=== PATIENT | female | born 1995 | race Caucasian/White ===

== ENCOUNTER 2017-09-28 14:53 | Outpatient (CLI) | payer BC ==
--- NOTE | 2017-09-28 17:11 | Ultrasound Report ---
EXAM: ABDOMEN ULTRASOUND LIMITED, RUQ EXAM DATE: 09/28/2017 03:54 PM. CLINICAL HISTORY: Right upper quadrant pain. COMPARISON: None. TECHNIQUE: Real-time scanning was performed with static images obtained. FINDINGS: Liver: Normal in size. Hyperechoic echotexture. 15.3 cm. Main portal vein flow: Hepatopetal. Gallbladder: Normal. No stones, wall thickening, or sonographic Gallardo's sign. Biliary System: CBD measures 4 mm. No intrahepatic or extrahepatic ductal dilatation. Other: The visualized pancreas and right kidney are unremarkable. No free fluid. IMPRESSION: 1. Fatty liver. 2. Unremarkable gallbladder and ducts. [facility] Referring Provider Line: [phone] SITE ID: [id number]
== END 2017-09-28 14:54 | disposition home or self-care (01) ==
LOC: DI 14:53 → EDSEX 14:53 → DI 14:54
PROVIDERS: ATTEND Family Medicine
DX: R10.9 Unspecified abdominal pain (principal); K76.0 Fatty (change of) liver, not elsewhere classified
CPT/HCPCS: 76705

== ENCOUNTER 2018-05-18 09:44 | Emergency (ER) | payer BC ==
[2018-05-18] MEDS ORDERED: SODIUM CHLORIDE 0.9% 2,000 ML IV ONE (11:04)
[2018-05-18 12:02] LABS: GLUCOSE, URINE (UA) NEGATIVE (NEGATIVE); KETONES,URINE (UA) 15 mg/dL (NEGATIVE); LEUKOCYTE ESTERASE, URINE SMALL (NEGATIVE); NITRITE,URINE NEGATIVE (NEGATIVE); OCCULT BLOOD,URINE NEGATIVE (NEGATIVE); PROTEIN,URINE TRACE mg/dL (NEGATIVE); UROBILINOGEN,URINE 1 (NORMAL) E.U./dL (NORMAL)
[2018-05-18 12:10] LABS: BILIRUBIN,URINE SMALL (NEGATIVE); CLARITY,URINE CLOUDY (CLEAR); ICTOTEST,URINE POSITIVE
[2018-05-18 12:11] LABS: BUN - BLOOD UREA NITROGEN 7 mg/dL (6-20); CALCIUM 9.7 mg/dL (8.5-10.3); CARBON DIOXIDE - CO2 22 mmol/L (21-32); CHLORIDE 102 mmol/L (101-111); CREATININE 0.6 mg/dL (0.4-1.0); GFR - MDRD 123 (>89); GLUCOSE 87 mg/dL (70-100); SODIUM 136 mmol/L (135-145)
[2018-05-18 12:21] LABS: BACTERIA,URINE Moderate /HPF (None Seen); RBC,URINE None Seen /HPF (0-5); SQUAMOUS EPITHELIAL CELL,UR MOD Squamous (<= Few)
[2018-05-18 12:22] LABS: AMORPHOUS SEDIMENT,UR Marked /LPF
[2018-05-18 12:23] LABS: KETONES, SERUM (ACETEST) NEGATIVE (NEGATIVE)
--- NOTE | 2018-05-18 12:32 | ED Physician Documentation ---
History of Present Illness - Stated complaint Stated Complaint: DEHYDRATION/6WKS PREG - Chief complaint Chief Complaint: Abd Pain - Additonal information Additional information: hx from pt 22 y/o approx 6 weeks EGA followed by Paola Chambers nurse dye range tender went to clinic today with NV and lower abd pain no vag bleed or dc some urinary discomfort sent to ER for hydration nurse dye range tender states pt does not want a sono because she believes the sono during her last caused her miscarriage Review of Systems Constitutional: denies: Fever Cardiac: denies: Chest pain / pressure GI: reports: Abdominal Pain, Nausea, Vomiting. denies: Diarrhea : reports: Dysuria, Now EGA (6 weeks). denies: Discharge, Vaginal bleeding Endocrine: denies: Easy bruising / bleeding Immunocompromised: denies: Immunocompromised PD PAST MEDICAL HISTORY - Past Medical History GI: Other Psych: ADD/ADHD Other Past Medical History: IBS - Past Surgical History Past Surgical History: Yes General: Bowel surgery HEENT: Tonsil/Adenoidectomy - Present Medications Home Medications: Ambulatory Orders Medication Instructions Recorded Confirmed Pnv No.121/Iron/Folic Acid 1 each PO DAILY #30 tablet 05/18/18 [ Multivitamin Tablet] Pyridoxine HCl [Vitamin B-6] 25 mg PO Q8H PRN #10 tablet 05/18/18 - Allergies Allergies/Adverse Reactions: Allergies Allergy/AdvReac Type Severity Reaction Status Date / Time No Known Drug Allergies Allergy Verified 05/18/18 10:09 - Social History Does the pt smoke?: No Smoking Status: Never smoker Does the pt drink ETOH?: No Does the pt have substance abuse?: No - Immunizations Immunizations are current?: Yes PD ED PE NORMAL - Vitals Vital signs reviewed: Yes - Cardiac Cardiac: RRR - Respiratory Respiratory: No respiratory distress - Abdomen Abdomen: Soft, Other (TTP suprapubic, no focal RLQ pain) - Female Female : Deferred (no bleeding , pt very anxious about TV sono etc due to prior miscarriage) Results - Vitals Vitals: Vital Signs - 24 hr 05/18/18 10:05 Temperature 36.6 C Heart Rate 93 Respiratory 16 Rate Blood Pressure 130/83 H O2 Saturation 98 Oxygen O2 Source Room air - Labs Labs: Laboratory Tests 08/08/18 08/08/18 08/08/18 11:25 11:35 11:54 Sodium 136 Potassium 3.5 Chloride 102 Carbon Dioxide 22 Anion Gap 12.0 BUN 7 Creatinine 0.6 Estimated GFR (MDRD) 123 Glucose 87 Calcium 9.7 HCG, Quant 47453.00 Urine Color DARK YELLOW Urine Clarity CLOUDY Urine pH 8.0 H Ur Specific [place] 1.015 Urine Protein TRACE Urine Glucose (UA) NEGATIVE Urine Ketones 15 H Urine Occult Blood NEGATIVE Urine Nitrite NEGATIVE Urine Bilirubin SMALL H Urine Urobilinogen 1 (NORMAL) Ur Leukocyte Esterase SMALL H Urine RBC None Seen Urine WBC 4-5 Ur Squamous Epith Cells MOD Squamous H Amorphous Sediment Marked Urine Bacteria Moderate H Urine Mucus Ur Microscopic Review INDICATED Urine Culture Comments NOT INDICATED Serum Ketones NEGATIVE 05/18/18 15:08 Sodium Potassium Chloride Carbon Dioxide Anion Gap BUN Creatinine Estimated GFR (MDRD) Glucose Calcium HCG, Quant Urine Color YELLOW Urine Clarity HAZY Urine pH 7.0 Ur Specific [place] 1.020 Urine Protein NEGATIVE Urine Glucose (UA) NEGATIVE Urine Ketones >=80 H Urine Occult Blood NEGATIVE Urine Nitrite NEGATIVE Urine Bilirubin NEGATIVE Urine Urobilinogen 0.2 (NORMAL) Ur Leukocyte Esterase SMALL H Urine RBC 0-5 Urine WBC 4-5 Ur Squamous Epith Cells FEW Squamous Amorphous Sediment Few Urine Bacteria Rare Urine Mucus Few Strands Ur Microscopic Review INDICATED Urine Culture Comments INDICATED Serum Ketones PD MEDICAL DECISION MAKING - ED course ED course: + urine ketones but no serum ketones given 2 L NS UA first time noit a clean catch second time no UTI - deferred pelvic 2/2 pt anxiety and no bleeding but added GC chlamydia to urine sono = possible IUP gest and yolk sac but not definitive on trans abd sono - L adnexa fine, R not seen, no free fluid will dc with ectopic precautions and close fup called dye range tender to explain situation and confirm follow up pt was feeling much better, abd non tender, tolerating PO, I carefully verbally and in writing explained all the finding s and precautions and need for follow up to her - Sepsis Event Vital Signs: Vital Signs - 24 hr 05/18/18 10:05 Temperature 36.6 C Heart Rate 93 Respiratory 16 Rate Blood Pressure 130/83 H O2 Saturation 98 Oxygen O2 Source Room air Departure - Departure Disposition: 01 Home, Self Care Clinical Impression: Abdominal pain affecting , Dehydration, Hyperemesis arising during Condition: Good Instructions: ED Dehydration, ED Abdominal Pain Rule Out Ectopic, ED Preg Morning Sickness, ED Miscarriage Poss, ED Care Follow-Up: Paola Chambers, LMW [Physician No Access] - Prescriptions: Pnv No.121/Iron/Folic Acid [ Multivitamin Tablet] 1 each PO DAILY #30 tablet Pyridoxine HCl [Vitamin B-6] 25 mg PO Q8H PRN #10 tablet PRN Reason: vomiting in Comments: The second urine sample did not show an infection - but cultures are running to be sure and the ER staff will call you if You were very dehydrated and we gave you 2 bags of IV fluids You had lower abdominal pain but your exam did not sggest appendicitis - if the pain localizes to the right lower abdomen we would want to check you again The ultrasound shows a probable early intrauterine - but it is too early to be sure and there is still a concern that the pain you are having could indicate a miscarriage or perhaps even an ectopic (where the baby implants outside the uterus which can cause dangerous or even fatal internal bleeding to the mother) Very close follow up with your dye range tender will be important to clarify if you might have an ectopic . You need to be seen Wednesday to have another blood test and another look with the ultrasound If at any time you have more severe abdominal pain, feel faint, have vaginal bleeding, or the pain localizes to one side of the abdomen or the other come straight back to the ER I have prescribed vitamins and also Vitamin B6 which is safe in for vomiting
--- NOTE | 2018-05-18 15:25 | Ultrasound Report ---
Procedure Date: 05/18/2018 Accession Number: [id number] / [id number] Procedure: US - OB First Trimester CPT Code: FULL RESULT: EXAM: OB First Trimester DATE: 05/18/2018 2:27 PM CLINICAL HISTORY: 6 wk EGA abd pain TECHNIQUE: Real-time scanning was performed with freight representative static images obtained. COMPARISON: None FINDINGS: Examination is limited by being limited due to transabdominal technique only as the patient could not tolerate transvaginal examination. The patient reports a last menstrual period of 04/06/2018. The patient reports she is , no beta-hCG level is available. A cystic structure within the endometrium, possibly gestational sac measures 13.3 mm which would correspond to an estimated gestational age of 5 weeks and 3 days. No embryo is identified, a possible yolk sac measures 3 mm. No cardiac activity is detected. There is no nearby fluid collection to suggest. Gestational hemorrhage. The right ovary is not seen. The left ovary measures 3.0 x 2.7 x 2.1 cm and appears overall unremarkable. There is no free pelvic fluid. IMPRESSION: Limited examination. If the patient is by laboratory test, this examination is radiographically classified as a of unknown location with a possible intrauterine gestational sac corresponding to a gestational age of 5 weeks and 3 days.
[2018-05-18 15:38] LABS: BILIRUBIN,URINE NEGATIVE (NEGATIVE); GLUCOSE, URINE (UA) NEGATIVE (NEGATIVE); KETONES,URINE (UA) >=80 mg/dL (NEGATIVE); LEUKOCYTE ESTERASE, URINE SMALL (NEGATIVE); NITRITE,URINE NEGATIVE (NEGATIVE); OCCULT BLOOD,URINE NEGATIVE (NEGATIVE); PROTEIN,URINE NEGATIVE (NEGATIVE); UROBILINOGEN,URINE 0.2 (NORMAL) E.U./dL (NORMAL)
[2018-05-18 15:39] LABS: CLARITY,URINE HAZY (CLEAR)
[2018-05-18 15:58] LABS: AMORPHOUS SEDIMENT,UR Few /LPF; BACTERIA,URINE Rare /HPF (None Seen); MUCUS,URINE Few Strands; RBC,URINE 0-5 /HPF (0-5); SQUAMOUS EPITHELIAL CELL,UR FEW Squamous (<= Few)
[2018-05-18 16:52] VITALS: BP 116/75
== END 2018-05-18 16:50 | disposition home or self-care (01) ==
LOC: ED 09:44
DX: O99.89 Other specified diseases and conditions complicating pregnancy, childbirth and the puerperium (principal); O21.1 Hyperemesis gravidarum with metabolic disturbance
CPT/HCPCS: 36415; 76801; 80048; 81001; 81003; 82009; 84702; 87086; 87491; 87591; 96360; 96361; 99283; 99284

== ENCOUNTER 2018-06-01 20:01 | Outpatient (CLI) | payer BC, MEDICAID ==
--- NOTE | 2018-06-01 21:01 | Ultrasound Report ---
Procedure Date: 06/01/2018 Accession Number: [id number] / [id number] Procedure: US - OB First Trimester CPT Code: FULL RESULT: EXAM: FIRST TRIMESTER OBSTETRIC ULTRASOUND (Less than 11 weeks) EXAM DATE: 06/01/2018 08:18 PM. CLINICAL HISTORY: . LMP: 04/06/2018. COMPARISONS: OB FIRST TRIMESTER 05/18/2018. TECHNIQUE: Transabdominal and transvaginal ultrasound examination with static image documentation. ASSESSMENT: Gestational Sac: Single intrauterine. Mean gestational sac diameter: 38 mm = 9 weeks 0 days. Embryo: 14 mm. 7 weeks 5 days. Cardiac activity: 161 bpm. Yolk sac: 4 mm. Amniotic fluid: Not accurately assessed at this gestational age. Early placenta: Not visible at this gestational age. Other: No perigestational fluid collection demonstrated. MATERNAL STRUCTURES: Uterus: Anteverted/Retroverted. Unremarkable. Cervix: Closed. Right Ovary/Adnexa: Unremarkable. Left Ovary/Adnexa: Unremarkable. Free Fluid: None. Other: None. IMPRESSION: 1. Single viable intrauterine at EGA 7 weeks 5 days with DIAMANTE 01/13/2019 based on crown-rump length, which is concordant with clinical dates. 2. Assigned dating is DIAMANTE 8 weeks 0 days based on last menstrual period. [facility]
== END 2018-06-01 20:02 | disposition home or self-care (01) ==
LOC: DI 20:01
PROVIDERS: ATTEND Midwife
DX: O26.841 Uterine size-date discrepancy, first trimester (principal); Z3A.01 Less than 8 weeks gestation of pregnancy
CPT/HCPCS: 76801

== ENCOUNTER 2018-07-05 17:22 | Emergency (ER) | payer BC, MEDICAID ==
--- NOTE | 2018-07-05 17:59 | ED Physician Documentation ---
PD HPI NVD - Stated complaint Stated Complaint: NAUSEA/SHAKING/13WK PREG - Chief complaint Chief Complaint: Abd Pain - History obtained from History obtained from: Patient - History of Present Illness Timing - onset: Yesterday Timing - duration: Days (2 days of nausea and vomiting with attempted oral intake. Feeling weak and lighteaded. She feels she passed out briefly when got up from sitting, a couple of times today.) Timing - details: Abrupt onset, Waxing and waning Associated symptoms: Fever. No: Abdominal pain, Chest pain, Hematemesis Contributing factors: Other (13 weeks and has had moderate gestational nausea. However, had not had the degree of symptoms she is having the past co uple of days.). No: Sick contact, Bad food Improved by: Vomiting Worsened by: Eating Similar symptoms before: Has not had sx before Review of Systems Constitutional: reports: Myalgias. denies: Fever, Chills Nose: denies: Rhinorrhea / runny nose, Congestion Throat: denies: Sore throat Respiratory: denies: Cough GI: reports: Nausea, Vomiting. denies: Abdominal Pain, Abdominal Swelling, Constipation, Diarrhea : reports: Now EGA (13 weeks). denies: Dysuria, Frequency, Discharge, Irregular menses Skin: denies: Rash, Lesions PD PAST MEDICAL HISTORY - Past Medical History Cardiovascular: None Respiratory: None Neuro: None GI: Other Psych: Anxiety, ADD/ADHD - Past Surgical History Past Surgical History: Yes General: Bowel surgery HEENT: Tonsil/Adenoidectomy - Present Medications Home Medications: Ambulatory Orders Medication Instructions Recorded Confirmed Pnv No.121/Iron/Folic Acid 1 each PO DAILY #30 tablet 05/18/18 [ Multivitamin Tablet] Pyridoxine HCl [Vitamin B-6] 25 mg PO Q8H PRN #10 tablet 05/18/18 Cyclobenzaprine [Flexeril] 10 mg PO BID #15 tablet 07/05/18 Famotidine [Pepcid] 20 mg PO ONCE #30 tablet 07/05/18 Ondansetron HCl [Zofran] 4 mg PO Q6H PRN #20 tablet 07/05/18 - Allergies Allergies/Adverse Reactions: Allergies Allergy/AdvReac Type Severity Reaction Status Date / Time No Known Drug Allergies Allergy Verified 05/18/18 10:09 - Social History Does the pt smoke?: No Smoking Status: Never smoker Does the pt drink ETOH?: No Does the pt have substance abuse?: No - Immunizations Immunizations are current?: Yes PD ED PE NORMAL - Vitals Vital signs reviewed: Yes - General General: Alert and oriented X 3, Well developed/nourished, Other (anxious but pleasant. ) - HEENT HEENT: PERRL, Pharynx benign. No: Moist mucous membranes - Neck Neck: Supple, no meningeal sign, No adenopathy - Cardiac Cardiac: No murmur. No: RRR (regular but tachycardic) - Respiratory Respiratory: Clear bilaterally - Abdomen Abdomen: Normal bowel sounds, Soft, Non tender, Non distended, No organomegaly, Other (bedside U/S showing normal IUP c/w dates and having good heart beat and movement. ) - Female Female : Deferred - Rectal Rectal: Deferred - Back Back: No CVA TTP - Derm Derm: Normal color, Warm and dry - Extremities Extremities: No tenderness to palpate, Normal ROM s pain, No edema, No calf tenderness / cord - Neuro Neuro: Alert and oriented X 3, No motor deficit, Normal speech Results - Vitals Vitals: Oxygen O2 Source Room air - Labs Labs: Laboratory Tests 07/05/18 07/05/18 17:45 20:00 Sodium 137 Potassium 3.3 L Chloride 102 Carbon Dioxide 23 Anion Gap 12.0 BUN 7 Creatinine 0.5 Estimated GFR (MDRD) 152 Glucose 86 Calcium 9.7 Total Bilirubin 0.9 AST 19 ALT 17 Alkaline Phosphatase 61 Total Protein 7.8 Albumin 4.1 Globulin 3.7 Albumin/Globulin Ratio 1.1 Lipase 21 L Urine Color YELLOW Urine Clarity HAZY Urine pH 6.0 Ur Specific [place] >=1.030 H Urine Protein NEGATIVE Urine Glucose (UA) NEGATIVE Urine Ketones >=80 H Urine Occult Blood NEGATIVE Urine Nitrite NEGATIVE Urine Bilirubin NEGATIVE Urine Urobilinogen 0.2 (NORMAL) Ur Leukocyte Esterase TRACE H Urine RBC 0-5 Urine WBC 4-5 Ur Squamous Epith Cells MANY Squamous H Urine Bacteria Many H Ur Microscopic Review INDICATED Urine Culture Comments NOT INDICATED PD MEDICAL DECISION MAKING - ED course Complexity details: re-evaluated patient (feeling improved with fluids and meds. She has some tenderness epigastric area, presume some gastritis in addition to the vomiting. ), considered differential, d/w patient - Sepsis Event Vital Signs: Oxygen O2 Source Room air Departure - Departure Disposition: 01 Home, Self Care Clinical Impression: Nausea and vomiting Qualifiers: Vomiting type: unspecified Vomiting Intractability: non-intractable Qualified Code(s): R11.2 - Nausea with vomiting, unspecified Qualifiers: Weeks of gestation: 13 weeks Qualified Code(s): Z3A.13 - 13 weeks gestation of Gastritis Qualifiers: Gastritis type: unspecified gastritis Chronicity: acute Gastritis bleeding: without bleeding Qualified Code(s): K29.00 - Acute gastritis without bleeding Condition: Stable Record reviewed to determine appropriate education?: Yes Instructions: ED Gastritis, ED Preg Morning Sickness Follow-Up: Paola Chambers LMW [Primary Care Provider] - Prescriptions: Cyclobenzaprine [Flexeril] 10 mg PO BID #15 tablet Famotidine [Pepcid] 20 mg PO ONCE #30 tablet Ondansetron HCl [Zofran] 4 mg PO Q6H PRN #20 tablet PRN Reason: Nausea / Vomiting Comments: Continue usual medications. Add ondansetron if needed for nausea and vomiting. It sounds like you have an irritated stomach so I would add famotidine acid reducing medicine daily for the next 2 or 3 weeks. For the back spasms you get periodically, he can use Flexeril muscle relaxant as well. The above medications are okay with . Drink lots of fluids. Follow-up with your primary care/goat driver later this week. Discharge Date/Time: 07/05/18 21:11
[2018-07-05] MEDS ORDERED: SODIUM CHLORIDE 0.9% 1,000 ML IV ONE ×2 (18:10→18:11)
[2018-07-05] MEDS ORDERED: ONDANSETRON 4 MG/2 ML VIAL IVP STA (18:10)
[2018-07-05] MEDS ORDERED: FAMOTIDINE 20 MG/2 ML VIAL IVP STA (18:10)
[2018-07-05 18:24] LABS: ALBUMIN 4.1 g/dL (3.2-5.5); ALBUMIN/GLOBULIN RATIO 1.1 (1.0-2.2); BILIRUBIN,TOTAL 0.9 mg/dL (0.2-1.0); CALCIUM 9.7 mg/dL (8.5-10.3); CREATININE 0.5 mg/dL (0.4-1.0); TOTAL PROTEIN 7.8 g/dL (6.7-8.2)
[2018-07-05] MEDS ORDERED: CYCLOBENZAPRINE 10 MG TABLET PO STA (19:13)
[2018-07-05 20:15] LABS: BILIRUBIN,URINE NEGATIVE (NEGATIVE); GLUCOSE, URINE (UA) NEGATIVE (NEGATIVE); KETONES,URINE (UA) >=80 mg/dL (NEGATIVE); LEUKOCYTE ESTERASE, URINE TRACE (NEGATIVE); NITRITE,URINE NEGATIVE (NEGATIVE); OCCULT BLOOD,URINE NEGATIVE (NEGATIVE); PROTEIN,URINE NEGATIVE (NEGATIVE); UROBILINOGEN,URINE 0.2 (NORMAL) E.U./dL (NORMAL)
[2018-07-05 20:18] LABS: CLARITY,URINE HAZY (CLEAR)
[2018-07-05 20:22] LABS: BACTERIA,URINE Many /HPF (None Seen); RBC,URINE 0-5 /HPF (0-5); SQUAMOUS EPITHELIAL CELL,UR MANY Squamous (<= Few)
[2018-07-05] MEDS ORDERED: ONDANSETRON ODT 4 MG Prepack 2 TL PRN (20:40)
[2018-07-05 20:45] VITALS: BP 113/63
== END 2018-07-05 21:11 | disposition home or self-care (01) ==
LOC: ED 17:22
DX: O21.9 Vomiting of pregnancy, unspecified (principal); O99.89 Other specified diseases and conditions complicating pregnancy, childbirth and the puerperium; K29.00 Acute gastritis without bleeding; Z3A.13 13 weeks gestation of pregnancy
CPT/HCPCS: 36415; 80053; 81001; 83690; 96361; 96374; 99283; 99284; A9270; 81003; 87086

== ENCOUNTER 2018-07-30 15:02 | Emergency (ER) | payer MEDICAID ==
[2018-07-30] MEDS ORDERED: ONDANSETRON 4 MG/2 ML VIAL IVP STA (15:30)
[2018-07-30] MEDS ORDERED: SODIUM CHLORIDE 0.9% 1,000 ML IV ONE (15:30)
--- NOTE | 2018-07-30 15:32 | ED Physician Documentation ---
PD HPI NVD - Stated complaint Stated Complaint: VOMITING,SYNCOP,16 WKS - Chief complaint Chief Complaint: Abd Pain - History obtained from History obtained from: Patient - History of Present Illness Timing - onset: Yesterday (22-year-old G1 at 16 weeks gestation who has been having difficulty with vomiting in this and started throwing up last night without associated diarrhea, urinary complaints or abdominal pain. She is vomited about 10 times without blood.) Review of Systems Constitutional: denies: Fever, Chills Cardiac: denies: Chest pain / pressure, Palpitations Respiratory: denies: Dyspnea, Cough GI: denies: Abdominal Pain, Diarrhea, Hematemesis, Bloody / black stool PD PAST MEDICAL HISTORY - Past Medical History Cardiovascular: None Respiratory: None Neuro: None GI: Other Psych: Anxiety, ADD/ADHD - Past Surgical History Past Surgical History: Yes General: Bowel surgery HEENT: Tonsil/Adenoidectomy - Present Medications Home Medications: Ambulatory Orders Medication Instructions Recorded Confirmed Pnv No.121/Iron/Folic Acid 1 each PO DAILY #30 tablet 05/18/18 [ Multivitamin Tablet] Pyridoxine HCl [Vitamin B-6] 25 mg PO Q8H PRN #10 tablet 05/18/18 Cyclobenzaprine [Flexeril] 10 mg PO BID #15 tablet 07/05/18 Famotidine [Pepcid] 20 mg PO ONCE #30 tablet 07/05/18 Ondansetron HCl [Zofran] 4 mg PO Q6H PRN #20 tablet 07/05/18 Doxylamine/Pyridoxine HCl 1 each PO Q6H PRN #30 tablet. 07/30/18 [Leesa Ibrahim 10-10 mg Tablet] Ondansetron Odt [Zofran] 4 mg TL Q6H PRN #10 tablet 07/30/18 - Allergies Allergies/Adverse Reactions: Allergies Allergy/AdvReac Type Severity Reaction Status Date / Time No Known Drug Allergies Allergy Verified 07/30/18 15:18 - Social History Does the pt smoke?: No Smoking Status: Never smoker Does the pt drink ETOH?: No Does the pt have substance abuse?: No - Immunizations Immunizations are current?: Yes PD ED PE NORMAL - Vitals Vital signs reviewed: Yes - General General: Alert and oriented X 3, No acute distress - Abdomen Abdomen: Normal bowel sounds, Soft, Non tender - Female Female : Other (Bedside transabdominal ultrasound shows single with heart rate of 143 and positive motion) - Neuro Neuro: Alert and oriented X 3, Normal speech Results - Vitals Vitals: Vital Signs - 24 hr 07/30/18 15:16 Temperature 36.0 C L Heart Rate 93 Respiratory 18 Rate Blood Pressure 117/74 O2 Saturation 96 Oxygen O2 Source Room air - Labs Labs: Laboratory Tests 07/30/18 07/30/18 15:35 15:46 Sodium 136 Potassium 3.2 L Chloride 102 Carbon Dioxide 23 Anion Gap 11.0 BUN 5 L Creatinine 0.5 Estimated GFR (MDRD) 152 Glucose 80 Calcium 9.4 Total Bilirubin < 0.2 L AST 19 ALT 15 Alkaline Phosphatase 54 Total Protein 7.2 Albumin 3.9 Globulin 3.3 Albumin/Globulin Ratio 1.2 Lipase 21 L Urine Color YELLOW Urine Clarity CLOUDY Urine pH 7.0 Ur Specific [place] 1.020 Urine Protein NEGATIVE Urine Glucose (UA) NEGATIVE Urine Ketones TRACE Urine Occult Blood NEGATIVE Urine Nitrite NEGATIVE Urine Bilirubin NEGATIVE Urine Urobilinogen 0.2 (NORMAL) Ur Leukocyte Esterase NEGATIVE Urine RBC 0-5 Urine WBC 0-3 Ur Squamous Epith Cells RARE Squamous Amorphous Sediment Marked Urine Bacteria None Seen Ur Microscopic Review INDICATED Urine Culture Comments NOT INDICATED PD MEDICAL DECISION MAKING - ED course ED course: 22-year-old G1 with vomiting in which is now recurrent issue feeling much better after Zofran and IV fluids. Potassium was repleted orally. She passed p.o. challenge. Departure - Departure Disposition: 01 Home, Self Care Clinical Impression: Hyperemesis arising during Condition: Good Record reviewed to determine appropriate education?: Yes Instructions: ED Preg Morning Sickness Prescriptions: Doxylamine/Pyridoxine HCl [Macis 10-10 mg Tablet] 1 each PO Q6H PRN #30 tablet.dr PRN Reason: Nausea / Vomiting Ondansetron Odt [Zofran] 4 mg TL Q6H PRN #10 tablet PRN Reason: Nausea / Vomiting Comments: Call your doctor to arrange a follow-up appointment, make the next available appointment. In the interim, return anytime if worse or if new symptoms develop.
[2018-07-30 15:54] LABS: BILIRUBIN,URINE NEGATIVE (NEGATIVE); GLUCOSE, URINE (UA) NEGATIVE (NEGATIVE); KETONES,URINE (UA) TRACE mg/dL (NEGATIVE); LEUKOCYTE ESTERASE, URINE NEGATIVE (NEGATIVE); NITRITE,URINE NEGATIVE (NEGATIVE); OCCULT BLOOD,URINE NEGATIVE (NEGATIVE); PROTEIN,URINE NEGATIVE (NEGATIVE); UROBILINOGEN,URINE 0.2 (NORMAL) E.U./dL (NORMAL)
[2018-07-30 16:03] LABS: AMORPHOUS SEDIMENT,UR Marked /LPF; BACTERIA,URINE None Seen /HPF (None Seen); CLARITY,URINE CLOUDY (CLEAR); RBC,URINE 0-5 /HPF (0-5); SQUAMOUS EPITHELIAL CELL,UR RARE Squamous (<= Few)
[2018-07-30 16:15] LABS: ALBUMIN 3.9 g/dL (3.2-5.5); ALBUMIN/GLOBULIN RATIO 1.2 (1.0-2.2); ALKALINE PHOSPHATASE 54 IU/L (42-121); ALT ALANINE AMINOTRANSFERASE 15 IU/L (10-60); AST ASPARTATE AMINOTRANSFERASE 19 IU/L (10-42); BILIRUBIN,TOTAL < 0.2 mg/dL (0.2-1.0); BUN - BLOOD UREA NITROGEN 5 mg/dL (6-20); CALCIUM 9.4 mg/dL (8.5-10.3); CARBON DIOXIDE - CO2 23 mmol/L (21-32); CHLORIDE 102 mmol/L (101-111); CREATININE 0.5 mg/dL (0.4-1.0); GFR - MDRD 152 (>89); GLUCOSE 80 mg/dL (70-100); LIPASE 21 U/L (22-51); SODIUM 136 mmol/L (135-145); TOTAL PROTEIN 7.2 g/dL (6.7-8.2)
[2018-07-30] MEDS ORDERED: POTASSIUM BICARB 25 MEQ TABLET PO STA (16:18)
[2018-07-30 16:41] VITALS: BP 112/64
== END 2018-07-30 16:40 | disposition home or self-care (01) ==
LOC: ED 15:02
DX: O21.8 Other vomiting complicating pregnancy (principal); Z3A.16 16 weeks gestation of pregnancy
CPT/HCPCS: 36415; 80053; 81001; 83690; 96361; 96374; 99283; A9270; 81003; 87086

== ENCOUNTER 2018-08-25 12:42 | Outpatient (CLI) | payer MEDICAID ==
--- NOTE | 2018-08-25 15:10 | Ultrasound Report ---
Reason: ENCNTR FOR SUPRVSN OF NORMAL FIRST PREG, SECOND TR Procedure Date: 08/25/2018 Accession Number: [id number] / [id number] Procedure: US - OB Detailed Eval CPT Code: FULL RESULT: EXAM: COMPLETE OBSTETRICAL ULTRASOUND EXAM DATE: 08/25/2018 02:23 PM. CLINICAL HISTORY: anatomic survey. COMPARISON: OB FIRST TRIMESTER 06/01/2018 8:18 PM. TECHNIQUE: Real-time sonographic evaluation of the fetus performed by the wool presser. Multiple customer loyalty representative static images were saved for review. Additional transvaginal imaging to more accurately evaluate cervical length/placental position/etc. DATING: Established EGA 20 weeks 1 day with DIAMANTE 01/11/2019 based on LMP/physician stated. GENERAL EVALUATION Pratt . Cardiac activity: 161 bpm. movement: Visualized. Presentation: Breech Placenta: Posterior fundal position. No evidence for previa. Umbilical cord: 3 vessel cord. Central placental cord origin. Amniotic fluid: Subjectively normal. MVP 3.8 cm. BIOMETRY Bi-Parietal Diameter (BPD): 4.9 cm, 20 weeks 6 days Head Circumference (HC): 18.1 cm, 20 weeks 3 days Abdominal Circumference (AC): 14.9 cm, 20 weeks 1 day Femur Length (FL): 3.3 cm, 20 weeks 2 days Estimated Weight: 340 g, 50th percentile for 20 weeks 1 day. ANATOMY The intracranial structures, profile, face/nose/lips, spine, 4 chamber heart, stomach, abdominal wall and cord insertion, diaphragm, kidneys, bladder, and extremities were visualized and demonstrate no abnormality. Suboptimal visualization of the outflow tracts due to position. MATERNAL STRUCTURES Uterus: Unremarkable. Cervix: Long and closed. Transabdominal length 6.3 cm. Right ovary/adnexa: Not specifically imaged Left ovary/adnexa: Not specifically imaged Free fluid: None. IMPRESSION: 1. Pratt live intrauterine with gestational age 20 weeks 1 day based on LMP/physician stated. 2. Estimated weight is within expected limits for assigned dating. 3. Normal anatomic survey. No anatomic abnormalities are detected at this time. 4. Suboptimal visualization of cardiac outflow tracts due to position. Recommend short interval repeat imaging for survey completion. [facility]
== END 2018-08-25 12:43 | disposition home or self-care (01) ==
LOC: DI 12:42
PROVIDERS: ATTEND Midwife
DX: Z34.02 Encounter for supervision of normal first pregnancy, second trimester (principal)
CPT/HCPCS: 76811

== ENCOUNTER 2018-09-13 14:15 | Outpatient (CLI) | payer MEDICAID ==
--- NOTE | 2018-09-13 15:41 | Ultrasound Report ---
Reason: F/U FAS FOR INCOMPLETE VIEW OF HEART Procedure Date: 09/13/2018 Accession Number: [id number] / [id number] Procedure: US - OB F/U or Repeat CPT Code: FULL RESULT: EXAM: COMPLETE OBSTETRICAL ULTRASOUND EXAM DATE: 09/13/2018 02:45 PM. CLINICAL HISTORY: anatomic survey. COMPARISON: 08/25/2018. TECHNIQUE: Real-time sonographic evaluation of the fetus performed by the duplicating machine operator. Multiple sales representative supervisor static images were saved for review. DATING: Established EGA 22 weeks 6 days with DIAMANTE 01/11/2019 based on the referring physician. EGA 23 weeks 0 days with DIAMANTE 01/10/2019 based on the current ultrasound. GENERAL EVALUATION [place] . Cardiac activity: 140 bpm. movement: Visualized. Presentation: Cephalic. Placenta: Posterior position. No evidence for previa. Amniotic fluid: TANMAY of 15.6 MVP 4.5 cm. BIOMETRY Bi-Parietal Diameter (BPD): 5.6 cm, 22 weeks 6 days Head Circumference (HC): 20.6 cm, 22 weeks 4 days Abdominal Circumference (AC): 18.8 cm, 23 weeks 3 days Femur Length (FL): 4.1 cm, 23 weeks 3 days Estimated Weight: 591 g, 53rd percentile for 22 weeks 6 days. ANATOMY All cardiac chambers and the right and left ventricular outflow tract were adequately visualized and appeared normal. MATERNAL STRUCTURES Uterus: Visualized portions are unremarkable. Cervix: Long and closed. Transabdominal length 5.2 cm. Free fluid: None. IMPRESSION: 1. Pratt live intrauterine with gestational age 22 weeks 6 days based on the referring physician. 2. Estimated weight is within expected limits for assigned dating. 3. Normal completion of anatomic survey with normal views of the heart. No abnormalities are identified. [facility]
== END 2018-09-13 14:16 | disposition home or self-care (01) ==
LOC: DI 14:15
PROVIDERS: ATTEND Midwife
DX: Z36.9 Encounter for antenatal screening, unspecified (principal)
CPT/HCPCS: 76816

== ENCOUNTER 2018-10-15 12:56 | Emergency (ER) | payer MEDICAID ==
[2018-10-15] MEDS ORDERED: HYDROcod/ACETAM 5/325 MG TABLET PO STA ×2 (13:26→14:10)
[2018-10-15 13:42] LABS: BASOPHILS % (AUTO) 0.2 %; EOSINOPHILS # (AUTO) 0.1 10^3/uL (0.0-0.7); EOSINOPHILS % (AUTO) 1.1 %; HGB - HEMOGLOBIN 12.1 g/dL (12.0-16.0); LYMPHOCYTES # (AUTO) 2.4 10^3/uL (1.5-3.5); LYMPHOCYTES % (AUTO) 18.8 %; MEAN CORPUSCULAR HEMOGLOBIN 31.5 pg (27.0-31.0); MEAN CORPUSCULAR HGB CONC 34.4 g/dL (32.0-36.0); MEAN CORPUSCULAR VOLUME 91.7 fL (81.0-99.0); MEAN PLATELET VOLUME 7.2 fL (7.9-10.8); MONOCYTES # (AUTO) 0.6 10^3/uL (0.0-1.0); MONOCYTES % (AUTO) 4.9 %; NEUTROPHILS # (AUTO) 9.7 10^3/uL (1.5-6.6); PLT - PLATELET COUNT 330 10^3/uL (130-450); RED BLOOD COUNT 3.84 10^6/uL (4.20-5.40); WHITE BLOOD COUNT 12.9 x10^3/uL (4.8-10.8)
[2018-10-15 13:46] LABS: BILIRUBIN,URINE NEGATIVE (NEGATIVE); GLUCOSE, URINE (UA) NEGATIVE (NEGATIVE); KETONES,URINE (UA) NEGATIVE (NEGATIVE); LEUKOCYTE ESTERASE, URINE NEGATIVE (NEGATIVE); NITRITE,URINE NEGATIVE (NEGATIVE); OCCULT BLOOD,URINE NEGATIVE (NEGATIVE); PH,URINE 7.5 PH (5.0-7.5); PROTEIN,URINE NEGATIVE (NEGATIVE); UROBILINOGEN,URINE 0.2 (NORMAL) E.U./dL (NORMAL)
[2018-10-15 13:54] LABS: ALBUMIN 3.4 g/dL (3.2-5.5); BILIRUBIN,TOTAL 0.3 mg/dL (0.2-1.0); CALCIUM 9.2 mg/dL (8.5-10.3); CREATININE 0.5 mg/dL (0.4-1.0); TOTAL PROTEIN 6.9 g/dL (6.7-8.2)
[2018-10-15 13:57] LABS: CLARITY,URINE CLEAR (CLEAR)
--- NOTE | 2018-10-15 14:31 | ED Physician Documentation ---
History of Present Illness - Stated complaint Stated Complaint: HEADACHE - Chief complaint Chief Complaint: Neuro - History obtained from History obtained from: Patient - History of Present Illness Timing: How many days ago (2) Pain level max: 5 Pain level now: 4 - Additonal information Additional information: 22-year-old female states that she is getting over a cold and has developed a right-sided headache for the past 2 days. Feels sharp in nature. Better with Tylenol and rest. Worse with bright lights and loud noises. Has had headaches with this . No neurological deficits. No visual changes. No numbness or tingling. No chest pain or neck pain. She is 27 weeks . No problems with the thus far. Review of Systems Constitutional: denies: Fever, Chills Nose: denies: Epistaxis, Sinus pressure / pain Throat: denies: Sore throat Cardiac: denies: Chest pain / pressure Respiratory: denies: Cough GI: denies: Abdominal Pain, Vomiting, Diarrhea : denies: Dysuria, Frequency, Hesitancy, Vaginal bleeding Skin: denies: Rash Musculoskeletal: denies: Neck pain, Back pain Neurologic: denies: Focal weakness, Numbness, Difficulty speaking, Confused, Altered mental status, Head injury, LOC PD PAST MEDICAL HISTORY - Past Medical History Past Medical History: Yes Cardiovascular: None Respiratory: None Neuro: None GI: Other Psych: Anxiety, ADD/ADHD - Past Surgical History Past Surgical History: Yes General: Bowel surgery HEENT: Tonsil/Adenoidectomy - Present Medications Home Medications: Ambulatory Orders Medication Instructions Recorded Confirmed Pnv No.121/Iron/Folic Acid 1 each PO DAILY #30 tablet 05/18/18 [ Multivitamin Tablet] Pyridoxine HCl [Vitamin B-6] 25 mg PO Q8H PRN #10 tablet 05/18/18 Doxylamine/Pyridoxine HCl 1 each PO Q6H PRN #30 tablet. 07/30/18 [Leesa Ibrahim 10-10 mg Tablet] Hydrocodone/Acetaminophen 1 - 2 each PO Q6H PRN #6 tablet 10/15/18 [Hydrocodon-Acetaminophen 5-325] - Allergies Allergies/Adverse Reactions: Allergies Allergy/AdvReac Type Severity Reaction Status Date / Time No Known Drug Allergies Allergy Verified 10/15/18 13:06 - Social History Does the pt smoke?: No Smoking Status: Never smoker Does the pt drink ETOH?: No Does the pt have substance abuse?: No - Immunizations Immunizations are current?: Yes - POLST Patient has POLST: No PD ED PE NORMAL - Vitals Vital signs reviewed: Yes - General General: Alert and oriented X 3, No acute distress, Well developed/nourished - HEENT HEENT: PERRL, Moist mucous membranes, Pharynx benign - Neck Neck: Supple, no meningeal sign - Cardiac Cardiac: RRR, Strong equal pulses - Respiratory Respiratory: No respiratory distress, Clear bilaterally - Abdomen Abdomen: Soft, Non tender, Non distended - Back Back: No spinal TTP - Derm Derm: Warm and dry - Extremities Extremities: No edema - Neuro Neuro: Alert and oriented X 3, tandem operator 2-12 intact, No motor deficit, No sensory deficit, Normal speech, Other (No tenderness over the temporal artery) - Psych Psych: Normal mood, Normal affect Results - Vitals Vitals: Vital Signs - 24 hr 10/15/18 10/15/18 13:04 14:35 Temperature 36.4 C L Heart Rate 111 H 84 Respiratory 22 16 Rate Blood Pressure 140/87 H 120/76 O2 Saturation 98 97 Oxygen O2 Source Room air - Labs Labs: Laboratory Tests 10/15/18 10/15/18 10/15/18 13:38 13:39 13:39 WBC 12.9 H RBC 3.84 L Hgb 12.1 Hct 35.2 L MCV 91.7 MCH 31.5 H MCHC 34.4 RDW 14.0 Plt Count 330 MPV 7.2 L Neut # (Auto) 9.7 H Lymph # (Auto) 2.4 [place] # (Auto) 0.6 Eos # (Auto) 0.1 Baso # (Auto) 0.0 Absolute Nucleated RBC 0.00 Nucleated RBC % 0.0 Sodium 137 Potassium 3.6 Chloride 105 Carbon Dioxide 21 Anion Gap 11.0 BUN 6 Creatinine 0.5 Estimated GFR (MDRD) 152 Glucose 108 H Calcium 9.2 Total Bilirubin 0.3 AST 26 ALT 22 Alkaline Phosphatase 70 Total Protein 6.9 Albumin 3.4 Globulin 3.5 Albumin/Globulin Ratio 1.0 Lipase 23 Urine Color YELLOW Urine Clarity CLEAR Urine pH 7.5 Ur Specific [place] 1.020 Urine Protein NEGATIVE Urine Glucose (UA) NEGATIVE Urine Ketones NEGATIVE Urine Occult Blood NEGATIVE Urine Nitrite NEGATIVE Urine Bilirubin NEGATIVE Urine Urobilinogen 0.2 (NORMAL) Ur Leukocyte Esterase NEGATIVE Ur Microscopic Review NOT INDICATED Urine Culture Comments NOT INDICATED PD MEDICAL DECISION MAKING - ED course Complexity details: reviewed results, re-evaluated patient, considered differential, d/w patient, d/w network pricing consultant ED course: 22-year-old female, 27 weeks with a right-sided headache for the past 2 days. Similar to prior headaches. Discussed the case with Dr. Farr, OB on- call who recommend treatment with hydrocodone and follow-up as an outpatient. Also recommended a workup for possible preeclampsia. Labs do not show any acute abnormalities. Patient is not significantly hypertensive. No significant edema. Headache improved. No evidence of tumor, aneurysm, subarachnoid hemorrhage. Patient counseled regarding signs and symptoms for which I believe and urgent re-evaluation would be necessary. Patient with good understanding of and agreement to plan and is comfortable going home at this time This document was made in part using voice recognition software. While efforts are made to proofread this document, sound alike and grammatical errors may occur. Departure - Departure Disposition: 01 Home, Self Care Clinical Impression: Headache Qualifiers: Headache type: unspecified Headache chronicity pattern: acute headache Intractability: not intractable Qualified Code(s): R51 - Headache Condition: Good Instructions: ED Cephalgia Unspecified Follow-Up: [facility] [Provider Group] - Within 1 week Prescriptions: Hydrocodone/Acetaminophen [Hydrocodon-Acetaminophen 5-325] 1 - 2 each PO Q6H PRN #6 tablet PRN Reason: pain Comments: Return if you worsen. Do not drink alcohol or drive while on narcotic pain medicine. Note that many narcotic pain relievers also contain tylenol/acetaminophen. Please ensure that your total dose of acetaminophen from all sources does not exceed 3 grams (3000mg) per day. You may constipated on this medication, take a stool softener such as "Colace" twice a day while you are on it. Also recommend a [id number] laxative such as senna or MiraLAX any day that you do not have a bowel movement. If you received narcotic pain medication in the emergency department, do not drive or operate machinery for the next 24 hours. Discharge Date/Time: 10/15/18 14:53
[2018-10-15 14:36] VITALS: BP 120/76
== END 2018-10-15 14:53 | disposition home or self-care (01) ==
LOC: ED 12:56
DX: O99.89 Other specified diseases and conditions complicating pregnancy, childbirth and the puerperium (principal); R51 Headache; Z3A.27 27 weeks gestation of pregnancy
CPT/HCPCS: 36415; 80053; 81003; 83690; 85025; 99283; A9270; 81001; 87086

== ENCOUNTER 2018-10-24 08:00 | Outpatient (CLI) | payer MEDICAID | END 2018-10-24 23:59 | LOC: LAB.R 08:00 | PROVIDERS: ATTEND Nurse Practitioner Obstetrics & Gynecology | DX: Z36.89 Encounter for other specified antenatal screening (principal) | CPT/HCPCS: 87480; 87491; 87510; 87591; 87660 ==

== ENCOUNTER 2018-10-25 10:59 | Outpatient (CLI) | payer MEDICAID ==
[2018-10-25 17:25] LABS: HGB - HEMOGLOBIN 12.1 g/dL (12.0-16.0); MEAN CORPUSCULAR HEMOGLOBIN 31.5 pg (27.0-31.0); MEAN CORPUSCULAR HGB CONC 33.1 g/dL (32.0-36.0); MEAN CORPUSCULAR VOLUME 95.1 fL (81.0-99.0); RED BLOOD COUNT 3.82 10^6/uL (4.20-5.40); RED CELL DISTRIBUTION WIDTH 14.2 % (12.0-15.0)
[2018-10-26 13:17] LABS: HEPATITIS C ANTIBODY NON-REACTIVE (NON-REACTIVE)
[2018-10-26 13:56] LABS: HIV AG/AB 4TH GEN NON-REACTIVE (NON-REACTIVE)
[2018-10-27 12:07] LABS: HSV 1 IGG TYPE SPECIFIC AB <0.90 index; HSV 2 IGG TYPE SPECIFIC AB <0.90 index
== END 2018-10-25 11:00 | disposition home or self-care (01) ==
LOC: LAB.F 10:59
PROVIDERS: ATTEND Nurse Practitioner Obstetrics & Gynecology
DX: Z36.89 Encounter for other specified antenatal screening (principal); Z11.3 Encounter for screening for infections with a predominantly sexual mode of transmission
CPT/HCPCS: 36415; 81599; 82950; 85027; 86695; 86696; 86803; 86850; 87389; 87491; 87529; 87591

== ENCOUNTER 2018-11-12 15:35 | Outpatient (CLI) | payer MEDICAID ==
[2018-11-12 16:13] VITALS: BP 103/65
== END 2018-11-12 16:25 | disposition home or self-care (01) ==
LOC: WFO 15:35 → FBP 15:37 → WFO 16:25
PROVIDERS: ATTEND Registered Nurse
DX: O99.89 Other specified diseases and conditions complicating pregnancy, childbirth and the puerperium (principal); R07.9 Chest pain, unspecified; Z3A.31 31 weeks gestation of pregnancy
CPT/HCPCS: 99212

== ENCOUNTER 2018-11-12 16:48 | Emergency (ER) | payer MEDICAID ==
[2018-11-12] MEDS ORDERED: SODIUM CHLORIDE 0.9% 1,000 ML IV ONE (17:23)
[2018-11-12 17:43] LABS: BASOPHILS % (AUTO) 0.3 %; EOSINOPHILS # (AUTO) 0.2 10^3/uL (0.0-0.7); EOSINOPHILS % (AUTO) 1.5 %; HGB - HEMOGLOBIN 12.2 g/dL (12.0-16.0); LYMPHOCYTES # (AUTO) 2.3 10^3/uL (1.5-3.5); MEAN CORPUSCULAR HEMOGLOBIN 31.3 pg (27.0-31.0); MEAN CORPUSCULAR HGB CONC 33.4 g/dL (32.0-36.0); MEAN CORPUSCULAR VOLUME 93.7 fL (81.0-99.0); MEAN PLATELET VOLUME 7.4 fL (7.9-10.8); MONOCYTES # (AUTO) 1.3 10^3/uL (0.0-1.0); MONOCYTES % (AUTO) 8.9 %; NEUTROPHILS # (AUTO) 10.7 10^3/uL (1.5-6.6); NEUTROPHILS % (AUTO) 73.3 %; PLT - PLATELET COUNT 317 10^3/uL (130-450); RED CELL DISTRIBUTION WIDTH 14.4 % (12.0-15.0); WHITE BLOOD COUNT 14.5 x10^3/uL (4.8-10.8)
[2018-11-12 17:44] LABS: BILIRUBIN,URINE NEGATIVE (NEGATIVE); GLUCOSE, URINE (UA) NEGATIVE (NEGATIVE); KETONES,URINE (UA) NEGATIVE (NEGATIVE); LEUKOCYTE ESTERASE, URINE NEGATIVE (NEGATIVE); NITRITE,URINE NEGATIVE (NEGATIVE); OCCULT BLOOD,URINE NEGATIVE (NEGATIVE); PROTEIN,URINE NEGATIVE (NEGATIVE); UROBILINOGEN,URINE 0.2 (NORMAL) E.U./dL (NORMAL)
--- NOTE | 2018-11-12 17:56 | ED Physician Documentation ---
History of Present Illness - Stated complaint Stated Complaint: DIFF BREATHING - Chief complaint Chief Complaint: Resp - Additonal information Additional information: 23-year-old female presents the emergency department with complaints of feeling short of breath with chest pressure. The patient's symptoms started earlier today the patient is describing chest pressure when laying flat and feeling short of breath. The patient also reports feeling very lightheaded and dizzy with changing of positions. The patient denies fever, chills, body aches or URI symptoms. The patient denies abdominal contractions, premature rupture of membranes, vaginal discharge or vaginal bleeding. Symptoms are described as moderate. No other associated symptoms. No triggering factors Review of Systems Constitutional: denies: Fever, Chills Eyes: denies: Discharge Ears: denies: Ear pain Nose: denies: Congestion Throat: denies: Sore throat Cardiac: reports: Chest pain / pressure. denies: Pedal edema Respiratory: reports: Dyspnea GI: denies: Abdominal Pain : denies: Dysuria Skin: denies: Rash Musculoskeletal: denies: Neck pain Immunocompromised: denies: Chemotherapy PD PAST MEDICAL HISTORY - Past Medical History Cardiovascular: None Respiratory: None Neuro: None GI: Other Psych: Anxiety, ADD/ADHD - Past Surgical History Past Surgical History: Yes General: Bowel surgery HEENT: Tonsil/Adenoidectomy - Present Medications Home Medications: Ambulatory Orders Medication Instructions Recorded Confirmed Pnv No.122/Iron/Folic Acid 1 tab PO DAILY 11/12/18 11/12/18 [ Multi Tablet] - Allergies Allergies/Adverse Reactions: Allergies Allergy/AdvReac Type Severity Reaction Status Date / Time No Known Drug Allergies Allergy Verified 11/12/18 16:53 - Social History Does the pt smoke?: No Smoking Status: Never smoker Does the pt drink ETOH?: No Does the pt have substance abuse?: No - Immunizations Immunizations are current?: Yes - POLST Patient has POLST: No PD ED PE NORMAL - General General: Alert and oriented X 3, No acute distress - HEENT HEENT: Atraumatic, PERRL, EOMI, Ears normal - Neck Neck: Supple, no meningeal sign - Cardiac Cardiac: RRR, Strong equal pulses - Respiratory Respiratory: No respiratory distress, Clear bilaterally - Abdomen Abdomen: Soft, Non tender, Non distended, Other (Gravid abdomen, nontender nondistended) - Back Back: No CVA TTP - Derm Derm: Normal color - Extremities Extremities: No deformity - Neuro Neuro: Alert and oriented X 3, Normal speech - Psych Psych: Normal affect Results - Vitals Vitals: Vital Signs - 24 hr 11/12/18 16:51 Temperature 36.4 C L Heart Rate 96 Respiratory 18 Rate Blood Pressure 136/91 H O2 Saturation 100 Oxygen O2 Source Room air - EKG (time done) 17:42 Rate: Rate (enter#) Rhythm: NSR [place]: Normal Intervals: Normal [place] QRS: Normal Ischemia: Normal ST segments - Labs Labs: Laboratory Tests 11/12/18 11/12/18 11/12/18 17:17 17:17 17:30 WBC 14.5 H RBC 3.90 L Hgb 12.2 Hct 36.6 L MCV 93.7 MCH 31.3 H MCHC 33.4 RDW 14.4 Plt Count 317 MPV 7.4 L Neut # (Auto) 10.7 H Lymph # (Auto) 2.3 [place] # (Auto) 1.3 H Eos # (Auto) 0.2 Baso # (Auto) 0.0 Absolute Nucleated RBC 0.00 Nucleated RBC % 0.0 Sodium Potassium Chloride Carbon Dioxide Anion Gap BUN Creatinine Estimated GFR (MDRD) Glucose Calcium Total Bilirubin AST ALT Alkaline Phosphatase Troponin I B-Natriuretic Peptide Total Protein Albumin Globulin Albumin/Globulin Ratio Lipase Urine Color Urine Clarity Urine pH Ur Specific [place] Urine Protein Urine Glucose (UA) Urine Ketones Urine Occult Blood Urine Nitrite Urine Bilirubin Urine Urobilinogen Ur Leukocyte Esterase Ur Microscopic Review Urine Culture Comments Influenza A (Rapid) Negative Influenza B (Rapid) Negative Group A Strep Rapid Negative 11/12/18 11/12/18 11/12/18 17:30 17:30 17:30 WBC RBC Hgb Hct MCV MCH MCHC RDW Plt Count MPV Neut # (Auto) Lymph # (Auto) [place] # (Auto) Eos # (Auto) Baso # (Auto) Absolute Nucleated RBC Nucleated RBC % Sodium 137 Potassium 3.7 Chloride 104 Carbon Dioxide 24 Anion Gap 9.0 BUN 6 Creatinine 0.5 Estimated GFR (MDRD) 150 Glucose 91 Calcium 9.8 Total Bilirubin < 0.2 L AST 21 ALT 20 Alkaline Phosphatase 83 Troponin I < 0.04 B-Natriuretic Peptide 41 Total Protein 6.5 L Albumin 3.1 L Globulin 3.4 Albumin/Globulin Ratio 0.9 L Lipase 24 Urine Color Urine Clarity Urine pH Ur Specific [place] Urine Protein Urine Glucose (UA) Urine Ketones Urine Occult Blood Urine Nitrite Urine Bilirubin Urine Urobilinogen Ur Leukocyte Esterase Ur Microscopic Review Urine Culture Comments Influenza A (Rapid) Influenza B (Rapid) Group A Strep Rapid 11/12/18 17:30 WBC RBC Hgb Hct MCV MCH MCHC RDW Plt Count MPV Neut # (Auto) Lymph # (Auto) [place] # (Auto) Eos # (Auto) Baso # (Auto) Absolute Nucleated RBC Nucleated RBC % Sodium Potassium Chloride Carbon Dioxide Anion Gap BUN Creatinine Estimated GFR (MDRD) Glucose Calcium Total Bilirubin AST ALT Alkaline Phosphatase Troponin I B-Natriuretic Peptide Total Protein Albumin Globulin Albumin/Globulin Ratio Lipase Urine Color YELLOW Urine Clarity CLEAR Urine pH 7.0 Ur Specific [place] 1.015 Urine Protein NEGATIVE Urine Glucose (UA) NEGATIVE Urine Ketones NEGATIVE Urine Occult Blood NEGATIVE Urine Nitrite NEGATIVE Urine Bilirubin NEGATIVE Urine Urobilinogen 0.2 (NORMAL) Ur Leukocyte Esterase NEGATIVE Ur Microscopic Review NOT INDICATED Urine Culture Comments NOT INDICATED Influenza A (Rapid) Influenza B (Rapid) Group A Strep Rapid PD MEDICAL DECISION MAKING - ED course ED course: The patient was complaining of chest pain and shortness of breath and given the fact that she is I explained that this could potentially be a pulmonary embolism and that we do need to do further imaging to rule this out. The patient declined this study and after IV fluids felt much improved and wanted to be discharged home. I advised that the patient should return back to the emergency department at any point for reevaluation if her symptoms worsen or return. The patient understands and agrees. The patient will otherwise follow- up with primary care Departure - Departure Disposition: 01 Home, Self Care Clinical Impression: Chest pressure Condition: Good Instructions: ED Chest Pain O Comments: You declined any imaging of your chest, specifically a CT angiogram to rule out a pulmonary embolism. You have decided that you feel better I do not want this study at this time. Please follow-up with primary care as we discussed. Please return to the emergency department at any point for reevaluation
[2018-11-12 17:57] LABS: CLARITY,URINE CLEAR (CLEAR)
[2018-11-12 18:00] LABS: ALBUMIN 3.1 g/dL (3.2-5.5); ALBUMIN/GLOBULIN RATIO 0.9 (1.0-2.2); ALKALINE PHOSPHATASE 83 IU/L (42-121); ALT ALANINE AMINOTRANSFERASE 20 IU/L (10-60); AST ASPARTATE AMINOTRANSFERASE 21 IU/L (10-42); BILIRUBIN,TOTAL < 0.2 mg/dL (0.2-1.0); BUN - BLOOD UREA NITROGEN 6 mg/dL (6-20); CALCIUM 9.8 mg/dL (8.5-10.3); CARBON DIOXIDE - CO2 24 mmol/L (21-32); CHLORIDE 104 mmol/L (101-111); CREATININE 0.5 mg/dL (0.4-1.0); GFR - MDRD 150 (>89); GLUCOSE 91 mg/dL (70-100); LIPASE 24 U/L (22-51); SODIUM 137 mmol/L (135-145); TOTAL PROTEIN 6.5 g/dL (6.7-8.2)
[2018-11-12 18:49] VITALS: BP 118/75
== END 2018-11-12 18:49 | disposition home or self-care (01) ==
LOC: ED 16:48
DX: O99.89 Other specified diseases and conditions complicating pregnancy, childbirth and the puerperium (principal); R07.89 Other chest pain; R06.02 Shortness of breath; Z3A.31 31 weeks gestation of pregnancy
CPT/HCPCS: 36415; 80053; 81001; 81003; 83690; 83880; 84484; 85025; 87070; 87086; 87275; 87276; 87430; 93005; 96360; 99212; 99283; 99284

== ENCOUNTER 2018-11-25 16:39 | Outpatient (CLI) | payer MEDICAID ==
[2018-11-25 18:57] LABS: MUDS CUTOFF CONCENTRATIONS CUTOFF CONC BELOW:
[2018-11-25 19:19] LABS: AMPHETAMINE SCREEN,URINE NEGATIVE (NEGATIVE); BENZODIAZEPINES SCREEN, URINE NEGATIVE (NEGATIVE); COCAINE SCREEN URINE NEGATIVE (NEGATIVE); METHADONE SCREEN, URINE NEGATIVE (NEGATIVE); METHAMPHETAMINES SCREEN, URINE NEGATIVE (NEGATIVE); OPIATE SCREEN, URINE NEGATIVE (NEGATIVE); OXYCODONE SCREEN, URINE NEGATIVE (NEGATIVE); PROPOXYPHENE SCREEN, URINE NEGATIVE (NEGATIVE); TRICYCLIC ANTIDEPRESSANT,URINE NEGATIVE (NEGATIVE)
== END 2018-11-25 23:59 | disposition home or self-care (01) ==
LOC: LAB.R 16:39
PROVIDERS: ATTEND Nurse Practitioner Obstetrics & Gynecology
DX: Z36.9 Encounter for antenatal screening, unspecified (principal)
CPT/HCPCS: 80306; 87480; 87510; 87660

== ENCOUNTER 2018-12-09 08:00 | Outpatient (CLI) | payer MEDICAID | END 2018-12-09 23:59 | disposition home or self-care (01) | LOC: LAB.R 08:00 | PROVIDERS: ATTEND Registered Nurse | DX: Z34.90 Encounter for supervision of normal pregnancy, unspecified, unspecified trimester (principal) | CPT/HCPCS: 87491; 87591; 87797 ==

== ENCOUNTER 2018-12-09 14:29 | Outpatient (CLI) | payer MEDICAID ==
[2018-12-10 11:57] LABS: HEPATITIS C ANTIBODY NON-REACTIVE (NON-REACTIVE)
[2018-12-10 12:36] LABS: HIV AG/AB 4TH GEN NON-REACTIVE (NON-REACTIVE)
== END 2018-12-09 14:30 | disposition home or self-care (01) ==
LOC: LAB 14:29
PROVIDERS: ATTEND Registered Nurse
DX: Z34.90 Encounter for supervision of normal pregnancy, unspecified, unspecified trimester (principal)
CPT/HCPCS: 36415; 81599; 86592; 86803; 87389

== ENCOUNTER 2018-12-12 19:14 | Outpatient (CLI) | payer MEDICAID ==
[2018-12-12] MEDS ORDERED: LACTATED RINGERS 1,000 ML IV SCH (20:13)
[2018-12-12 20:22] LABS: BILIRUBIN,URINE NEGATIVE (NEGATIVE); GLUCOSE, URINE (UA) NEGATIVE (NEGATIVE); KETONES,URINE (UA) NEGATIVE (NEGATIVE); LEUKOCYTE ESTERASE, URINE NEGATIVE (NEGATIVE); NITRITE,URINE NEGATIVE (NEGATIVE); OCCULT BLOOD,URINE NEGATIVE (NEGATIVE); PROTEIN,URINE NEGATIVE (NEGATIVE); UROBILINOGEN,URINE 0.2 (NORMAL) E.U./dL (NORMAL)
[2018-12-12 20:26] LABS: CLARITY,URINE HAZY (CLEAR)
[2018-12-12] MEDS ORDERED: SODIUM CHLORIDE FLUSH 0.9% 10 ML SYRINGE ONE (20:29)
[2018-12-12 20:36] LABS: BACTERIA,URINE Rare /HPF (None Seen); RBC,URINE 0-5 /HPF (0-5); SQUAMOUS EPITHELIAL CELL,UR MOD Squamous (<= Few)
[2018-12-12] MEDS ORDERED: FLUCONAZOLE 100 MG TABLET PO SCH (23:45)
[2018-12-13 00:18] VITALS: BP 130/82
--- NOTE | 2018-12-14 09:16 | PROVIDER PROGRESS NOTE ---
Subjective - Subjective Subjective: 23yo @ 35.5wks gestation presents to OB triage with c/o contractions since approximately 1330 this afternoon. She states her contractions are now 1-2 minutes apart. She denies VB or Lof and reports +FM. Contractions every 3-5 minutes with uterine irritability via tocometry with soft resting tone. She rates pain 6/10 on a pain scale. Upon examination not focal abdominal tenderness noted. Pt denies urinary symptoms. SVE thick, closed, and posterior. The patient found the examination to be very painful with yeast noted on exam glove. AFFIRM collected. IV fluid bolus of 1L LR ordered to be given over 1 hour. Difficult IV start and patient states she will consume an increased amount of fluid PO which she was able to do with ease and during her stay. Her contraction pattern decreased and repeat SVE 2 hours later unchanged. Again, large amount of yeast noted on exam glove. Patient given 150mg PO Diflucan x 1 and instructed to f/u in the office in 1-2 days. Will send extended course of diflucan PRN. Urine culture negative. Throughout the duration of her stay in triage the patient's contraction frequency has decreased and her pain as begun to subside. She strongly desires to be released home. Pt released home with precautions. Dx: False labor <37.0wks gestation Abdominal pain complicating Vulvovaginal rajeev 35 week gestation Abdominal scar from previous surgery Procedure: NST - reactive. Baseline 130, moderate variability, + accels, no decels. FHR Category I tracing. UA negative and culture not indicated. AFFIRM collected - pending.
== END 2018-12-12 23:45 | disposition home or self-care (01) ==
LOC: WFO 19:14 → FBP 19:15 → WFO 23:45
PROVIDERS: ATTEND Nurse Practitioner Obstetrics & Gynecology
DX: O47.03 False labor before 37 completed weeks of gestation, third trimester (principal); Z3A.35 35 weeks gestation of pregnancy; O98.813 Other maternal infectious and parasitic diseases complicating pregnancy, third trimester; B37.3 Candidiasis of vulva and vagina
CPT/HCPCS: 81001; A9270; J7120; 87086; 99214

== ENCOUNTER 2019-01-04 17:16 | Inpatient (IN) | payer MEDICAID ==
[2019-01-04] MEDS ORDERED: ONDANSETRON 4 MG/2 ML VIAL IVP PRN ×2 (18:08→20:08)
[2019-01-04] MEDS ORDERED: SODIUM CHLORIDE FLUSH 0.9% 10 ML SYRINGE IVP PRN (18:08)
[2019-01-04] MEDS ORDERED: DINOPROSTONE 10 MG SUPP VG ONE (18:08)
--- NOTE | 2019-01-04 18:14 | PROVIDER PROGRESS NOTE ---
Subjective - Subjective Subjective: Pt presented to [facility] at approximately 1730 on 01/01/2019 with c/o abdominal cramping and difficulty monitoring uterine contractions via tocometry secondary to patient movements secondary to increased discomfort. SVE 1/thick/high. Pain declines to be released home secondary to significant discomfort. Will order ultrasound to r/o placental abruption. Will admit for management of pain and augmentation of labor with cervadil to leave in place x 12 hours. Will repeat SVE in 12 hours and consider change to BC misoprostol at that time vs pitocin for continued augmentation of labor.
[2019-01-04] MEDS ORDERED: SODIUM CHLORIDE FLUSH 0.9% 10 ML SYRINGE ONE (18:20)
[2019-01-04] MEDS ORDERED: LACTATED RINGERS 1,000 ML IV ONE (18:20)
[2019-01-04] MEDS: LACTATED RINGERS 1,000 ML IV SCH ×2 (18:30→20:57)
[2019-01-04 18:37] LABS: BASOPHILS % (AUTO) 0.4 %; EOSINOPHILS # (AUTO) 0.2 10^3/uL (0.0-0.7); EOSINOPHILS % (AUTO) 2.1 %; HGB - HEMOGLOBIN 12.6 g/dL (12.0-16.0); LYMPHOCYTES # (AUTO) 2.4 10^3/uL (1.5-3.5); LYMPHOCYTES % (AUTO) 20.5 %; MEAN CORPUSCULAR HGB CONC 33.2 g/dL (32.0-36.0); MEAN CORPUSCULAR VOLUME 93.5 fL (81.0-99.0); MEAN PLATELET VOLUME 7.7 fL (7.9-10.8); MONOCYTES # (AUTO) 1.1 10^3/uL (0.0-1.0); MONOCYTES % (AUTO) 9.9 %; NEUTROPHILS # (AUTO) 7.7 10^3/uL (1.5-6.6); NEUTROPHILS % (AUTO) 67.1 %; PLT - PLATELET COUNT 273 10^3/uL (130-450); RED BLOOD COUNT 4.06 10^6/uL (4.20-5.40); RED CELL DISTRIBUTION WIDTH 14.6 % (12.0-15.0); WHITE BLOOD COUNT 11.5 x10^3/uL (4.8-10.8)
[2019-01-04] MEDS ORDERED: BUPIVACAINE 0.25% PF 10 ML VIAL ONE (19:31)
[2019-01-04] MEDS ORDERED: fent/BUPIV 2 MCG/0.125% 250 ML EP ONE (19:31)
--- NOTE | 2019-01-04 19:31 | ANESTHESIA ---
Pre-Anesthesia VS, & Labs - Diagnosis Active labor - Procedure vaginal delivery Height 5 ft 5 in Body Mass Index 31.9 - NPO Other (clear liquids) Last Food Intake: 1700 - Is Patient ?: Yes - Lab Results Current Lab Results: Laboratory Tests 01/04/19 18:25: WBC 11.5 H, RBC 4.06 L, Hgb 12.6, Hct 37.9, MCV 93.5, MCH 31.0, MCHC 33.2, RDW 14.6, Plt Count 273, MPV 7.7 L, Neut # (Auto) 7.7 H, Lymph # (Auto) 2.4, [place] # (Auto) 1.1 H, Eos # (Auto) 0.2, Baso # (Auto) 0.0, Absolute Nucleated RBC 0.00, Nucleated RBC % 0.0 Fish Bones: 01/04/19 18:25 Home Medications and Allergies Active Medications Lactated Ringer's (Lr) 1,000 mls @ 100 mls/hr IV .Q10H MARY JANE Last Admin: 01/04/19 18:30 Dose: 100 mls/hr Ondansetron HCl (Zofran Inj) 4 mg IVP Q4HR PRN PRN Reason: Nausea / Vomiting Last Admin: 01/04/19 18:50 Dose: 4 mg Sodium Chloride (Normal Saline Flush 0.9%) 10 ml IVP 0100,0900,1700 MARY JANE Sodium Chloride (Normal Saline Flush 0.9%) 10 ml IVP PRN PRN PRN Reason: NEEDED PER PROVIDER ORDERS Pnv No.122/Iron/Folic Acid [ Multi Tablet] 1 tab PO DAILY 11/12/18 Allergies/Adverse Reactions: Allergies Allergy/AdvReac Type Severity Reaction Status Date / Time No Known Drug Allergies Allergy Verified 11/12/18 16:53 Anes History & Medical History - Anesthetic History Anesthesia Complications: reports: No previous complications - Medical History Cardiovascular: reports: None, Other (RLS) Pulmonary: reports: None Gastrointestinal: reports: GERD (during ), Other Urinary: reports: None Neuro: reports: None Musculoskeletal: reports: None Endocrine/Autoimmune: reports: None Blood Disorders: reports: None Skin: reports: None Smoking Status: Never smoker Psychosocial: reports: Depression, Anxiety, Other (ptsd) - Surgical History General: Bowel surgery Eyes Ears Nose Throat (EENT): Tonsil/Adenoidectomy - Obstetrical History : 1 Parity: 0 Exam General: Alert, Oriented x3, Cooperative, No acute distress Dental: WNL Mouth Openin Fingerbreadth Neck Mobility: Normal Mallampati classification: I Respiratory: Lungs clear, Normal breath sounds, No respiratory distress, No accessory muscle use Cardiovascular: Regular rate, Normal S1, Normal S2, No murmurs Mental/Cognitive Status: Alert/Oriented X3, Normal for patient Plan Anesthesia Type: Epidural Consent for Procedure(s) Verified and Reviewed: Yes Code Status: Attempt Resuscitation ASA classification: 2-Mild systemic disease Is this case an emergency?: No
[2019-01-04] MEDS ORDERED: fent/BUPIV 2 MCG/0.125% 250 ML EP PRN (20:08)
[2019-01-04] MEDS ORDERED: NALOXONE 0.4 MG/ML VIAL IVP PRN (20:08)
[2019-01-04] MEDS ORDERED: LACTATED RINGERS 500 ML IV SCH (20:08)
[2019-01-04] MEDS ORDERED: ePHEDrine 50 MG/ML VIAL IVP PRN (20:08)
--- NOTE | 2019-01-04 21:14 | Ultrasound Report ---
Reason: abdominal pain in Procedure Date: 01/04/2019 Accession Number: [id number] / [id number] Procedure: US - OB Limited CPT Code: FULL RESULT: EXAM: LIMITED OBSTETRICAL ULTRASOUND EXAM DATE: 01/04/2019 06:50 PM. CLINICAL HISTORY: Abdominal pain in . COMPARISON: None. TECHNIQUE: Real-time sonographic evaluation of the fetus performed by the assistant family teacher. Multiple senior account representative static images were saved for review. DATING: Established EGA 39 weeks 0 days with DIAMANTE 01/11/2019. GENERAL EVALUATION [place] . Cardiac activity: 163 bpm. movement: Visualized. Presentation: Cephalic. Placenta: Posterofundal position. No evidence of abruption. Amniotic fluid: Normal. TANMAY 9.2 cm. MVP 3.8 cm. ANATOMY Grossly unremarkable. MATERNAL STRUCTURES Unremarkable. Cervix not seen. IMPRESSION: 1. [place] live intrauterine with gestational age 39 weeks 0 days based on established DIAMANTE. 2. Normal heart rate, normal fluid. RADIA
[2019-01-05] MEDS: LACTATED RINGERS 1,000 ML IV SCH ×3 (02:14→21:41)
[2019-01-05] MEDS: NALBUPHINE 10 MG/ML AMP IVP PRN ×2 (05:54→13:18)
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
[2019-01-05] MEDS: ACETAMINOPHEN 325 MG TABLET PO PRN (09:17)
[2019-01-05] MEDS: miSOPROStol 100 MCG TABLET BC SCH ×3 (09:18→17:27)
[2019-01-05] MEDS: diphenhydrAMINE INJ 50 MG/ML VIAL IVP PRN ×2 (09:37→20:14)
[2019-01-05] MEDS ORDERED: DINOPROSTONE 10 MG SUPP VG SCH (21:00)
[2019-01-06] MEDS: diphenhydrAMINE INJ 50 MG/ML VIAL IVP PRN (04:00)
[2019-01-06] MEDS: LACTATED RINGERS 1,000 ML IV SCH (07:00)
--- NOTE | 2019-01-06 08:04 | PROVIDER PROGRESS NOTE ---
Objective - Vital Signs/Intake & Output Intake & Output: Intake & Output 01/03/19 01/04/19 01/05/19 01/06/19 23:59 23:59 23:59 23:59 Intake Total 245 2473.333 931.667 Output Total 400 0836 7689 Balance -155 -1801.667 -1968.333 - Lab Results Fish Bones: 01/04/19 18:25
--- NOTE | 2019-01-06 08:13 | PROVIDER PROGRESS NOTE ---
Labor Progress Note - Uterine Monitoring Uterine Monitoring Mode: positive: External toco Contraction Frequency (min/apart): 3-8 Contraction Intensity: positive: Moderate Uterine Resting Tone: positive: Soft - Monitoring Monitor Mode: positive: External ultrasound Heart Rate Baseline: 140 Heart Rate Variability: positive: Moderate (6-25 bmp) Accelerations: positive: Present, 15x15 Decelerations: positive: None Strip Review: positive: Category I - Vaginal Exam Dilation (in cm): 2 Effacement (%): 75 Station: -2 Cervical Position: Posterior - Labor Progress Note Labor Progress Note/Additional Text: S: Resting comfortably in bed with epidural on left side. She reports discomfort from hemorrhoids but otherwise has been unable to feel contractions. She reports continued "nervousness" but overall feels she is handling things well. Her fiance is supportive at the bedside. O: FHR baseline 140s, moderate variability, + accels, no decels Contractions palpate moderate every 2-8 minutes with soft resting tone. SVE 2/75/-2, posterior, medium consistency, vertex, BOWI A: 23yo @ 39.2wks gestation by LMP GBS neg Category I FHR tracing Cervadil removed Palmer bulb in place @ 0800 on 01/06/2019 with 60cc intrauterine lumen and 40cc vaginal lumen. Anxiety P: Leave palmer blub in place attached to patient's leg with gentle traction applied. Initiate misoprostol 50mcg q4 hrs to begin at 1200. Continuous monitoring Switch IV fluids to D5LR secondary to patient has epidural for extended period of time and is NPO. Plan AROM and pitocin when palmer bulb falls out. Reviewed plan of care with Dr. Bhakta, special education resource room teacher physician who is in agreement. Patient, fiance, and labor RN present for above discussion and agree to above plan. They deny further questions or concerns at this time.
[2019-01-06] MEDS ORDERED: DEXTROSE 5%-LACTATED RINGERS 1,000 ML IV SCH (09:00)
[2019-01-06] MEDS ORDERED: fentaNYL 100 MCG/2 ML VIAL ONE ×2 (09:36→14:52)
[2019-01-06] MEDS ORDERED: ROPIVACAINE 0.2% PF 20 ML AMPULE ONE (09:36)
[2019-01-06] MEDS: miSOPROStol 100 MCG TABLET BC SCH (12:20)
[2019-01-06] MEDS ORDERED: SODIUM CHLORIDE 0.9% 10 ML ONE (14:53)
--- NOTE | 2019-01-06 15:03 | ANESTHESIA PROCEDURE NOTE ---
Anesthesia Epidural Template - Exam Epidural Medication Information: Epidural Medications Medication bupivacaine 0.125% Continuous Infusion Rate (mL/ 10 hr) Epidural infusion rate changed. see note - Plan Plan: positive: Other (see comments) - Other Comments Other Comments: Called to evaluate epidural. Patient reports pain 8/10 with contractions. Changed pump setting to 8ml bolus every 20 mins for a max of 26ml/hr. Patient has probable tachyphylaxis due to length of epidural placement. She will require a new epidural placement on 12/28 at 1700 to prevent infection. Epidural bolused with 100mcg fentanyl in 8ml PF NS. She reported her pain at 5/10 after boluses. Will continue to monitor.
[2019-01-06] MEDS ORDERED: fent/BUPIV 2 MCG/0.125% 250 ML EP PRN ×2 (15:08→15:43)
[2019-01-06] MEDS ORDERED: OXYTOCIN/SODIUM CHLORIDE 500 ML IV SCH (17:20)
--- NOTE | 2019-01-06 17:20 | PROVIDER PROGRESS NOTE ---
Labor Progress Note - Uterine Monitoring Uterine Monitoring Mode: positive: External toco Contraction Frequency (min/apart): 4 Contraction Intensity: positive: Strong Uterine Resting Tone: positive: Soft - Monitoring Monitor Mode: positive: External ultrasound Heart Rate Baseline: 130 Heart Rate Variability: positive: Moderate (6-25 bmp) Accelerations: positive: Present, 15x15 Decelerations: positive: Variable Strip Review: positive: Category I - Vaginal Exam Dilation (in cm): 10 Effacement (%): 100 Station: 2 - Labor Progress Note Labor Progress Note/Additional Text: S: Laying in bed comfortable with epidural. Anxious but very excited that she is complete. Fiance and mom are supportive at the bedside. O: FHR baseline 130s, moderate variability. + accels, occasional variable deceleration. Contractions palpate strong every 4 minutes with soft resting tone. SVE c/c/+2, vertex A: 23yo @ 39.3wks gestation by LMP Active labor GBS negative s/p cervadil x 2 total doses, misoprostol x2 total doses yesterday and 1 total dose today. Boucher bulb spontaneously expelled at 1600. AROM @ 0900 01/06/2019 P: Initiate pitocin to regulate contraction pattern for effective contractions with maternal pushing effort. Anticipate spontaneous vaginal delivery.
[2019-01-06] MEDS ORDERED: LACTATED RINGERS 0 ML IV ONE (17:50)
[2019-01-06] MEDS ORDERED: LIDOCAINE-MPF 1% 30 ML VIAL ONE (18:12)
[2019-01-06] MEDS ORDERED: WITCH HAZEL/GLYCERIN 1 EACH MED..PAD TOP PRN (18:36)
[2019-01-06] MEDS ORDERED: LIDOCAINE 1% 50 ML MDV TD ONE (18:38)
[2019-01-06] MEDS ORDERED: LIDOCAINE-MPF 1% 30 ML VIAL TD ONE (19:00)
--- NOTE | 2019-01-06 19:04 | DELIVERY NOTE ---
Delivery Note - Labor Labor: positive: Other - Infant Delivery Method Delivery Method: positive: Spontaneous vaginal delivery - Cervical Ripening Method Cervical Ripening Method: positive: Balloon device, Misoprostil, Prostaglandin E2 - Presentation Presentation: positive: Vertex, MORENO - right occiput anterior - Nuchal Cord Nuchal Cord: positive: None - Amniotic Fluid Description Amniotic Fluid Description: positive: Clear - Episiotomy Type Episiotomy Type: positive: None - Laceration Laceration: positive: 1st degree, Labial, Sulcus, Vaginal - Suture Suture Type: positive: Vicryl Suture Size: positive: 2-0 - Delivery Outcome Delivery Outcome: positive: Livebirth - : positive: Placed in direct skin contact with mother, Stimulated, Warmed, [place] used [place] sex: positive: Male - Cord Cord: positive: 3 vessels - Placenta Placenta: positive: Intact, Spontaneous - Estimated Blood Loss Estimated Blood Loss (in cc): 250 - Post Delivery Events Post Delivery Events: positive: No post delivery events - Delivery Comments (Free Text/Narrative) Delivery Comments (Free Text/Narrative): Labor: This 23yo @ 39.3wks gestation by LMP presented on 01/04/2019 at 1734 with complaints of abdominal pain which required placement of early epidura l for management. A STAT ultrasound was ordered to r/o placental abruption secondary to the degree of her discomfort and was unremarkable without evidence of abruption. Her cervix was noted to be 1/thick/high, posterior, vertex. FHR pattern demonstrated Category I tracing throughout labor with intermittent periods of occasional variable decelerations which resolved; overall reassuring. Cervadil was placed vaginally x 12 hours followed by misoprostol 50mcg q 4 hours x 2 total doses. A second cervadil was placed following 01/05/19 at [address] x 9 hours. AROM occurred at 0910 and was noted to be a moderate amount of clear fluid. Cervadil was removed and palmer bulb was placed at 0800 01/06/2019. Misoprostol administered x 2 doses. The palmer blub was spontaneously expelled at 1600. She progressed to c/c/+2 at 1700. Normal of viable male at 1754 in MORENO position. Lose shoulder cord noted and baby delivered through without difficulty. 's 7/9 at 1 and 5 min respectively. The was placed on maternal abdomen, stimulated, dried, and placed skin to skin. The umbilical cord was allowed to stop pulsating at which time it was doubly clamped by CNM and cut by FOB. Cord blood was obtained. Pitocin administered via IV for adequate hemostasis. Placenta delivered spontaneously and intact at 1756. 3VC. EBL 250mL. Uterine fundus firm and there is no excessive bleeding. The perineum, vagina, and cervix were inspected and found to have first degree bilateral vaginal sulcus lacerations and a 1st degree left labial lacerations which were repaired using 2-[address]-1 needle in standard fashion under sterile conditions. Tissues well approximated. skin to skin with mother. Family bonding well. Both mother and baby were left in stable conditions.
[2019-01-06] MEDS: IBUPROFEN 800 MG TABLET PO SCH (20:35)
[2019-01-06] MEDS: DOCUSATE SODIUM 100 MG CAPSULE PO SCH (20:36)
[2019-01-06] MEDS: ACETAMINOPHEN 325 MG TABLET PO PRN (20:36)
[2019-01-07] MEDS: HYDROCORTISONE 1% CREAM 28 GM TUBE TOP SCH ×4 (00:16→16:56)
[2019-01-07] MEDS: ACETAMINOPHEN 325 MG TABLET PO PRN ×5 (00:20→22:15)
[2019-01-07] MEDS: SERTRALINE 50 MG TABLET PO SCH ×3 (01:50→15:43)
[2019-01-07] MEDS: IBUPROFEN 800 MG TABLET PO SCH ×3 (03:56→16:55)
--- NOTE | 2019-01-07 06:52 | PROVIDER PROGRESS NOTE ---
Subjective - Subjective Subjective: S: Bonding well with baby. without difficulty. Pain well controlled with oral medications. Reports some soreness to her perineum but has been ambulating without difficulty and reports improvement with ice and oral pain medications. Her mood is good and she declines initiation of sertraline last night but does desire to begin taking this morning. Bleeding light. supportive at the bedside. O: Heart RRR w/o M/G/R, lungs CTAB, abdomen soft and nontender with fundus firm at U. Bilateral LE's no edema. A: 23yo -->P1 PPD #1 s/p TSVD of viable male infant 1st degree perineal laceration - intact P: Continue routine care and medications. Evaluate for discharge home tomorrow. Objective - Vital Signs/Intake & Output Vital Signs: Vital Signs x48h Temp Pulse Resp BP Pulse Ox 01/07/19 03:56 36.8 C 62 18 98/59 L 98 Intake & Output: Intake & Output 01/04/19 01/05/19 01/06/19 01/07/19 23:59 23:59 23:59 23:59 Intake Total 245 2473.333 4911.667 Output Total 400 3235 7200 Balance -155 -2501.667 -2338.333 - Lab Results Fish Bones: 01/04/19 18:25
[2019-01-07] MEDS: DOCUSATE SODIUM 100 MG CAPSULE PO SCH ×2 (08:52→20:09)
[2019-01-07] MEDS: SODIUM CHLORIDE FLUSH 0.9% 10 ML SYRINGE IVP SCH ×6 (15:45→17:29)
--- NOTE | 2019-01-07 16:59 | ANESTHESIA POST OP EVALUATION ---
Anesthesia Post Eval - Post Anesthesia Eval CV Function Including HR & BP: positive: Stable : : : Pain Control: positive: Adequate Nausea & Vomiting: positive: Negative : Mental Status: positive: Appropriate Anesthesia Complications: positive: None - Other Details/Therapies Other Details/Therapies: No complications from epidural. Patient reports good pain control for labor and delivery.
[2019-01-08] MEDS: IBUPROFEN 800 MG TABLET PO SCH ×4 (01:12→18:06)
[2019-01-08] MEDS: ACETAMINOPHEN 325 MG TABLET PO PRN ×2 (08:49→15:42)
[2019-01-08] MEDS: DOCUSATE SODIUM 100 MG CAPSULE PO SCH (08:53)
--- NOTE | 2019-01-08 10:47 | Discharge Plan ---
Discharge Plan Disposition: 01 Home, Self Care Condition: Good Diet: Regular Activity Restrictions: No Restrictions Shower Restrictions: No Driving Restrictions: No Weight Bearing: Full Weight No Smoking: If you smoke, Please STOP! Call for help. Follow-up with: Lala You CNM, ARNP [Provider Admit Priv/Credential] -
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
[2019-01-08] MEDS: SERTRALINE 50 MG TABLET PO SCH (11:14)
[2019-01-08 15:48] VITALS: BP 118/76
--- NOTE | 2019-01-08 16:09 | DISCHARGE SUMMARY ---
Physician: OLINDA Peres DATE OF ADMISSION: 01/04/2019 DATE OF DISCHARGE: DIAGNOSES ON ADMISSION 1. A 23-year-old G2, P0-0-1-0, at 39.1 weeks' gestation. 2. Group B streptococcus negative. 3. Early labor. DIAGNOSES ON DISCHARGE 1. A 23-year-old G2, P1-0-1-1, status post spontaneous vaginal delivery on 01/06/2019. 2. Normal recovery. 3. . HISTORY OF PRESENT ILLNESS: She is a patient of [facility] who presented on 01/05/20 19 with complaints of abdominal pain, which required placement of early epidural for management. A s tat ultrasound was ordered to rule out placental abruption secondary to degree of her discomfort and was unremarkable without evidence of placental abruption. Her cervix was noted to be 1 cm dilated, t hick and high in a posterior position and fetus was vertex. An early epidural was placed secondary t o patient discomfort and adequate pain management was achieved. She received pre-induction cervical ripening with Cervidil x2 and misoprostol x3. A Boucher bulb was also used to facilitate cervical ripe marlena. She progressed to spontaneously deliver a viable male at 1754 on 01/06/2019. Apgars we re 7 and 9 at 1 and 5 minutes respectively. EBL was 250 mL. She was noted to have a second-degree p erineal laceration, which was repaired using a 2-[address]-1 needle in standard fashion under sterile conditions. She has been doing well in her course. She is ambulating and tolerating a regular diet. She is urinating without difficulty and her lochia is normal. Her pain is well controlled with oral medications. She is without difficulty. She has been seen by [employer] who inte nd to see her again today prior to her discharge and will set her up with community-based resources i ncluding outpatient counseling and home visits with a public health nurse. She has been given instru ctions to continue her vitamin while and to take 800 mg p.o. ibuprofen q. 8 ho urs p.r.n. pain. She intends to follow up with myself at [facility] in 1 week for a support visit and in 3 weeks for a routine visit. She has been given precaution s to call if she has any worsening fevers, chills, abdominal pain, increased bleeding or foul-smellin g vaginal lochia. TD: 01/08/2019 11:07
== END 2019-01-08 18:30 | disposition home or self-care (01) | DRG 806 ==
LOC: WFO 17:16 → FBP 17:19 → WFO 18:07 → FBP 18:08
PROVIDERS: ADMIT Nurse Practitioner Obstetrics & Gynecology; ATTEND Nurse Practitioner Obstetrics & Gynecology
PROC: 10E0XZZ Delivery of Products of Conception, External Approach (ICD-10-PCS; principal; 2019-01-06)
PROC: 0HQ9XZZ Repair Perineum Skin, External Approach (ICD-10-PCS; 2019-01-06)
PROC: 10907ZC Drainage of Amniotic Fluid, Therapeutic from Products of Conception, Via Natural or Artificial Opening (ICD-10-PCS; 2019-01-06)
DX: O99.344 Other mental disorders complicating childbirth (principal); O99.324 Drug use complicating childbirth; Z37.0 Single live birth; F41.9 Anxiety disorder, unspecified; F12.90 Cannabis use, unspecified, uncomplicated; O70.0 First degree perineal laceration during delivery; O69.89X0 Labor and delivery complicated by other cord complications, not applicable or unspecified; Z3A.39 39 weeks gestation of pregnancy; Z87.891 Personal history of nicotine dependence
CPT/HCPCS: 76815; 85025; 99213; A9270; J1200; J2300; J7120

== ENCOUNTER 2019-01-22 10:02 | Day surgery (SDC) | payer MEDICAID ==
[2019-01-22 11:58] LABS: BASOPHILS # (AUTO) 0.1 10^3/uL (0.0-0.1); BASOPHILS % (AUTO) 0.5 %; EOSINOPHILS # (AUTO) 0.6 10^3/uL (0.0-0.7); EOSINOPHILS % (AUTO) 4.7 %; HGB - HEMOGLOBIN 15.1 g/dL (12.0-16.0); LYMPHOCYTES % (AUTO) 24.2 %; MEAN CORPUSCULAR HEMOGLOBIN 30.8 pg (27.0-31.0); MEAN CORPUSCULAR HGB CONC 32.6 g/dL (32.0-36.0); MEAN CORPUSCULAR VOLUME 94.4 fL (81.0-99.0); MEAN PLATELET VOLUME 8.3 fL (7.9-10.8); MONOCYTES # (AUTO) 0.7 10^3/uL (0.0-1.0); MONOCYTES % (AUTO) 5.9 %; NEUTROPHILS % (AUTO) 64.7 %; PLT - PLATELET COUNT 325 10^3/uL (130-450); RED BLOOD COUNT 4.92 10^6/uL (4.20-5.40); RED CELL DISTRIBUTION WIDTH 13.6 % (12.0-15.0); WHITE BLOOD COUNT 12.4 x10^3/uL (4.8-10.8)
[2019-01-22 12:12] LABS: ALBUMIN 3.6 g/dL (3.2-5.5); BILIRUBIN,TOTAL 0.4 mg/dL (0.2-1.0); CALCIUM 10.2 mg/dL (8.5-10.3); CREATININE 0.5 mg/dL (0.4-1.0); TOTAL PROTEIN 7.1 g/dL (6.7-8.2)
[2019-01-22] MEDS ORDERED: KETOROLAC 30 MG/ML VIAL IVP STA (12:20)
--- NOTE | 2019-01-22 12:22 | ED Physician Documentation ---
PD HPI ABD PAIN - Stated complaint Stated Complaint: ABD SCAR PX - Chief complaint Chief Complaint: Abd Pain - History obtained from History obtained from: Patient - History of Present Illness Timing - onset: Other (23-year-old 2 weeks from an uncomplicated and vaginal delivery. Her regional director was Lala You. At 36 hours of age she had surgery for an appendectomy. While she had some pain in the scar. But she was doing well until about 3 days ago and now is waxing and waning but fairly constant right lower quadrant abdominal pain. She still has bloody lochia but it is decreasing. She denies fevers, chills, nausea or vomiting. She is constipated, having about BM every 2 days or so.) Review of Systems Ten Systems: 10 systems reviewed and negative Constitutional: reports: Reviewed and negative Throat: reports: Reviewed and negative Cardiac: reports: Reviewed and negative Respiratory: reports: Reviewed and negative PD PAST MEDICAL HISTORY - Past Medical History Cardiovascular: None, Other (RLS) Respiratory: None Neuro: None Endocrine/Autoimmune: None GI: GERD (during ), Other : None Psych: Anxiety, ADD/ADHD Musculoskeletal: None Derm: None - Past Surgical History Past Surgical History: Yes General: Bowel surgery HEENT: Tonsil/Adenoidectomy - Present Medications Home Medications: Ambulatory Orders Medication Instructions Recorded Confirmed Acetaminophen [Tylenol Extra 1,000 mg PO Q4HR PRN 01/22/19 01/22/19 Strength] Ibuprofen 800 mg PO Q8HR PRN 01/22/19 01/22/19 Sertraline HCl 100 mg PO DAILY 01/22/19 01/22/19 - Allergies Allergies/Adverse Reactions: Allergies Allergy/AdvReac Type Severity Reaction Status Date / Time No Known Drug Allergies Allergy Verified 01/22/19 10:34 - Social History Does the pt smoke?: No Smoking Status: Former smoker Does the pt drink ETOH?: No Does the pt have substance abuse?: No - Family History Family history: reports: Non contributory - Immunizations Immunizations are current?: Yes - POLST Patient has POLST: No PD ED PE NORMAL - Vitals Vital signs reviewed: Yes - General General: Alert and oriented X 3, No acute distress - HEENT HEENT: PERRL, EOMI - Neck Neck: Supple, no meningeal sign, No bony TTP - Cardiac Cardiac: RRR, No murmur - Respiratory Respiratory: No respiratory distress, Clear bilaterally - Abdomen Abdomen: Other (There is a large right mid abdomen abdominal scar, horizontal. She is severely tender in the lower abdomen and right lower quadrant with guarding and rebound tenderness.) - Female Female : Animal Shelter Manager present (Sylvia mann), Other (Modest mucus in the lochia, quite tender on right bimanual exam.) - Back Back: No CVA TTP, No spinal TTP - Derm Derm: Normal color, Warm and dry - Extremities Extremities: No edema, No calf tenderness / cord - Neuro Neuro: Alert and oriented X 3, Normal speech - Psych Psych: Normal mood, Normal affect Results - Vitals Vitals: Vital Signs - 24 hr 01/22/19 01/22/19 01/22/19 10:29 12:13 14:37 Temperature 36.3 C L 36.9 C 36.9 C Heart Rate 82 85 58 L Respiratory 14 16 16 Rate Blood Pressure 131/86 H 126/91 H 105/69 O2 Saturation 99 98 98 Oxygen O2 Source Room air - Labs Labs: Laboratory Tests 01/22/19 01/22/19 01/22/19 11:48 11:48 12:08 WBC 12.4 H RBC 4.92 Hgb 15.1 Hct 46.5 MCV 94.4 MCH 30.8 MCHC 32.6 RDW 13.6 Plt Count 325 MPV 8.3 Neut # (Auto) 8.0 H Lymph # (Auto) 3.0 [place] # (Auto) 0.7 Eos # (Auto) 0.6 Baso # (Auto) 0.1 Absolute Nucleated RBC 0.01 Nucleated RBC % 0.0 Sodium 135 Potassium 3.6 Chloride 101 Carbon Dioxide 25 Anion Gap 9.0 BUN 10 Creatinine 0.5 Estimated GFR (MDRD) 150 Glucose 99 Calcium 10.2 Total Bilirubin 0.4 AST 27 ALT 42 Alkaline Phosphatase 97 Total Protein 7.1 Albumin 3.6 Globulin 3.5 Albumin/Globulin Ratio 1.0 Lipase 26 Urine Color YELLOW Urine Clarity CLEAR Urine pH 6.5 Ur Specific [place] <=1.005 Urine Protein NEGATIVE Urine Glucose (UA) NEGATIVE Urine Ketones NEGATIVE Urine Occult Blood SMALL H Urine Nitrite NEGATIVE Urine Bilirubin NEGATIVE Urine Urobilinogen 0.2 (NORMAL) Ur Leukocyte Esterase NEGATIVE Urine RBC 0-5 Urine WBC 0-3 Ur Squamous Epith Cells FEW Squamous Urine Bacteria Few Ur Microscopic Review INDICATED Urine Culture Comments NOT INDICATED - Rads (name of study) CT A/P Radiology: EMP read contemporaneously (Rim-enhancing hypodense Lesion in the right pelvis measuring 5 x 3 cm, radiologist feels it could be ovarian cyst, salpingitis or appendicitis noting that she does not have an appendix.) PD MEDICAL DECISION MAKING - ED course ED course: 23-year-old woman 2 weeks presents with slight right lower quadrant pain and quite tender on examination CT showed a fluid collection, not quite clear what it represented. Spoke with Dr. Castillo, the on-call OB who requested an ultrasound and after she reviewed this plans to take her to the OR for diagnostic laparoscopy. Departure - Departure Disposition: ED Transfer to [facility] Clinical Impression: RLQ abdominal mass Abdominal pain Qualifiers: Abdominal location: right lower quadrant Qualified Code(s): R10.31 - Right lower quadrant pain Condition: Stable
[2019-01-22 12:29] LABS: BILIRUBIN,URINE NEGATIVE (NEGATIVE); CLARITY,URINE CLEAR (CLEAR); GLUCOSE, URINE (UA) NEGATIVE (NEGATIVE); KETONES,URINE (UA) NEGATIVE (NEGATIVE); LEUKOCYTE ESTERASE, URINE NEGATIVE (NEGATIVE); NITRITE,URINE NEGATIVE (NEGATIVE); OCCULT BLOOD,URINE SMALL (NEGATIVE); PH,URINE 6.5 PH (5.0-7.5); PROTEIN,URINE NEGATIVE (NEGATIVE); UROBILINOGEN,URINE 0.2 (NORMAL) E.U./dL (NORMAL)
[2019-01-22 12:54] LABS: BACTERIA,URINE Few /HPF (None Seen); RBC,URINE 0-5 /HPF (0-5); SQUAMOUS EPITHELIAL CELL,UR FEW Squamous (<= Few)
[2019-01-22] MEDS ORDERED: IOVERSOL 320 100 ML VIAL IVP ONE ×2 (13:35→14:12)
--- NOTE | 2019-01-22 14:41 | CT Report ---
Reason: IV only, RLQ pain Procedure Date: 01/22/2019 Accession Number: [id number] / [id number] Procedure: CT - Abdomen/Pelvis W CPT Code: FULL RESULT: EXAM: CT ABDOMEN AND PELVIS EXAM DATE: 01/22/2019 02:07 PM. CLINICAL HISTORY: RLQ pain. COMPARISONS: Abdomen ultrasound 09/28/2017. TECHNIQUE: Routine helical CT imaging was performed through the abdomen and pelvis. IV contrast: 100 mL Optiray 320. Enteric contrast: No. Reconstructions: Coronal and sagittal. In accordance with CT protocol optimization, one or more of the following dose reduction techniques were utilized for this exam: automated exposure control, adjustment of mA and/or KV based on patient size, or use of iterative reconstructive technique. FINDINGS: Lung Bases: Unremarkable. Liver: Normal. No masses. Gallbladder/Bile Ducts: Unremarkable. Spleen: Normal. Pancreas: Normal. Adrenal Glands: Normal. Kidneys: Normal. No masses or hydronephrosis. Peritoneal Cavity/Bowel: Nonobstructive bowel gas pattern. Moderate to large following stool throughout the colon and rectum. The appendix is difficult to differentiate from multiple clustered small bowel loops in the right lower abdominal quadrant. The uterus is also mildly enlarged and there is a hypodense rim-enhancing lesion in the right adnexa, which also extends to the base of the cecum further limiting visualization of the appendix. This right adnexal hypodense lesion measures approximately 5.1 x 3.0 cm. Possible dilated fallopian tube versus dilated appendix along the anterior margin of this right adnexal lesion (image 59 of series 3). Pelvic Organs: The uterus is mildly enlarged with nonspecific fluid in the endometrial cavity. Possible normal variant arcuate uterus. The urinary bladder is unremarkable. Vasculature: No aneurysms or other significant abnormality. Bones: No acute abnormality. Other: None. IMPRESSION: The appendix is difficult to distinguish from multiple clustered small bowel loops at the base of the cecum, as well as a rim-enhancing hypodense lesion in the right adnexa, which extends to the base of the cecum, as described above. No definite inflammatory changes to the base of the cecum. Pelvis ultrasound recommended to further evaluate the possibility of a right ovarian cyst and possible salpingitis. Acute appendicitis cannot be excluded given limited visualization of the appendix. Nonobstructive bowel gas pattern. Mild uterine enlargement with nonspecific fluid in the endometrial cavity. RADIA
--- NOTE | 2019-01-22 16:30 | Ultrasound Report ---
Reason: pelvic pain, R Procedure Date: 01/22/2019 Accession Number: [id number] / [id number] Procedure: US - Pelvic w/Transvag+Doppler Comp CPT Code: FULL RESULT: EXAM: PELVIC ULTRASOUND EXAM DATE: 01/22/2019 03:50 PM. CLINICAL HISTORY: Right-sided pelvic pain. COMPARISON: CT scan of the same date.. TECHNIQUE: Realtime transabdominal pelvic scan performed to identify the uterus and adnexa and as an overview of other pelvic structures, with static image documentation. FINDINGS: Uterus: 16.5 x 4.5 x 8.4 cm, volume 465 cc. Anteverted position. Appearance suggests state. Masses: None. Endometrium: 9 mm. Fluid is seen in the endometrial canal with mild vascularity. Cervix: Unremarkable. Right Ovary: 5.2 x 3.6 x 3.5 cm, volume 33.7 cc. There is a prominent complex cyst measuring up to 3.7 cm. There is possible associated fallopian tube enlargement demonstrating vascularity. Left Ovary: 2.2 x 1.2 x 2.7 cm, volume 3.8 cc. Normal echotexture and blood flow. Free Fluid: None. Other: None. IMPRESSION: 1. uterus, with prominent right ovarian complex cyst measuring up to 3.7 cm with likely associated fallopian tube prominence demonstrating vascularity. Given increased vascularity, infection should be considered. No obvious free fluid seen in the pelvic cul-de-sac. RADIA
[2019-01-22] MEDS ORDERED: fentaNYL 100 MCG/2 ML VIAL IVP ONE (16:41)
--- NOTE | 2019-01-22 17:08 | ANESTHESIA ---
Pre-Anesthesia VS, & Labs - Diagnosis right pelvic pain - Procedure diagnostic laparoscopy Vital Signs: Temp Pulse Resp BP Pulse Ox 36.9 C 87 16 122/90 H 100 01/22/19 14:37 01/22/19 16:54 01/22/19 16:54 01/22/19 16:54 01/22/19 16:54 Height 5 ft 5 in Weight (kg) 77.564 kg Body Mass Index 28.4 - NPO Last Fluid Intake: 1200 mekhi tea - Is Patient ?: No (Post 2.5 weeks) - Lab Results Current Lab Results: Laboratory Tests 01/22/19 11:48: Sodium 135, Potassium 3.6, Chloride 101, Carbon Dioxide 25, Anion Gap 9.0, BUN 10, Creatinine 0.5, Estimated GFR (MDRD) 150, Glucose 99, Calcium 10.2, Total Bilirubin 0.4, AST 27, ALT 42, Alkaline Phosphatase 97, Total Protein 7.1, Albumin 3.6, Globulin 3.5, Albumin/Globulin Ratio 1.0, Lipase 26 01/22/19 11:48: WBC 12.4 H, RBC 4.92, Hgb 15.1, Hct 46.5, MCV 94.4, MCH 30.8, MCHC 32.6, RDW 13.6, Plt Count 325, MPV 8.3, Neut # (Auto) 8.0 H, Lymph # (Auto) 3.0, [place] # (Auto) 0.7, Eos # (Auto) 0.6, Baso # (Auto) 0.1, Absolute Nucleated RBC 0.01, Nucleated RBC % 0.0 Fish Bones: 01/22/19 11:48 01/22/19 11:48 Home Medications and Allergies Home Medications: Ambulatory Orders Acetaminophen [Tylenol Extra Strength] 1,000 mg PO Q4HR PRN 01/22/19 Ibuprofen 800 mg PO Q8HR PRN 01/22/19 Sertraline HCl 100 mg PO DAILY 01/22/19 Acetaminophen [Tylenol Extra Strength] 1,000 mg PO Q4HR PRN 01/22/19 Ibuprofen 800 mg PO Q8HR PRN 01/22/19 Sertraline HCl 100 mg PO DAILY 01/22/19 Allergies/Adverse Reactions: Allergies Allergy/AdvReac Type Severity Reaction Status Date / Time No Known Drug Allergies Allergy Verified 01/22/19 10:34 Anes History & Medical History - Anesthetic History Anesthesia Complications: reports: No previous complications - Medical History Cardiovascular: reports: None, Other (RLS) Pulmonary: reports: None Gastrointestinal: reports: GERD (during ), Other Urinary: reports: None Neuro: reports: None Musculoskeletal: reports: None Endocrine/Autoimmune: reports: None Blood Disorders: reports: None Skin: reports: None Smoking Status: Former smoker Psychosocial: reports: Depression, Anxiety - Surgical History General: Bowel surgery (as an ) Eyes Ears Nose Throat (EENT): Tonsil/Adenoidectomy Exam General: Alert, Oriented x3, Cooperative, No acute distress Dental: WNL Mouth Openin Fingerbreadth Mallampati classification: I Thyromental Distance: 4-6 cm Respiratory: Lungs clear, Normal breath sounds, No respiratory distress, No accessory muscle use Cardiovascular: Regular rate, Normal S1, Normal S2, No murmurs Mental/Cognitive Status: Alert/Oriented X3, Normal for patient Plan Anesthesia Type: General Consent for Procedure(s) Verified and Reviewed: Yes Code Status: Attempt Resuscitation ASA classification: 2-Mild systemic disease Is this case an emergency?: Yes
[2019-01-22] MEDS ORDERED: BUPIVACAINE 0.5%-EPI 1:200000 PF 30 ML VIAL ONE (17:35)
[2019-01-22] MEDS ORDERED: LACTATED RINGERS 1,000 ML IV ONE ×2 (17:39→18:55)
[2019-01-22] MEDS ORDERED: BUPIVACAINE 0.5%-EPI 1:200000 PF 30 ML VIAL SUBQ ONE ×2 (18:15)
[2019-01-22] MEDS ORDERED: SODIUM CHLORIDE 0.9% IV STA (18:22)
[2019-01-22] MEDS ORDERED: GENTAMICIN IV STA (18:22)
[2019-01-22] MEDS ORDERED: CLINDAMYCIN 600 MG/50 ML 100 ML IV ONE (18:30)
[2019-01-22] MEDS ORDERED: GLYCOPYRROLATE 1 MG/5 ML VIAL IVP ONE (19:28)
[2019-01-22] MEDS ORDERED: MIDAZOLAM 2 MG/2 ML VIAL IVP ONE (19:28)
[2019-01-22] MEDS ORDERED: HYDROmorphone 1 MG/ML SYRINGE IM ONE (19:28)
[2019-01-22] MEDS ORDERED: DEXAMETHASONE 4 MG/ML VIAL IVP ONE (19:28)
[2019-01-22] MEDS ORDERED: KETOROLAC 30 MG/ML VIAL IVP ONE (19:28)
[2019-01-22] MEDS ORDERED: ONDANSETRON 4 MG/2 ML VIAL IVP ONE (19:28)
[2019-01-22] MEDS ORDERED: PROPOFOL 200 MG/20 ML VIAL IVP ONE (19:28)
[2019-01-22] MEDS ORDERED: NEOSTIGMINE 1 MG/1 ML 10 ML MDV IVP ONE (19:28)
[2019-01-22] MEDS ORDERED: ROCURONIUM 50 MG/5 ML VIAL IVP ONE (19:28)
[2019-01-22] MEDS ORDERED: GENTAMICIN 80 MG/2 ML VIAL ONE (20:07)
[2019-01-22] MEDS ORDERED: ONDANSETRON 4 MG/2 ML VIAL IVP PRN (20:08)
[2019-01-22] MEDS ORDERED: HYDROmorphone 0.5 MG/0.5 ML SYRINGE IVP PRN (20:08)
[2019-01-22] MEDS ORDERED: SODIUM CHLORIDE FLUSH 0.9% 10 ML SYRINGE IVP PRN (20:13)
[2019-01-22] MEDS ORDERED: diphenhydrAMINE 25 MG CAPSULE PO PRN (20:13)
[2019-01-22] MEDS ORDERED: HYDROmorphone 0.5 MG/0.5 ML SYRINGE ONE (20:17)
--- NOTE | 2019-01-22 20:23 | OPERATIVE REPORT ---
Operative Report - General Procedure Date: 01/22/19 Planned Procedure: diagnostic laparoscopy Pre-Op Diagnosis: right adnexal mass, right lower quadrant pain and rebound Procedure Performed: right salpingectomy Post Op Diagnosis: abnormal right fallopian tube - Procedure Note Primary Surgeon: Anna Secondary Surgeon: francesca Anesthesia Technique: General ET tube Pathology: right fallopian tube Gram stain tube Aerobic and anaerobic cultures tube IV Fluids (mL): 1,400 Estimated Blood Loss (mL): 5 Urine Output (mL): 550 Findings: Right fallopian tube abnormal from 2cm distal to the cornua, adherent to the ovary and to the right pelvic sidewall, woody, malodorous. Organized white contents within the specimen. Complications: none
[2019-01-22] MEDS ORDERED: LACTATED RINGERS 1,000 ML IV SCH (21:00)
[2019-01-22] MEDS: ACETAMINOPHEN 500 MG TABLET PO SCH (21:16)
[2019-01-22] MEDS: DOCUSATE SODIUM 100 MG CAPSULE PO SCH (21:16)
[2019-01-22] MEDS: oxyCODONE 5 MG TABLET PO PRN (22:41)
[2019-01-23] MEDS: SODIUM CHLORIDE FLUSH 0.9% 10 ML SYRINGE IVP SCH ×2 (01:11→14:20)
[2019-01-23] MEDS: IBUPROFEN 600 MG TABLET PO SCH ×3 (01:26→14:24)
[2019-01-23] MEDS: SIMETHICONE CHEW 80 MG TABLET PO SCH ×3 (01:37→14:24)
[2019-01-23] MEDS: CLINDAMYCIN 150 MG CAPSULE PO SCH ×3 (01:53→12:19)
[2019-01-23] MEDS: MORPHINE 2 MG/ML SYRINGE IVP PRN ×2 (02:06→05:42)
[2019-01-23] MEDS: oxyCODONE 5 MG TABLET PO PRN ×2 (03:50→09:35)
[2019-01-23] MEDS: ACETAMINOPHEN 500 MG TABLET PO SCH ×2 (05:41→13:14)
[2019-01-23] MEDS: DOCUSATE SODIUM 100 MG CAPSULE PO SCH (07:58)
[2019-01-23 08:06] LABS: BASOPHILS # (AUTO) 0.1 10^3/uL (0.0-0.1); BASOPHILS % (AUTO) 0.4 %; EOSINOPHILS # (AUTO) 0.1 10^3/uL (0.0-0.7); EOSINOPHILS % (AUTO) 0.4 %; HGB - HEMOGLOBIN 12.3 g/dL (12.0-16.0); LYMPHOCYTES # (AUTO) 1.6 10^3/uL (1.5-3.5); LYMPHOCYTES % (AUTO) 11.9 %; MEAN CORPUSCULAR HEMOGLOBIN 30.9 pg (27.0-31.0); MEAN CORPUSCULAR HGB CONC 32.8 g/dL (32.0-36.0); MEAN CORPUSCULAR VOLUME 94.1 fL (81.0-99.0); MEAN PLATELET VOLUME 8.2 fL (7.9-10.8); MONOCYTES # (AUTO) 0.9 10^3/uL (0.0-1.0); MONOCYTES % (AUTO) 6.6 %; NEUTROPHILS # (AUTO) 11.1 10^3/uL (1.5-6.6); NEUTROPHILS % (AUTO) 80.7 %; PLT - PLATELET COUNT 305 10^3/uL (130-450); RED BLOOD COUNT 3.97 10^6/uL (4.20-5.40); RED CELL DISTRIBUTION WIDTH 13.3 % (12.0-15.0); WHITE BLOOD COUNT 13.8 x10^3/uL (4.8-10.8)
--- NOTE | 2019-01-23 11:25 | Discharge Plan ---
Discharge Plan Disposition: 01 Home, Self Care Condition: Good Diet: Regular Activity Restrictions: Activity as Tolerated Shower Restrictions: No Driving Restrictions: Yes (not while on narcotics) No Smoking: If you smoke, Please STOP! Call for help. Follow-up with: La Castillo MD [Provider Admit Priv/Credential] - 1 Week
[2019-01-23 16:03] VITALS: BP 102/46
--- NOTE | 2019-01-23 19:51 | PROCEDURE REPORT ---
DATE OF SERVICE: 01/22/2019 Physician: La Castillo MD PREOPERATIVE DIAGNOSES 1. Right lower quadrant pain. 2. Complex right adnexal mass. 3. Sixteen days status post spontaneous vaginal delivery. POSTOPERATIVE DIAGNOSES 1. Abnormal right fallopian tube. 2. Sixteen days status post spontaneous vaginal delivery. OPERATION: Laparoscopic right salpingectomy. SURGEON: La Castillo MD SHREDDING FLOOR EQUIPMENT OPERATOR: None. ANESTHESIA: General. ESTIMATED BLOOD LOSS: 5 mL IV FLUIDS: 1400 mL of crystalloid. URINE OUTPUT: 550 mL, clear. COUNTS: Correct x2. COMPLICATIONS: None apparent. DISPOSITION: Stable to the recovery room and will admit to extended recovery. SPECIMEN: Fallopian tube contents sent to pathology. Aerobic and anaerobic cultures were sent. Gram stain was also sent. PROPHYLAXIS: SCDs to bilateral lower extremities. Once the abnormal fallopian tube was identified, the patient received gentamicin 5 mg/kg IV once, as well as clindamycin 900 mg IV once. FINDINGS 1. Dilated and firm right fallopian tube. This started 2 cm distal to the cornua and extended down to the most distal end of the tube. Normal fimbria were not seen. The contents of the fallopian tube were solid, white, and malodorous. 2. There were some adhesions from the omentum to the anterior abdominal wall in the location of the patient's prior laparotomy scar. Otherwise, there was no adhesive disease in the abdomen or pelvis. 3. Normal-appearing uterus, ovaries, left fallopian tube, pelvic peritoneum, liver, stomach. 4. Appendix surgically absent. 5. No sigmoid or descending colon observed. This is consistent with the patient's history of bowel obstruction followed by a hemicolectomy, followed by an ileostomy and then takedown later in life. COUNSELING: Patient presented to the ER today with acute onset of colicky abdominal pain. At its worst, it is severe. At rest, it is minimal. The pain has not been associated with urinating, defecating or . She did have intermittent abdominal pain throughout her and this was deemed due to adhesive disease. She underwent an induction of labor with an early placement of epidural because of an episode of abdominal pain she had at 39 weeks gestation. An ultrasound revealed a complex right adnexal mass. She had rebound and tenderness present. She was counseled for diagnostic laparoscopy. The patient was aware that she might require appendectomy, salpingectomy, oophorectomy, or lysis of adhesions. DESCRIPTION OF PROCEDURE: Patient was brought to the operating room, where she was induced with general anesthesia. She was placed in low lithotomy in [facility]. A bimanual examination revealed axial 14-week uterus. She was prepped and draped in the usual sterile fashion. A speculum was placed, and I opted not to put any manipulators on or in the uterus, cervix, or vagina due to her recent state. The vagina and cervix were normal, and her second-degree laceration was healing well. A Boucher catheter was placed. The surgeon's over gloves were removed. All incisions were numbed with 0.5% Marcaine with epinephrine prior to incising them without an 11 blade. All trocars were placed under direct observation. First, a 5 mm incision was made vertically in the inferior part of the umbilicus. The abdominal tissue was tented upward and a 0-degree scope was placed through a 5 mm Visiport trocar, which was inserted into the peritoneal cavity while tenting the abdominal tissue upward. The placement was atraumatic. Gas was connected and intra-abdominal pressure of 15 mmHg was used. The contents of the abdomen and pelvis were visualized. Two 5 mm trocars were then placed 3 cm inferior to and 10 cm lateral to the umbilicus on both sides. Dissection was performed with a LigaSure. I opted not to take down the adhesions between her laparotomy scar and the omentum, because they are just likely to return anyway. The fallopian tube was amputated from the uterus, less than a centimeter away from the cornual attachment. The mesosalpinx was divided for the first 2 cm of the fallopian tube. At that point, the fallopian tube was densely adherent to the ovary. There was no mesosalpinx identified. The tube was also densely adherent to the right sidewall, up at the very highest portion of the pelvis. The ovary was carefully dissected away from the fallopian tube. Good hemostasis was visualized. The 5 mm umbilical trocar was removed and a 10 mm trocar was replaced. The specimen was placed in an EndoCatch. The specimen was brought up to the umbilical incision. At this point, there was some difficulty in getting the specimen out of the abdominal cavity. It was brought to the level of the skin, and multiple passes with a Kavon, an Allis and a hemostat was performed on the specimen, trying to morcellate tissue out to facilitate extrusion of the specimen. Eventually, the EndoCatch bag was pulled all the way through the incision with the specimen still being an intraperitoneal. A second EndoCatch was placed, and the specimen was replaced into the EndoCatch. Again, the contents were morcellated. The fascia also had to be extended vertically and the entire fascial incision was about 3 cm in size. The specimen was ultimately removed. Odor was encountered that was similar to a sebaceous odor. There was no pus identified. Cultures were obtained. The area around the dissection was hemostatic. The peritoneal cavity was copiously irrigated with 2 liters of saline. This was removed with a suction blood donor recruiter. The lateral trocars were removed under direct visualization. The umbilical trocar was also removed. The umbilical fascia was closed with a running layer of 0 Vicryl on a UR-6. The skin was closed with interrupted sutures of 4-0 Monocryl. Dermabond was then applied. The blood and Betadine was washed from her body prior to waking. The Boucher catheter was removed in the operating room. TD: 01/23/2019 17:13 ANGELINE
== END 2019-01-23 16:40 | disposition home or self-care (01) ==
LOC: ED 10:02 → SDS 16:40 → OBS 20:27 → SDS 01-23 16:40
PROVIDERS: ATTEND Obstetrics & Gynecology
PROC: 0UT54ZZ Resection of Right Fallopian Tube, Percutaneous Endoscopic Approach (ICD-10-PCS; principal; 2019-01-22 17:30)
DX: O86.19 Other infection of genital tract following delivery (principal); N70.11 Chronic salpingitis; O99.89 Other specified diseases and conditions complicating pregnancy, childbirth and the puerperium; K59.00 Constipation, unspecified; O99.345 Other mental disorders complicating the puerperium; F41.9 Anxiety disorder, unspecified; F90.9 Attention-deficit hyperactivity disorder, unspecified type; Z87.891 Personal history of nicotine dependence; Z87.19 Personal history of other diseases of the digestive system; Z90.49 Acquired absence of other specified parts of digestive tract
CPT/HCPCS: 36415; 51701; 58661; 74177; 76830; 76856; 80053; 81001; 83690; 85025; 87070; 87205; 88305; 93975; 96374; 99284; A9270; J1170; J1580; J2270; J7120; Q9967; 81003; 87086

== ENCOUNTER 2019-04-04 08:00 | Outpatient (CLI) | payer MEDICAID | END 2019-04-04 08:01 | disposition home or self-care (01) | LOC: LAB.R 08:00 | PROVIDERS: ATTEND Nurse Practitioner Obstetrics & Gynecology | DX: R30.0 Dysuria (principal); N76.0 Acute vaginitis | CPT/HCPCS: 87086 ==

== ENCOUNTER 2019-04-04 10:59 | Outpatient (CLI) | payer MEDICAID ==
[2019-04-04 20:40] LABS: CANDIDA GROUP DNA NEGATIVE (NEGATIVE); CANDIDA KRUSEI DNA NEGATIVE (NEGATIVE); TRICHOMONAS VAGINALIS DNA NEGATIVE (NEGATIVE)
== END 2019-04-04 11:00 | disposition home or self-care (01) ==
LOC: LAB.R 10:59
PROVIDERS: ATTEND Nurse Practitioner Obstetrics & Gynecology
DX: N76.0 Acute vaginitis (principal); R30.0 Dysuria
CPT/HCPCS: 87086; 87661; 87801

== ENCOUNTER 2019-06-28 15:11 | Outpatient (CLI) | payer MEDICAID ==
[2019-06-29 20:56] LABS: CANDIDA GROUP DNA NEGATIVE (NEGATIVE); CANDIDA KRUSEI DNA NEGATIVE (NEGATIVE); TRICHOMONAS VAGINALIS DNA NEGATIVE (NEGATIVE)
[2019-06-29 22:48] LABS: TRICHOMONAS VAGINALIS DNA NEGATIVE (NEGATIVE)
[2019-07-01 06:37] LABS: SOURCE VAG
== END 2019-06-28 23:59 | disposition home or self-care (01) ==
LOC: LAB.R 15:11
PROVIDERS: ATTEND Obstetrics & Gynecology
DX: N76.0 Acute vaginitis (principal)
CPT/HCPCS: 87491; 87529; 87591; 87661; 87801

== ENCOUNTER 2019-07-20 08:00 | Outpatient (CLI) | payer MEDICAID ==
[2019-07-21 21:17] LABS: CANDIDA GROUP DNA NEGATIVE (NEGATIVE); CANDIDA KRUSEI DNA NEGATIVE (NEGATIVE); TRICHOMONAS VAGINALIS DNA NEGATIVE (NEGATIVE)
[2019-07-21 22:02] LABS: TRICHOMONAS VAGINALIS DNA NEGATIVE (NEGATIVE)
== END 2019-07-20 08:01 | disposition home or self-care (01) ==
LOC: LAB.R 08:00
PROVIDERS: ATTEND Obstetrics & Gynecology
DX: R10.2 Pelvic and perineal pain (principal)
CPT/HCPCS: 87491; 87591; 87661; 87801

== ENCOUNTER 2019-11-14 14:43 | Outpatient (CLI) | payer MEDICAID ==
--- NOTE | 2019-11-14 16:07 | Ultrasound Report ---
Reason: PELVIC PAIN ACUTE Procedure Date: 11/14/2019 Accession Number: [id number] / [id number] Procedure: US - Pelvic w/Transvaginal CPT Code: Final Report FULL RESULT: EXAM: PELVIC ULTRASOUND EXAM DATE: 11/14/2019 03:39 PM. CLINICAL HISTORY: Acute pelvic pain. COMPARISON: None. TECHNIQUE: Realtime transabdominal pelvic scan performed to identify the uterus and adnexa and as an overview of other pelvic structures, followed by transvaginal scan to provide greater detail of the uterus and adnexa, with static image documentation. FINDINGS: Uterus: 9.1 x 3.6 x 5.1 cm, volume 87 cc. Anteverted position. Normal overall size and echotexture. Masses: None. Endometrium: 6 mm. Normal. Cervix: Unremarkable. Right Ovary: 2.3 x 1.7 x 1.5 cm, volume 3.1 cc. Normal echotexture and blood flow. Left Ovary: 2.1 x 1.8 x 2.4 cm, volume 4.9 cc. Normal echotexture and blood flow. Free Fluid: None. Other: None. IMPRESSION: Normal pelvic ultrasound. No etiology for pelvic pain identified. Normal ovaries. RADIA
== END 2019-11-14 14:44 | disposition home or self-care (01) ==
LOC: DI 14:43
PROVIDERS: ATTEND Nurse Practitioner Obstetrics & Gynecology
DX: R10.2 Pelvic and perineal pain (principal)
CPT/HCPCS: 76830; 76856

== ENCOUNTER 2020-05-20 08:00 | Outpatient (CLI) | payer MEDICAID | END 2020-05-20 23:59 | disposition home or self-care (01) | LOC: LAB.R 08:00 | PROVIDERS: ATTEND Physician Assistant Medical | DX: R51 Headache (principal) | CPT/HCPCS: 87086 ==

== ENCOUNTER 2021-11-11 08:00 | Outpatient (CLI) | payer MEDICAID ==
--- NOTE | 2021-11-11 11:23 | XRAY Report ---
PROCEDURE: Chest 2 View X-Ray INDICATIONS: HEMOPTYSIS TECHNIQUE: 2 view(s) of the chest. COMPARISON: None. FINDINGS: Surgical changes and devices: None. Lungs and pleura: No pleural effusions or pneumothorax. Lungs are clear. Mediastinum: Mediastinal contours are normal. Heart size is normal. Bones and chest wall: No suspicious bony abnormalities. Soft tissues appear unremarkable. IMPRESSION: No acute cardiopulmonary disease. Reviewed by: Pretty Cherry MD on 11/11/2021 11:[address] [facility] Approved by: Pretty Cherry MD on 11/11/2021 11:[address] [facility] Station ID: [id number]
== END 2021-11-11 23:59 | disposition home or self-care (01) ==
LOC: DI.S 08:00
PROVIDERS: ATTEND Physician Assistant
DX: R04.2 Hemoptysis (principal)

== ENCOUNTER 2021-12-05 08:00 | Outpatient (CLI) | payer MEDICAID ==
[2021-12-05 18:48] LABS: BILIRUBIN,URINE NEGATIVE (NEGATIVE); GLUCOSE, URINE (UA) NEGATIVE (NEGATIVE); KETONES,URINE (UA) NEGATIVE (NEGATIVE); LEUKOCYTE ESTERASE, URINE NEGATIVE (NEGATIVE); NITRITE,URINE NEGATIVE (NEGATIVE); OCCULT BLOOD,URINE NEGATIVE (NEGATIVE); PROTEIN,URINE NEGATIVE (NEGATIVE); UROBILINOGEN,URINE 0.2 (NORMAL) E.U./dL (NORMAL)
[2021-12-05 18:51] LABS: CLARITY,URINE CLEAR (CLEAR)
[2021-12-05 20:06] LABS: RBC,URINE None Seen /HPF (0-5); WBC,URINE 0-3 /HPF (0-5)
[2021-12-05 20:07] LABS: BACTERIA,URINE Rare /HPF (None Seen); SQUAMOUS EPITHELIAL CELL,UR NONE SEEN (<= Few)
== END 2021-12-05 23:59 | disposition home or self-care (01) ==
LOC: LAB 08:00
PROVIDERS: ATTEND Nurse Practitioner Obstetrics & Gynecology
DX: R39.15 Urgency of urination (principal)
CPT/HCPCS: 81001; 87086

== ENCOUNTER 2021-12-10 10:47 | Outpatient (CLI) | payer MEDICAID ==
--- NOTE | 2021-12-10 17:50 | Ultrasound Report ---
PROCEDURE: Pelvic w/Transvaginal INDICATIONS: PELVIC PAIN, AMENORRHEA TECHNIQUE: Real-time scanning was performed of the pelvic organs, with image documentation. Additional endovagi nal scanning was necessary due to incomplete visualization of the adnexal and endometrial structures by transabdominal scanning. COMPARISON: None. FINDINGS: Uterus: Uterus is anteverted and measures 9.6 x 4 x 4.9 cm. The endometrium measures 0.2 cm in combi maxine thickness. No discrete uterine mass identified. A small amount of fluid is noted in the cervical canal. Ovaries: The right ovary measures 4.7 x 3.5 x 3.6 cm for a volume of 30.9 mL and the left ovary ciro ures 2.3 x 1.4 x 1.6 cm for a volume of 2.7 mL. No adnexal masses identified. There is a right ovaria n cyst measuring up to 2.6 x 2 x 1.8 cm likely representing a follicular cyst. IMPRESSION: 1. Normal sonographic study of the pelvis. 2. Probable follicular cyst in the right ovary. Reviewed by: Marito Dickerson MD on 12/10/2021 5:49 PM PST Approved by: Marito Dickerson MD on 12/10/2021 5:49 PM PST Station ID: [id number]
== END 2021-12-10 10:48 | disposition home or self-care (01) ==
LOC: DI 10:47
PROVIDERS: ATTEND Nurse Practitioner Obstetrics & Gynecology
DX: N91.2 Amenorrhea, unspecified (principal); R10.2 Pelvic and perineal pain

== ENCOUNTER 2021-12-20 08:00 | Outpatient (CLI) | payer MEDICAID ==
[2021-12-20 17:53] LABS: BASOPHILS # (AUTO) 0.1 10^3/uL (0.0-0.1); BASOPHILS % (AUTO) 0.5 %; EOSINOPHILS # (AUTO) 0.3 10^3/uL (0.0-0.7); HCT - HEMATOCRIT 42.1 % (37.0-47.0); LYMPHOCYTES # (AUTO) 3.8 10^3/uL (1.5-3.5); LYMPHOCYTES % (AUTO) 29.3 %; MEAN CORPUSCULAR HEMOGLOBIN 29.5 pg (27.0-31.0); MEAN CORPUSCULAR HGB CONC 33.3 g/dL (32.0-36.0); MEAN CORPUSCULAR VOLUME 88.8 fL (81.0-99.0); MEAN PLATELET VOLUME 10.6 fL (7.9-10.8); MONOCYTES # (AUTO) 0.8 10^3/uL (0.0-1.0); MONOCYTES % (AUTO) 5.8 %; NEUTROPHILS # (AUTO) 8.2 10^3/uL (1.5-6.6); NEUTROPHILS % (AUTO) 62.2 %; PLT - PLATELET COUNT 338 10^3/uL (130-450); RED BLOOD COUNT 4.74 10^6/uL (4.20-5.40); RED CELL DISTRIBUTION WIDTH 13.6 % (12.0-15.0); WHITE BLOOD COUNT 13.1 x10^3/uL (4.8-10.8)
[2021-12-20 18:16] LABS: ALBUMIN 4.4 g/dL (3.2-5.5); ALBUMIN/GLOBULIN RATIO 1.3 (1.0-2.2); BILIRUBIN,TOTAL 0.3 mg/dL (0.2-1.0); CALCIUM 9.4 mg/dL (8.5-10.3); CREATININE 0.6 mg/dL (0.4-1.0); POTASSIUM 3.4 mmol/L (3.5-5.0); TOTAL PROTEIN 7.7 g/dL (6.7-8.2)
[2021-12-20 18:28] LABS: THYROID STIMULATING HORMONE 3.6 uIU/mL (0.34-5.60)
== END 2021-12-20 23:59 | disposition home or self-care (01) ==
LOC: LAB.S 08:00
PROVIDERS: ATTEND Registered Nurse
DX: R21 Rash and other nonspecific skin eruption (principal); R19.7 Diarrhea, unspecified
CPT/HCPCS: 36415; 80053; 84443; 85025; 86140

== ENCOUNTER 2022-01-23 19:00 | Emergency (ER) | payer MEDICAID ==
[2022-01-23 19:16] VITALS: BP 136/83
[2022-01-23] MEDS ORDERED: IBUPROFEN 800 MG TABLET PO STA (19:24)
--- NOTE | 2022-01-23 19:29 | ED Physician Documentation ---
PD HPI UPPER EXT INJURY - Stated complaint Stated Complaint: LT WRIST PX - Chief complaint Chief Complaint: Ext Problem - History obtained from History obtained from: Patient - Additonal information Additional information: Diagnosed a few years ago with a ganglion cyst of the left wrist which over the last few days has become more painful. She thinks it may be because of taking care of her 3-year-old son. No fevers or chills. She was seen at [facility] a few years ago by hand surgeon and surgery was recommended Review of Systems Constitutional: reports: Reviewed and negative Eyes: reports: Reviewed and negative Ears: reports: Reviewed and negative Cardiac: reports: Reviewed and negative PD PAST MEDICAL HISTORY - Past Medical History Cardiovascular: None, Other (RLS) Respiratory: None Neuro: None Endocrine/Autoimmune: None GI: GERD (during ), Other : None Psych: Anxiety, ADD/ADHD Musculoskeletal: None Derm: None - Past Surgical History Past Surgical History: Yes General: Bowel surgery (as an ) HEENT: Tonsil/Adenoidectomy - Present Medications Home Medications: Ambulatory Orders Medication Instructions Recorded Confirmed Acetaminophen [Tylenol Extra 1,000 mg PO Q4HR PRN 01/22/19 01/23/22 Strength] Ibuprofen 800 mg PO Q8HR PRN 01/22/19 01/23/22 Sertraline HCl 150 mg PO DAILY 01/22/19 01/23/22 HYDROcod/ACETAM 5/325 [[place] 5/325] 1 - 2 tab PO Q6H PRN #10 tablet 01/23/22 Ibuprofen [Motrin] 800 mg PO Q8H PRN #30 tablet 01/23/22 - Allergies Allergies/Adverse Reactions: Allergies Allergy/AdvReac Type Severity Reaction Status Date / Time No Known Drug Allergies Allergy Verified 01/23/22 19:16 - Social History Does the pt smoke?: No Smoking Status: Former smoker Does the pt drink ETOH?: No Does the pt have substance abuse?: No - Immunizations Immunizations are current?: Yes - POLST Patient has POLST: No PD ED PE NORMAL - Vitals Vital signs reviewed: Yes - General General: Alert and oriented X 3, No acute distress - Extremities Extremities: Other (There is a tender ganglion cyst on the dorsum of the left wrist without signs of infection. It is actually fairly small.) - Neuro Neuro: Alert and oriented X 3, Normal speech Results - Vitals Vitals: Vital Signs - 24 hr 01/23/22 19:10 Temperature 36.2 C L Heart Rate 76 Respiratory 16 Rate Blood Pressure 136/83 H O2 Saturation 98 Oxygen O2 Source Room air PD MEDICAL DECISION MAKING - ED course ED course: 26-year-old woman with painful ganglion cyst. She has not yet tried NSAIDs which we will trial as well as a wrist splint. Advised to follow-up with the hand surgeon. Departure - Departure Disposition: 01 Home, Self Care Clinical Impression: Ganglion cyst of dorsum of left wrist Condition: Good Record reviewed to determine appropriate education?: Yes Instructions: ED Cyst Ganglion Prescriptions: Ibuprofen [Motrin] 800 mg PO Q8H PRN #30 tablet PRN Reason: PAIN &/OR FEVER HYDROcod/ACETAM 5/325 [[place] 5/325] 1 - 2 tab PO Q6H PRN #10 tablet PRN Reason: Pain Comments: If you can get by without taking the hydrocodone do that, otherwise it is at [facility] if you needed as well as the anti-inflammatory. Return for new or worsening symptoms. You should follow-up with hand surgery at [facility], the phone number is [phone] I am prescribing a short course of narcotic pain medication for you. These are potentially dangerous and addictive medications that should be used carefully. These medications may constipate you. Take an wdvb-ljm-bqjpitp stool softener (docusate) twice daily with plenty of water while taking these medications. If you go 24 hours without a bowel movement, take iizj-osw-yftqyfh miralax, per package instructions. Do not drink or drive while taking these medications. If you received narcotic or sedating medications while in the emergency department, do not drive for 24 hours. Store this medication in a safe, secure place and out of reach of children. It is a violation of federal law to give or sell this medication to another person or to use in a manner other than prescribed. The ED will not refill narcotic prescriptions, including prescriptions lost or stolen. To dispose of unwanted medications: 1. [facility] at [address] in [place] has a medication drop box. They accept prescription medications (in pill form) Wednesday through Wednesday 9:00 a.m. to 5:00 p.m. 2. The [facility] [employer] accepts prescription medications (in pill form only) for disposal year round. Call for more information. 3. Contact the [facility] for the next [facility] sponsored prescription drug collection event. , [phone], or [phone]; Note that many narcotic pain relievers also contain Tylenol/acetaminophen. Please ensure that your total dose of acetaminophen from all sources does not exceed 3 g (3000 mg) per day.
== END 2022-01-23 19:33 | disposition home or self-care (01) ==
LOC: ED 19:00
DX: M67.432 Ganglion, left wrist (principal); Z87.891 Personal history of nicotine dependence
CPT/HCPCS: 99282; A9270

== ENCOUNTER 2022-04-07 08:00 | Outpatient (CLI) | payer MEDICAID ==
[2022-04-07 22:49] LABS: BACTERIAL VAGINOSIS DNA NEGATIVE (NEGATIVE); CANDIDA GLABRATA DNA NEGATIVE (NEGATIVE); CANDIDA GROUP DNA NEGATIVE (NEGATIVE); CANDIDA KRUSEI DNA NEGATIVE (NEGATIVE); TRICHOMONAS VAGINALIS DNA NEGATIVE (NEGATIVE)
== END 2022-04-07 23:59 | disposition home or self-care (01) ==
LOC: LAB.WC 08:00
PROVIDERS: ATTEND Obstetrics & Gynecology
DX: N89.8 Other specified noninflammatory disorders of vagina (principal)
CPT/HCPCS: 81514

== ENCOUNTER 2022-06-19 08:00 | Outpatient (CLI) | payer MEDICAID ==
[2022-06-19 15:12] LABS: BILIRUBIN,URINE NEGATIVE (NEGATIVE); GLUCOSE, URINE (UA) NEGATIVE (NEGATIVE); KETONES,URINE (UA) NEGATIVE (NEGATIVE); LEUKOCYTE ESTERASE, URINE NEGATIVE (NEGATIVE); NITRITE,URINE NEGATIVE (NEGATIVE); OCCULT BLOOD,URINE NEGATIVE (NEGATIVE); PROTEIN,URINE NEGATIVE (NEGATIVE); UROBILINOGEN,URINE 0.2 (NORMAL) E.U./dL (NORMAL)
[2022-06-19 15:20] LABS: BACTERIA,URINE Rare /HPF (None Seen); CLARITY,URINE CLEAR (CLEAR); MUCUS,URINE Few Strands; RBC,URINE None Seen /HPF (0-5); SQUAMOUS EPITHELIAL CELL,UR RARE Squamous (<= Few); WBC,URINE 0-3 /HPF (0-5)
[2022-06-19 19:18] LABS: BACTERIAL VAGINOSIS DNA NEGATIVE (NEGATIVE); CANDIDA GLABRATA DNA NEGATIVE (NEGATIVE); CANDIDA GROUP DNA NEGATIVE (NEGATIVE); CANDIDA KRUSEI DNA NEGATIVE (NEGATIVE); TRICHOMONAS VAGINALIS DNA NEGATIVE (NEGATIVE)
[2022-06-19 20:19] LABS: CHLAMYDIA TRACHOMATIS DNA NEGATIVE (NEGATIVE); NEISSERIA GONORRHOEAE DNA NEGATIVE (NEGATIVE)
== END 2022-06-19 23:59 | disposition home or self-care (01) ==
LOC: LAB 08:00
PROVIDERS: ATTEND Physician Assistant
DX: N93.9 Abnormal uterine and vaginal bleeding, unspecified (principal); N89.8 Other specified noninflammatory disorders of vagina; R10.9 Unspecified abdominal pain; J35.8 Other chronic diseases of tonsils and adenoids; R07.0 Pain in throat
CPT/HCPCS: 81001; 81514; 87070; 87086; 87491; 87591; 87661

== ENCOUNTER 2022-06-19 09:44 | Outpatient (CLI) | payer MEDICAID | END 2022-06-19 09:45 | disposition home or self-care (01) | LOC: LAB.S 09:44 | PROVIDERS: ATTEND Nurse Practitioner | DX: Z53.9 Procedure and treatment not carried out, unspecified reason (principal) | CPT/HCPCS: 36415; 84702 ==

== ENCOUNTER 2022-06-19 10:42 | Outpatient (CLI) | payer MEDICAID | END 2022-06-19 10:43 | disposition home or self-care (01) | LOC: LAB 10:42 | PROVIDERS: ATTEND Nurse Practitioner | DX: N93.9 Abnormal uterine and vaginal bleeding, unspecified (principal) | CPT/HCPCS: 36415; 84702 ==

== ENCOUNTER 2022-06-20 19:38 | Emergency (ER) | payer MEDICAID ==
[2022-06-20 20:13] LABS: BASOPHILS # (AUTO) 0.1 10^3/uL (0.0-0.1); BASOPHILS % (AUTO) 0.4 %; EOSINOPHILS # (AUTO) 0.2 10^3/uL (0.0-0.7); EOSINOPHILS % (AUTO) 1.2 %; HCT - HEMATOCRIT 41.5 % (37.0-47.0); HGB - HEMOGLOBIN 13.9 g/dL (12.0-16.0); LYMPHOCYTES # (AUTO) 1.9 10^3/uL (1.5-3.5); LYMPHOCYTES % (AUTO) 14.9 %; MEAN CORPUSCULAR HEMOGLOBIN 29.8 pg (27.0-31.0); MEAN CORPUSCULAR HGB CONC 33.5 g/dL (32.0-36.0); MEAN CORPUSCULAR VOLUME 89.1 fL (81.0-99.0); MEAN PLATELET VOLUME 10.1 fL (7.9-10.8); MONOCYTES # (AUTO) 1.1 10^3/uL (0.0-1.0); MONOCYTES % (AUTO) 8.6 %; NEUTROPHILS # (AUTO) 9.4 10^3/uL (1.5-6.6); NEUTROPHILS % (AUTO) 74.5 %; PLT - PLATELET COUNT 278 10^3/uL (130-450); RED BLOOD COUNT 4.66 10^6/uL (4.20-5.40); WHITE BLOOD COUNT 12.7 x10^3/uL (4.8-10.8)
[2022-06-20] MEDS: KETOROLAC 30 MG/ML VIAL IVP STA (20:14)
[2022-06-20] MEDS: SODIUM CHLORIDE 0.9% 1,000 ML IV STA (20:14)
[2022-06-20 20:22] LABS: BILIRUBIN,URINE NEGATIVE (NEGATIVE); GLUCOSE, URINE (UA) NEGATIVE (NEGATIVE); KETONES,URINE (UA) NEGATIVE (NEGATIVE); LEUKOCYTE ESTERASE, URINE NEGATIVE (NEGATIVE); NITRITE,URINE NEGATIVE (NEGATIVE); OCCULT BLOOD,URINE NEGATIVE (NEGATIVE); PH,URINE 5.5 PH (5.0-7.5); PROTEIN,URINE NEGATIVE (NEGATIVE); UROBILINOGEN,URINE 0.2 (NORMAL) E.U./dL (NORMAL)
[2022-06-20 20:27] LABS: CLARITY,URINE CLEAR (CLEAR); HCG UR QUAL NEGATIVE
--- NOTE | 2022-06-20 20:32 | ED Physician Documentation ---
History of Present Illness - Stated complaint Stated Complaint: FEMALE - Chief complaint Chief Complaint: Abd Pain - History obtained from History obtained from: Patient - Additonal information Additional information: Patient presenting for evaluation of sore throat that has been present for 3 days along with a fever that was noted this afternoon. She additionally has been having vaginal bleeding for the last 4 days and states that it is not time yet for her period. She had just had a period 06/04-06/14 that was normal for her. She stopped oral contraceptives a few months ago as she is wanting to get . She has used 3 super tampons today.In regards to her sore throat, she has used ibuprofen with the last dose being this morning. She denies a cough, difficulty breathing, chest pain. She has mild suprapubic discomfort but denies dysuria. She denies nausea, vomiting, diarrhea, abnormal vaginal discharge. She denies concerns for sexually transmitted infections. She was evaluated at the [facility] yesterday and had a pelvic exam with swabs which were negative for STDs along with a negative urine and test. There is a plan for an outpatient ultrasound.Due to feeling worse today patient has presented to the emergency department. Review of Systems Constitutional: reports: Fever Throat: reports: Sore throat Cardiac: denies: Chest pain / pressure Respiratory: denies: Dyspnea, Cough GI: reports: Abdominal Pain. denies: Vomiting, Diarrhea : reports: Vaginal bleeding. denies: Dysuria Musculoskeletal: denies: Back pain Neurologic: denies: Headache PD PAST MEDICAL HISTORY - Past Medical History Cardiovascular: None, Other (RLS) Respiratory: None Neuro: None Endocrine/Autoimmune: None GI: GERD (during ), Other : None Psych: Anxiety, ADD/ADHD Musculoskeletal: None Derm: None - Past Surgical History Past Surgical History: Yes General: Bowel surgery (as an infant) HEENT: Tonsil/Adenoidectomy - Present Medications Home Medications: Ambulatory Orders Medication Instructions Recorded Confirmed Sertraline HCl 150 mg PO DAILY 01/22/19 06/20/22 - Allergies Allergies/Adverse Reactions: Allergies Allergy/AdvReac Type Severity Reaction Status Date / Time No Known Drug Allergies Allergy Verified 06/20/22 19:52 - Social History Does the pt smoke?: No Smoking Status: Former smoker Does the pt drink ETOH?: No Does the pt have substance abuse?: No - Immunizations Immunizations are current?: Yes - POLST Patient has POLST: No PD ED PE NORMAL - General General: Alert and oriented X 3, No acute distress, Well developed/nourished - HEENT HEENT: Atraumatic, Moist mucous membranes, Other (Patchy white spot to bilateral tonsils, no Peritonsillar abscess, Normal speech,) - Neck Neck: Supple, no meningeal sign - Cardiac Cardiac: RRR, No murmur, Strong equal pulses - Respiratory Respiratory: No respiratory distress, Clear bilaterally - Abdomen Abdomen: Normal bowel sounds, Soft, Non distended, Other (Mild suprapubic tenderness, well-healed right-sided abdominal incision) - Derm Derm: Warm and dry - Extremities Extremities: No edema - Neuro Neuro: Normal speech Results - Vitals Vitals: Vital Signs - 24 hr 06/20/22 06/20/22 06/20/22 19:44 21:44 22:50 Temperature 39.3 C H Heart Rate 107 H 85 64 Respiratory 20 16 Rate Blood Pressure 127/81 H 116/63 101/59 L O2 Saturation 97 97 98 Oxygen O2 Source Room air - Labs Labs: Laboratory Tests 06/20/22 06/20/22 06/20/22 19:35 19:35 20:08 WBC 12.7 H RBC 4.66 Hgb 13.9 Hct 41.5 MCV 89.1 MCH 29.8 MCHC 33.5 RDW 13.0 Plt Count 278 MPV 10.1 Neut # (Auto) 9.4 H Lymph # (Auto) 1.9 Jones # (Auto) 1.1 H Eos # (Auto) 0.2 Baso # (Auto) 0.1 Absolute Nucleated RBC 0.00 Nucleated RBC % 0.0 Sodium Potassium Chloride Carbon Dioxide Anion Gap BUN Creatinine Estimated GFR (MDRD) Glucose Lactic Acid Calcium Total Bilirubin AST ALT Alkaline Phosphatase Total Protein Albumin Globulin Albumin/Globulin Ratio Lipase Urine Color YELLOW Urine Clarity CLEAR Urine pH 5.5 Ur Specific Ayden >=1.030 H Urine Protein NEGATIVE Urine Glucose (UA) NEGATIVE Urine Ketones NEGATIVE Urine Occult Blood NEGATIVE Urine Nitrite NEGATIVE Urine Bilirubin NEGATIVE Urine Urobilinogen 0.2 (NORMAL) Ur Leukocyte Esterase NEGATIVE Ur Microscopic Review NOT INDICATED Urine Culture Comments NOT INDICATED Urine HCG, Qual NEGATIVE Nasal Adenovirus (PCR) Nasal B. parapertussis DNA (PCR) Nasal Coronavir 229E PCR Nasal Coronavir HKU1 PCR Nasal Coronavir NL63 PCR Nasal Coronavir OC43 PCR Nasal Enterovir/Rhinovir PCR Nasal Influenza B PCR Nasal Influenza A PCR Nasal Parainfluen 1 PCR Nasal Parainfluen 2 PCR Nasal Parainfluen 3 PCR Nasal Parainfluen 4 PCR Nasal RSV (PCR) Nasal B.pertussis DNA PCR Nasal C.pneumoniae (PCR) Sam Human Metapneumo PCR Nasal M.pneumoniae (PCR) Nasal SARS-CoV-2 (PCR) Group A Strep Rapid 06/20/22 06/20/22 06/20/22 20:08 20:08 20:08 WBC RBC Hgb Hct MCV MCH MCHC RDW Plt Count MPV Neut # (Auto) Lymph # (Auto) Jones # (Auto) Eos # (Auto) Baso # (Auto) Absolute Nucleated RBC Nucleated RBC % Sodium Potassium Chloride Carbon Dioxide Anion Gap BUN Creatinine Estimated GFR (MDRD) Glucose Lactic Acid 2.5 H Calcium Total Bilirubin AST ALT Alkaline Phosphatase Total Protein Albumin Globulin Albumin/Globulin Ratio Lipase Urine Color Urine Clarity Urine pH Ur Specific Ayden Urine Protein Urine Glucose (UA) Urine Ketones Urine Occult Blood Urine Nitrite Urine Bilirubin Urine Urobilinogen Ur Leukocyte Esterase Ur Microscopic Review Urine Culture Comments Urine HCG, Qual Nasal Adenovirus (PCR) NOT DETECTED Nasal B. parapertussis DNA (PCR) NOT DETECTED Nasal Coronavir 229E PCR NOT DETECTED Nasal Coronavir HKU1 PCR NOT DETECTED Nasal Coronavir NL63 PCR NOT DETECTED Nasal Coronavir OC43 PCR NOT DETECTED Nasal Enterovir/Rhinovir PCR NOT DETECTED Nasal Influenza B PCR NOT DETECTED Nasal Influenza A PCR NOT DETECTED Nasal Parainfluen 1 PCR NOT DETECTED Nasal Parainfluen 2 PCR NOT DETECTED Nasal Parainfluen 3 PCR NOT DETECTED Nasal Parainfluen 4 PCR NOT DETECTED Nasal RSV (PCR) NOT DETECTED Nasal B.pertussis DNA PCR NOT DETECTED Nasal C.pneumoniae (PCR) NOT DETECTED Sam Human Metapneumo PCR NOT DETECTED Nasal M.pneumoniae (PCR) NOT DETECTED Nasal SARS-CoV-2 (PCR) NOT DETECTED Group A Strep Rapid Negative 06/20/22 21:04 WBC RBC Hgb Hct MCV MCH MCHC RDW Plt Count MPV Neut # (Auto) Lymph # (Auto) Jones # (Auto) Eos # (Auto) Baso # (Auto) Absolute Nucleated RBC Nucleated RBC % Sodium 139 Potassium 3.7 Chloride 108 Carbon Dioxide 24 Anion Gap 7.0 BUN 9 Creatinine 0.6 Estimated GFR (MDRD) 119 Glucose 109 H Lactic Acid Calcium 9.2 Total Bilirubin 0.2 AST 19 ALT 27 Alkaline Phosphatase 93 Total Protein 6.5 L Albumin 3.7 Globulin 2.8 Albumin/Globulin Ratio 1.3 Lipase 30 Urine Color Urine Clarity Urine pH Ur Specific Ayden Urine Protein Urine Glucose (UA) Urine Ketones Urine Occult Blood Urine Nitrite Urine Bilirubin Urine Urobilinogen Ur Leukocyte Esterase Ur Microscopic Review Urine Culture Comments Urine HCG, Qual Nasal Adenovirus (PCR) Nasal B. parapertussis DNA (PCR) Nasal Coronavir 229E PCR Nasal Coronavir HKU1 PCR Nasal Coronavir NL63 PCR Nasal Coronavir OC43 PCR Nasal Enterovir/Rhinovir PCR Nasal Influenza B PCR Nasal Influenza A PCR Nasal Parainfluen 1 PCR Nasal Parainfluen 2 PCR Nasal Parainfluen 3 PCR Nasal Parainfluen 4 PCR Nasal RSV (PCR) Nasal B.pertussis DNA PCR Nasal C.pneumoniae (PCR) Sam Human Metapneumo PCR Nasal M.pneumoniae (PCR) Nasal SARS-CoV-2 (PCR) Group A Strep Rapid PD MEDICAL DECISION MAKING - ED course Complexity details: reviewed results, re-evaluated patient, d/w patient ED course: Patient presenting with fever and sore throat. Has also been having irregular vaginal bleeding first 4 days. She is febrile and slightly tachycardic but otherwise reassuring vitals. Clinical exam is also reassuring with no signs of peritonsillar abscess or deep space infection. Labs reviewed without significant findings. Strep test is negative and COVID is also negative. Pelvic ultrasound was obtained which is negative for torsion and no signs of abscess. Patient just had pelvic exam done yesterday with cultures obtained w [facility] were all negative. Patient felt better after IV fluids and Toradol. Her abdominal exam Remained benign and I do not think she has a surgical abdomen. She was counseled to continue with supportive care as well as follow-up with the women's clinic and advised on strict return precautions. 213 - Patient states that she is feeling better. Repeat abdominal exam is benign with no tenderness. Patient is resting comfortably and aware that we are waiting for results of chemistry and ultrasound report. Departure - Departure Disposition: 01 Home, Self Care Clinical Impression: Viral pharyngitis, Abnormal vaginal bleeding, Fever Condition: Stable Instructions: ED Bleed Irregular Vaginal, ED Fever Unconf Cause, ED Pharyngitis Viral Follow-Up: Marietat Guevara ARNP [Provider Admit Priv/Credential] - Comments: You were evaluated for a fever and sore throat. A COVID and strep test were both negative. A strep culture has also been sent we will notify you of any abnormal results. Your labs are also overall reassuring. You were also evaluated for abnormal vaginal bleeding and ultrasound did not show any abnormalities. Please follow-up with the women's care clinic if the bleeding co ntinues. If you have any worsening symptoms such as increased pain, abnormal discharge, heavy bleeding where you are soaking Through a pad or a tampon an hour for several hours or any concerns please return to the ER. Discharge Date/Time: 06/20/22 22:50
[2022-06-20 20:34] LABS: RAPID STREP SCREEN Negative (Negative)
[2022-06-20 21:23] LABS: B. PARAPERTUSSIS- RESP PCR PAN NOT DETECTED; B. PERTUSSIS- RESP PCR PANEL NOT DETECTED; C. PNEUMONIAE- RESP PCR PANEL NOT DETECTED; CORONAVIRUS 229E-RESP PCR NOT DETECTED; CORONAVIRUS HKU1-RESP PCR NOT DETECTED; CORONAVIRUS NL63-RESP PCR NOT DETECTED; CORONAVIRUS OC43-RESP PCR NOT DETECTED; HUMAN METAPNEUMOVIRUS NOT DETECTED; INFLUENZA A- RESP PCR PANEL NOT DETECTED; INFLUENZA B - RESP PCR PANEL NOT DETECTED; M. PNEUMONIAE- RESP PCR PANEL NOT DETECTED; PARAINFLUENZA VIRUS 1 NOT DETECTED; PARAINFLUENZA VIRUS 2 NOT DETECTED; PARAINFLUENZA VIRUS 3 NOT DETECTED; PARAINFLUENZA VIRUS 4 NOT DETECTED; RHINOVIRUS/ENTEROVIRUS NOT DETECTED; RSV- RESP PCR PANEL NOT DETECTED; SARS-CoV-2 -RESP PCR PANEL NOT DETECTED
[2022-06-20 21:59] LABS: ALBUMIN 3.7 g/dL (3.2-5.5); ALBUMIN/GLOBULIN RATIO 1.3 (1.0-2.2); BILIRUBIN,TOTAL 0.2 mg/dL (0.2-1.0); CALCIUM 9.2 mg/dL (8.5-10.3); CREATININE 0.6 mg/dL (0.4-1.0); POTASSIUM 3.7 mmol/L (3.5-5.0); TOTAL PROTEIN 6.5 g/dL (6.7-8.2)
--- NOTE | 2022-06-20 22:10 | Ultrasound Report ---
PROCEDURE: Pelvic w/Transvag+Doppler Comp INDICATIONS: fever/pain/bleeding TECHNIQUE: Real-time scanning was performed of the pelvic organs, with image documentation. Additional endovagi nal scanning was necessary due to incomplete visualization of the adnexal and endometrial structures by transabdominal scanning. Doppler interrogation was performed of the ovaries bilaterally. COMPARISON: Pelvic ultrasound 12/10/2021. FINDINGS: Exam is technically limited by acoustic windows. No pathologic free abdominal or pelvic fluid. Uterus: Uterus is anteverted normal in size at 8.6 x 5.2 x 4.3 cm. The endometrium measures 9 mm in combined thickness. Ovaries: Right ovary measures 2.1 x 1.5 x 1.2 cm, volume of 2 cc. Left ovary measures 3.7 x 1.7 x 1. 6 cm, volume of 5 cc. Normal appearing arterial and venous waveforms are confirmed to each ovary.] Bl ood flows seen in both ovaries. Other: No free pelvic fluid. IMPRESSION: Exam is technically limited due to acoustic windows. 1. No ovarian torsion. 2. Endometrium is within normal limits. Reviewed by: Graeme Feldman MD on 06/20/2022 10:08 PM PDT Approved by: Graeme Feldman MD on 06/20/2022 10:08 PM PDT Station ID: [id number]
[2022-06-20 22:52] VITALS: BP 101/59
== END 2022-06-20 22:50 | disposition home or self-care (01) ==
LOC: ED 19:38
DX: R50.9 Fever, unspecified (principal); N93.9 Abnormal uterine and vaginal bleeding, unspecified; Z87.891 Personal history of nicotine dependence; J02.8 Acute pharyngitis due to other specified organisms; Z20.822 Contact with and (suspected) exposure to COVID-19
CPT/HCPCS: 36415; 80053; 81001; 81003; 81025; 83605; 83690; 85025; 87070; 87086; 87430; 87633; 93975; 96374; 99282

== ENCOUNTER 2022-09-13 11:13 | Emergency (ER) | payer MEDICAID ==
[2022-09-13] MEDS ORDERED: DEXAMETHASONE 10 MG/ML VIAL IVP STA (13:05)
[2022-09-13] MEDS ORDERED: SODIUM CHLORIDE 0.9% 1,000 ML IV STA (13:05)
[2022-09-13] MEDS ORDERED: METOCLOPRAMIDE 10 MG/2 ML VIAL IVP STA (13:05)
--- NOTE | 2022-09-13 13:06 | ED Physician Documentation ---
PD HPI HEADACHE - Stated complaint Stated Complaint: MIGRAINE/SOA - Chief complaint Chief Complaint: Neuro - History obtained from History obtained from: Patient - History of Present Illness Timing - onset: How many days ago (7) Timing - duration: Days (7) Timing - details: Gradual onset Worst headache ever?: Worst headache ever? (No) Location: Global Quality: Throbbing, Aching. No: Thunderclap, Stabbing, Tightness, Like head is exploding Associated symptoms: Nausea. No: Fever, Stiff neck, Vomiting, Weakness, Numbness, Syncope, Seizure, Eye pain, Vision changes Improved by: Nothing Worsened by: No: Light, Noise, Moving Contributing factors: No: Anticoagulated, Possible carbon monoxide, Hypertension Similar symptoms before: No diagnosis - Additional information Additional information: This is a 26-year-old female who presented with about a week of generalized headache. She did have a viral syndrome before that but those symptoms have improved and the headache remained. She Has not had a recent fever, no neck stiffness, denies thunderclap headache or the worst headache of her life. She has been taking Tylenol without relief in her symptoms. She has mild nausea, no vomiting, no light or sound sensitivity. No extremity weakness or numbness, no other focal neuro changes. Presented today due to a friend Who is a medic on the [place] [employer] telling her that she definitely should get seen in the ER. Review of Systems Ten Systems: 10 systems reviewed and negative (except as per HPI) PD PAST MEDICAL HISTORY - Past Medical History Past Medical History: Yes Cardiovascular: None, Other (RLS) Respiratory: None Neuro: None Endocrine/Autoimmune: None GI: GERD (during ), Other : None Psych: Anxiety, ADD/ADHD Musculoskeletal: None Derm: None - Past Surgical History Past Surgical History: Yes General: Bowel surgery (as an ) HEENT: Tonsil/Adenoidectomy - Present Medications Home Medications: Ambulatory Orders Medication Instructions Recorded Confirmed Sertraline HCl 150 mg PO DAILY 01/22/19 06/20/22 - Allergies Allergies/Adverse Reactions: Allergies Allergy/AdvReac Type Severity Reaction Status Date / Time dexamethasone AdvReac Anxiety Verified 09/13/22 14:13 - Social History Does the pt smoke?: No Smoking Status: Former smoker Does the pt drink ETOH?: No Does the pt have substance abuse?: No - Immunizations Immunizations are current?: Yes - POLST Patient has POLST: No PD ED PE NORMAL - Vitals Vital signs reviewed: Yes - General General: Alert and oriented X 3, No acute distress, Well developed/nourished - HEENT HEENT: Atraumatic, PERRL, EOMI, Ears normal, Moist mucous membranes, Pharynx benign - Neck Neck: Supple, no meningeal sign, No adenopathy - Cardiac Cardiac: RRR, No murmur - Respiratory Respiratory: No respiratory distress, Clear bilaterally - Abdomen Abdomen: Normal bowel sounds, Soft, Non tender, Non distended - Derm Derm: Normal color, Warm and dry, No rash - Neuro Neuro: Alert and oriented X 3, No motor deficit, No sensory deficit, Normal speech Eye Opening: Spontaneous Motor: Obeys Commands Verbal: Oriented GCS Score: 15 Results - Vitals Vitals: Vital Signs - 24 hr 09/13/22 09/13/22 12:09 14:26 Temperature 36.8 C Heart Rate 67 67 Respiratory 16 12 Rate Blood Pressure 131/95 H 120/71 O2 Saturation 99 96 Oxygen O2 Source Room air PD MEDICAL DECISION MAKING - ED course Complexity details: considered differential, d/w patient ED course: This is a 26-year-old female who presented with headache over the course last week that was not improved with lybj-gnz-[id number] medication. She is well- appearing on physical exam, appears in no distress, has stable vital signs. No meningeal signs. It was not considered the worst headache of her life or thunderclap headache. She had no neurologic changes. Discussed treatment options including oral medication, IM injections or IV medication and patient wanted to proceed with IV medication. We placed an IV and give the patient Decadron as well as metoclopramide. The patient unfortunately had an adverse reaction to the Decadron and became quite anxious and upset. She states she had a history of panic attacks and feels like that is what is going on. She requested that the IV infusion be stopped and it was in she declined any additional medication at this time. Her headache did improve but then she was quite anxious. We monitored her and did deep breathing exercise and until her panic attack passed. The patient was advised that she likely had an restriction to the Decadron and recommended avoiding in the future. In regards to headache, her symptoms had improved though I did review supportive measures with her, recommended staying well-hydrated, resting aquatic room. She may try Afrin uddp-adk-pasmbxi saline nasal spray, decongestant if desired. Given her symptoms improve, I did not prescribe any medication but discussed supportive measures to use at home. She was concerned about a possible sinus infection #8 see no indication of bacterial sinusitis at this time and recommend supportive measures for this including. Return precautions reviewed w/ the patient in detail. Departure - Departure Disposition: Home, Self Care Clinical Impression: Acute viral sinusitis Headache Qualifiers: Headache type: tension-type Headache chronicity pattern: acute headache Intractability: not intractable Qualified Code(s): G44.209 - Tension-type headache, unspecified, not intractable Condition: Good Instructions: ED Headache Sinus, ED Sinusitis No Abx Comments: You presented with a headache that is likely due to a sinusitis. Sinusitis is likely viral and you do not need antibiotics at this time. Continue ibuprofen and tylenol and you may take a decongestant such as sudafed at home. We did attempt some headache medications here however you had an adverse reaction (panic/anxiety) likely due to the steroid. This is a relatively common side effect and should not continue to cause you any issues after you leave the hospital. Discharge Date/Time: 09/13/22 14:45
[2022-09-13 14:27] VITALS: BP 120/71
== END 2022-09-13 14:45 | disposition home or self-care (01) ==
LOC: ED 11:13
DX: J01.90 Acute sinusitis, unspecified (principal); G44.209 Tension-type headache, unspecified, not intractable; Z87.891 Personal history of nicotine dependence
CPT/HCPCS: 96374; 99281; 99283; J2765

== ENCOUNTER 2022-10-14 08:00 | Outpatient (CLI) | payer MEDICAID ==
[2022-10-15 17:07] LABS: BACTERIAL VAGINOSIS DNA NEGATIVE (NEGATIVE); CANDIDA GLABRATA DNA NEGATIVE (NEGATIVE); CANDIDA GROUP DNA NEGATIVE (NEGATIVE); CANDIDA KRUSEI DNA NEGATIVE (NEGATIVE); TRICHOMONAS VAGINALIS DNA NEGATIVE (NEGATIVE)
== END 2022-10-14 23:59 | disposition home or self-care (01) ==
LOC: LAB.WC 08:00
PROVIDERS: ATTEND Nurse Practitioner
DX: N89.8 Other specified noninflammatory disorders of vagina (principal)
CPT/HCPCS: 81514

== ENCOUNTER 2022-10-16 08:00 | Outpatient (CLI) | payer MEDICAID ==
[2022-10-16 16:37] LABS: BILIRUBIN,URINE NEGATIVE (NEGATIVE); GLUCOSE, URINE (UA) NEGATIVE (NEGATIVE); KETONES,URINE (UA) NEGATIVE (NEGATIVE); LEUKOCYTE ESTERASE, URINE NEGATIVE (NEGATIVE); NITRITE,URINE NEGATIVE (NEGATIVE); OCCULT BLOOD,URINE NEGATIVE (NEGATIVE); PROTEIN,URINE NEGATIVE (NEGATIVE); UROBILINOGEN,URINE 0.2 (NORMAL) E.U./dL (NORMAL)
[2022-10-16 16:40] LABS: CLARITY,URINE CLEAR (CLEAR)
[2022-10-16 16:55] LABS: BACTERIA,URINE None Seen /HPF (None Seen); MUCUS,URINE Moderate Strands; RBC,URINE 0-5 /HPF (0-5); SQUAMOUS EPITHELIAL CELL,UR FEW Squamous (<= Few); WBC,URINE 0-3 /HPF (0-5)
[2022-10-16 23:36] LABS: CHLAMYDIA TRACHOMATIS DNA NEGATIVE (NEGATIVE); NEISSERIA GONORRHOEAE DNA NEGATIVE (NEGATIVE)
[2022-10-17 00:30] LABS: BACTERIAL VAGINOSIS DNA NEGATIVE (NEGATIVE); CANDIDA GLABRATA DNA NEGATIVE (NEGATIVE); CANDIDA GROUP DNA NEGATIVE (NEGATIVE); CANDIDA KRUSEI DNA NEGATIVE (NEGATIVE); TRICHOMONAS VAGINALIS DNA NEGATIVE (NEGATIVE)
== END 2022-10-16 23:59 | disposition home or self-care (01) ==
LOC: LAB 08:00
PROVIDERS: ATTEND Nurse Practitioner
DX: R10.2 Pelvic and perineal pain (principal); Z32.01 Encounter for pregnancy test, result positive
CPT/HCPCS: 81001; 81514; 87086; 87491; 87591; 87661

== ENCOUNTER 2022-10-16 15:39 | Outpatient (CLI) | payer MEDICAID ==
[2022-10-16 16:21] LABS: BASOPHILS # (AUTO) 0.1 10^3/uL (0.0-0.1); BASOPHILS % (AUTO) 0.5 %; EOSINOPHILS # (AUTO) 0.2 10^3/uL (0.0-0.7); EOSINOPHILS % (AUTO) 1.2 %; HCT - HEMATOCRIT 43.3 % (37.0-47.0); HGB - HEMOGLOBIN 13.8 g/dL (12.0-16.0); LYMPHOCYTES # (AUTO) 3.5 10^3/uL (1.5-3.5); LYMPHOCYTES % (AUTO) 26.8 %; MEAN CORPUSCULAR HEMOGLOBIN 28.8 pg (27.0-31.0); MEAN CORPUSCULAR HGB CONC 31.9 g/dL (32.0-36.0); MEAN CORPUSCULAR VOLUME 90.2 fL (81.0-99.0); MEAN PLATELET VOLUME 9.9 fL (7.9-10.8); MONOCYTES # (AUTO) 0.8 10^3/uL (0.0-1.0); MONOCYTES % (AUTO) 6.1 %; NEUTROPHILS # (AUTO) 8.5 10^3/uL (1.5-6.6); NEUTROPHILS % (AUTO) 65.1 %; PLT - PLATELET COUNT 268 10^3/uL (130-450)
[2022-10-17 06:09] LABS: RPR Non Reactive (Non Reactive)
[2022-10-17 07:09] LABS: HBsAG SCREEN Negative (Negative); HIV SCREEN 4TH GENERATION Non Reactive (Non Reactive)
[2022-10-17 08:10] LABS: HCV AB 0.1 s/co ratio (0.0-0.9); VARICELLA-ZOSTER AB IGG <135 index (Immune >165)
== END 2022-10-16 15:40 | disposition home or self-care (01) ==
LOC: LAB 15:39
PROVIDERS: ATTEND Nurse Practitioner
DX: Z32.01 Encounter for pregnancy test, result positive (principal)
CPT/HCPCS: 36415; 84702; 85025; 86592; 86762; 86787; 86803; 86850; 86900; 86901; 87340; 87389

== ENCOUNTER 2022-10-19 09:22 | Emergency (ER) | payer MEDICAID ==
[2022-10-19 09:46] LABS: BILIRUBIN,URINE NEGATIVE (NEGATIVE); GLUCOSE, URINE (UA) NEGATIVE (NEGATIVE); KETONES,URINE (UA) TRACE mg/dL (NEGATIVE); LEUKOCYTE ESTERASE, URINE NEGATIVE (NEGATIVE); NITRITE,URINE NEGATIVE (NEGATIVE); OCCULT BLOOD,URINE NEGATIVE (NEGATIVE); PROTEIN,URINE NEGATIVE (NEGATIVE); UROBILINOGEN,URINE 0.2 (NORMAL) E.U./dL (NORMAL)
[2022-10-19 09:48] LABS: CLARITY,URINE CLEAR (CLEAR); HCG UR QUAL POSITIVE
[2022-10-19 09:55] LABS: BASOPHILS % (AUTO) 0.3 %; EOSINOPHILS % (AUTO) 0.3 %; HCT - HEMATOCRIT 42.2 % (37.0-47.0); HGB - HEMOGLOBIN 14.2 g/dL (12.0-16.0); LYMPHOCYTES # (AUTO) 0.8 10^3/uL (1.5-3.5); LYMPHOCYTES % (AUTO) 5.3 %; MEAN CORPUSCULAR HGB CONC 33.6 g/dL (32.0-36.0); MEAN CORPUSCULAR VOLUME 86.1 fL (81.0-99.0); MEAN PLATELET VOLUME 9.6 fL (7.9-10.8); MONOCYTES # (AUTO) 0.6 10^3/uL (0.0-1.0); MONOCYTES % (AUTO) 3.7 %; PLT - PLATELET COUNT 292 10^3/uL (130-450); RED CELL DISTRIBUTION WIDTH 13.9 % (12.0-15.0); WHITE BLOOD COUNT 15.6 x10^3/uL (4.8-10.8)
[2022-10-19 10:11] LABS: ALBUMIN 4.2 g/dL (3.2-5.5); ALBUMIN/GLOBULIN RATIO 1.2 (1.0-2.2); BILIRUBIN,TOTAL 0.9 mg/dL (0.2-1.0); CALCIUM 9.5 mg/dL (8.5-10.3); CREATININE 0.5 mg/dL (0.4-1.0); POTASSIUM 3.3 mmol/L (3.5-5.0); TOTAL PROTEIN 7.7 g/dL (6.7-8.2)
--- NOTE | 2022-10-19 12:08 | Ultrasound Report ---
PROCEDURE: OB First Trimester INDICATIONS: early ; abd cramping/pain OUTSIDE/PRIOR DATING DATA: Last menstrual period (LMP): 09/02/2022. LMP-based estimated date of delivery (DIAMANTE): 06/09/2023. First dating scan (date and location): 10/19/2022. Estimated date of delivery (DIAMANTE) from first dating scan: 06/10/2023. The below data below was generated using the working DIAMANTE of 06/10/2023 TECHNIQUE: Real-time scanning was performed of the fetus and maternal pelvic organs, with image documentation. COMPARISON: None FINDINGS: Embryo: Single intrauterine gestation sac is seen with fetus and yolk sac seen. Lares-rump length me asures 6.6 mm with estimated gestational age of 6 weeks, 4 days. Heart rate: 150 bpm. Cervix is closed and measures 3.15 cm in length. Measurement variability in dating: +/- 4 weeks by LMP, +/- 7 days by mean sac diameter (use before 6 weeks gestation if crown-rump length not able to be measured), +/- 5 days by crown-rump length (6-12 weeks gestation). Maternal organs: Ovaries are visualized and are within normal limits. A small corpus luteal cyst is seen in left ovary. IMPRESSION: 1. Single live intrauterine gestation with fetus and yolk sac seen. heart rate is 150 bpm. Portia mated gestational age is 6 weeks, 4 days. 2. Small corpus luteal cyst is seen in left ovary. Reviewed by: Gilson Santacruz MD on 10/19/2022 12:06 PM PST Approved by: Gilson Santacruz MD on 10/19/2022 12:06 PM PST Station ID: [id number]
[2022-10-19] MEDS ORDERED: SODIUM CHLORIDE 0.9% 1,000 ML IV STA (12:48)
[2022-10-19] MEDS ORDERED: ONDANSETRON 4 MG/2 ML VIAL IVP STA (12:48)
--- NOTE | 2022-10-19 12:52 | ED Physician Documentation ---
History of Present Illness - Stated complaint Stated Complaint: VOMITING/ABD PX - Chief complaint Chief Complaint: Abd Pain - Additonal information Additional information: History obtained from patient. Reliable and good historian. 26-year-old female who is presents the emergency department for 24 hours of uncontrolled nausea and vomiting. Reports and son are sick at home with similar. Initially she was unsure if this was morning sickness but it is worse than she expected with her first thus she presents here. She reports generalized abdominal pain/cramping. Denies vaginal bleeding or discharge. G3, . LMP 09/02/2022. She does have a large transverse abdominal incision that was secondary to a bowel obstruction in infancy. She denies any similar episodes since. Patient is scheduled to see our women[facility] health clinic [facility] next Wednesday to establish care Review of Systems Constitutional: reports: Reviewed and negative Cardiac: reports: Reviewed and negative Respiratory: reports: Reviewed and negative GI: reports: Abdominal Pain, Nausea, Vomiting. denies: Constipation, Diarrhea, Hematemesis : reports: LMP (09/02/2022), Now EGA Skin: reports: Reviewed and negative Musculoskeletal: reports: Reviewed and negative PD PAST MEDICAL HISTORY - Past Medical History Cardiovascular: None, Other (RLS) Respiratory: None Neuro: None Endocrine/Autoimmune: None GI: GERD (during ), Other : None Psych: Anxiety, ADD/ADHD Musculoskeletal: None Derm: None - Past Surgical History Past Surgical History: Yes General: Bowel surgery (as an ) HEENT: Tonsil/Adenoidectomy - Present Medications Home Medications: Ambulatory Orders Medication Instructions Recorded Confirmed Sertraline HCl 150 mg PO DAILY 01/22/19 06/20/22 Ondansetron Odt [Zofran] 4 mg TL Q6H PRN #20 tablet 10/19/22 - Allergies Allergies/Adverse Reactions: Allergies Allergy/AdvReac Type Severity Reaction Status Date / Time dexamethasone AdvReac Anxiety Verified 10/19/22 09:31 - Social History Does the pt smoke?: No Smoking Status: Former smoker Does the pt drink ETOH?: No Does the pt have substance abuse?: No - Immunizations Immunizations are current?: Yes - POLST Patient has POLST: No PD ED PE NORMAL - General General: Alert and oriented X 3. No: No acute distress (Appears nauseated) - HEENT HEENT: Atraumatic - Neck Neck: Supple, no meningeal sign, No adenopathy - Cardiac Cardiac: RRR, No murmur - Respiratory Respiratory: No respiratory distress, Clear bilaterally - Abdomen Abdomen: Normal bowel sounds, Soft. No: Non tender (Mild suprapubic tenderness. Some generalized belly tenderness though nonfocal. No guarding or rebound. Large well-healed transverse incision across the mid abdomen from infancy) - Back Back: No CVA TTP - Derm Derm: Normal color, Warm and dry, No rash - Extremities Extremities: No deformity, No tenderness to palpate, Normal ROM s pain - Neuro Neuro: Alert and oriented X 3, candy attendant 2-12 intact Eye Opening: Spontaneous Motor: Obeys Commands Verbal: Oriented GCS Score: 15 Results - Vitals Vitals: Vital Signs - 24 hr 10/19/22 10/19/22 09:27 12:45 Temperature 36.6 C 36.6 C Heart Rate 86 86 Respiratory 18 18 Rate Blood Pressure 123/71 123/71 O2 Saturation 100 100 Oxygen O2 Source Room air - Labs Labs: Laboratory Tests 10/19/22 10/19/22 10/19/22 09:40 09:50 09:50 WBC 15.6 H RBC 4.90 Hgb 14.2 Hct 42.2 MCV 86.1 MCH 29.0 MCHC 33.6 RDW 13.9 Plt Count 292 MPV 9.6 Neut # (Auto) 14.0 H Lymph # (Auto) 0.8 L Dent # (Auto) 0.6 Eos # (Auto) 0.0 Baso # (Auto) 0.0 Absolute Nucleated RBC 0.00 Nucleated RBC % 0.0 Sodium 134 L Potassium 3.3 L Chloride 104 Carbon Dioxide 19 L Anion Gap 11.0 BUN 10 Creatinine 0.5 Estimated GFR (MDRD) 147 Glucose 110 H Calcium 9.5 Total Bilirubin 0.9 AST 22 ALT 28 Alkaline Phosphatase 77 Total Protein 7.7 Albumin 4.2 Globulin 3.5 Albumin/Globulin Ratio 1.2 Lipase 27 HCG, Quant Urine Color DARK YELLOW Urine Clarity CLEAR Urine pH 7.0 Ur Specific [place] 1.020 Urine Protein NEGATIVE Urine Glucose (UA) NEGATIVE Urine Ketones TRACE Urine Occult Blood NEGATIVE Urine Nitrite NEGATIVE Urine Bilirubin NEGATIVE Urine Urobilinogen 0.2 (NORMAL) Ur Leukocyte Esterase NEGATIVE Ur Microscopic Review NOT INDICATED Urine Culture Comments NOT INDICATED Urine HCG, Qual POSITIVE Blood Type 10/19/22 10/19/22 10:34 10:41 WBC RBC Hgb Hct MCV MCH MCHC RDW Plt Count MPV Neut # (Auto) Lymph # (Auto) Dent # (Auto) Eos # (Auto) Baso # (Auto) Absolute Nucleated RBC Nucleated RBC % Sodium Potassium Chloride Carbon Dioxide Anion Gap BUN Creatinine Estimated GFR (MDRD) Glucose Calcium Total Bilirubin AST ALT Alkaline Phosphatase Total Protein Albumin Globulin Albumin/Globulin Ratio Lipase HCG, Quant 45941.00 Urine Color Urine Clarity Urine pH Ur Specific [place] Urine Protein Urine Glucose (UA) Urine Ketones Urine Occult Blood Urine Nitrite Urine Bilirubin Urine Urobilinogen Ur Leukocyte Esterase Ur Microscopic Review Urine Culture Comments Urine HCG, Qual Blood Type O POSITIVE - Rads (name of study) OB US Radiology: Final report received (Single live IUP with fetus and yolk sac. heart rate 150. Estimated gestational age of 6 weeks 4 days. Small left corpus luteal cyst) PD Medical Decision Making - ED course Complexity details: reviewed results, re-evaluated patient, considered differential, d/w patient ED course: 26-year-old female presents emergency department for evaluation of 2 days uncontrolled nausea and vomiting. This is in the setting of first trimester as well similar illness in her and son at home. Patient is G3, . She is Rh+. Today in the emergency department we did obtain a CBC that showed a modest leukocytosis of just over 15,000. Her electrolytes were also evaluated and she has minor hypokalemia with a potassium of 3.3. Urinalysis was not consistent with infection. On exam she had a mildly tender abdomen generally though it was nonperitoneal. A pelvic/OB ultrasound was completed and we do find a live IUP measuring at just over 6 weeks 4 days with a heart rate of 150. No associated subchorionic hematoma or hemorrhage. Associated left corpus luteal cyst is present. Here in the emergency department she was administered Zofran as well as a liter of fluid. Following the Zofran she has markedly improved nausea and is tolerating sips of clear liquids. It is unclear to this provider if the nausea and vomiting is a viral enteritis given similar in and son at home or if this is also associated with routine morning sickness in early . However as Zofran has seemingly improved her symptoms she will be discharged with a prescription for Zofran to the pharmacy. She is scheduled to follow-up with OB early next week. I have lower suspicion for acute appendicitis or bowel obstruction given improvement in symptoms with conservative measures here in the emergency department. However I did discuss with patient that if her symptoms fail to improve despite this treatment she should return immediately to the ER for a s econd evaluation. Departure - Departure Disposition: Home, Self Care Clinical Impression: Vomiting affecting , Hypokalemia Condition: Stable Record reviewed to determine appropriate education?: Yes Prescriptions: Ondansetron Odt [Zofran] 4 mg TL Q6H PRN #20 tablet PRN Reason: Nausea / Vomiting Comments: Varsha vaughn were seen in the emergency department for nausea and vomiting for the last few days. Your and son have been sick with similar. It is not clear to us right now whether you have a viral gastroenteritis or if this is associated with usual morning sickness. However your symptoms have gotten better with the administration of the medication called Zofran as well as some IV fluids. I recommend that you take frequent sips of clear liquids at home and over the next 24 hours slowly advance your diet with bananas, rice, applesauce and then toast. The ultrasound today shows that you have a 6-week 4-day live intrauterine . At this time the baby had a heart rate of about 150. There were no worrisome findings on the ultrasound otherwise. I sent a prescription for some Zofran tablets to [facility] in [place]. If however despite the Zofran you have uncontrolled vomiting, develop fevers, have any chest pain or shortness of air you should return immediately to the ER for a second evaluation. It is also important you continue to follow closely with OB next week as you are already scheduled.
[2022-10-19 14:04] VITALS: BP 113/69
== END 2022-10-19 14:30 | disposition home or self-care (01) ==
LOC: ED 09:22
DX: O21.0 Mild hyperemesis gravidarum (principal); O99.281 Endocrine, nutritional and metabolic diseases complicating pregnancy, first trimester; E87.6 Hypokalemia; Z3A.01 Less than 8 weeks gestation of pregnancy
CPT/HCPCS: 36415; 80053; 81001; 81003; 81025; 83690; 84702; 85025; 86900; 86901; 87086; 96361; 96374; 99284

== ENCOUNTER 2022-11-12 10:15 | Outpatient (CLI) | payer MEDICAID | END 2022-11-12 10:16 | disposition home or self-care (01) | LOC: LAB 10:15 | PROVIDERS: ATTEND Nurse Practitioner | DX: Z36.89 Encounter for other specified antenatal screening (principal) ==

== ENCOUNTER 2023-01-19 13:39 | Outpatient (CLI) | payer MEDICAID ==
[2023-01-19 20:38] LABS: ESTIMATED AVERAGE GLUCOSE 85 mg/dL (70-100); HEMOGLOBIN A1c% 4.6 % (4.27-6.07)
== END 2023-01-19 13:40 | disposition home or self-care (01) ==
LOC: LAB 13:39
PROVIDERS: ATTEND Nurse Practitioner
DX: O26.842 Uterine size-date discrepancy, second trimester (principal)
CPT/HCPCS: 36415; 82950; 83036

== ENCOUNTER 2023-01-21 07:40 | Outpatient (CLI) | payer MEDICAID ==
[2023-01-21 08:10] LABS: GTT GLUCOSE,FASTING 82 mg/dL (70-100)
== END 2023-01-21 07:41 | disposition home or self-care (01) ==
LOC: LAB 07:40
PROVIDERS: ATTEND Nurse Practitioner
DX: R73.9 Hyperglycemia, unspecified (principal)
CPT/HCPCS: 36415; 82951; 82952

== ENCOUNTER 2023-01-21 10:52 | Outpatient (CLI) | payer MEDICAID ==
--- NOTE | 2023-01-21 17:37 | Ultrasound Report ---
PROCEDURE: OB Detailed Eval INDICATIONS: SUPERVISION OF OUTSIDE/PRIOR DATING DATA: Last menstrual period (LMP): 09/02/2022. LMP-based estimated date of delivery (DIAMANTE): 06/09/2023. First dating scan (date and location): 10/19/2022. Estimated date of delivery (DIAMANTE) from first dating scan: 06/10/2023. The below data below was generated using the working DIAMANTE of 06/10/2023 TECHNIQUE: Real-time scanning was performed of the fetus, with image documentation and biometric measurements. Endovaginal scanning: None COMPARISON: None. FINDINGS: General: A single living intrauterine gestation is present. Presentation: Breech Placenta: Placental position is posterior, without previa. Amniotic fluid index: 18.2 cm, a 2.9 percentile for gestational age. heart rate: 140 beats per minute. Maternal cervical canal: 3.2 cm long; normal length is 2.5 cm or more. biometrics: Biparietal diameter: 5.4 cm, 22 week 4 day Head circumference: 19.7 cm, 21 week 6 day Abdominal circumference: 15.9 cm, 20 week 6 day Femur length: 3.4 cm, 20 week 5 day Estimated gestational age from initial scan: 20 week 0 day Composite gestational age from present scan: 21 week 1 day Estimated weight and percentile: 389.6 g, 91.8 percentile Measurement variability in biometric dating: +/- 10 days from 12-20 weeks gestation, +/- 2 weeks from 20-30 weeks gestation, +/- 3 weeks at 30 weeks gestation or later. Anatomic survey: Neuro: Ventricles are normal at less than 10 mm. Cisterna magna is normal at 3-11 mm. Cerebellum i s normal in size and morphology. Nuchal skin fold: Normal at less than 6 mm between 14 and 20 weeks gestational age. Face: Nose and lips, facial profile are normal. Spine: No evidence for spina bifida. Heart: 4-chambered heart is present, with normal ventricular outflow tracts. Diaphragm: Diaphragm is intact. Stomach: Left-sided stomach is present. Kidneys: No hydronephrosis. Normal is less than 5 mm in 2nd trimester, less than 7 mm in 3rd trimester. Cord: 3 vessel cord has orthotopic insertion. Bladder: Normal in size. Extremities: All 4 extremities are visualized. IMPRESSION: Single live intrauterine consistent with 21 week 1 day gestation Reviewed by: Rodrigo Adler MD on 01/21/2023 4:36 PM AKJACOB Approved by: Rodrigo Adler MD on 01/21/2023 4:36 PM AKJACOB Station ID: [id number]
== END 2023-01-21 10:53 | disposition home or self-care (01) ==
LOC: DI 10:52
PROVIDERS: ATTEND Nurse Practitioner
DX: Z34.82 Encounter for supervision of other normal pregnancy, second trimester (principal); Z36.89 Encounter for other specified antenatal screening; R73.9 Hyperglycemia, unspecified
CPT/HCPCS: 36415; 82951; 82952

== ENCOUNTER 2023-02-01 16:41 | Outpatient (CLI) | payer MEDICAID | END 2023-02-01 16:42 | disposition home or self-care (01) | LOC: LAB 16:41 | PROVIDERS: ATTEND Nurse Practitioner | DX: G25.81 Restless legs syndrome (principal); R68.89 Other general symptoms and signs | CPT/HCPCS: 36415; 84443 ==

== ENCOUNTER 2023-02-19 19:54 | Outpatient (CLI) | payer MEDICAID ==
[2023-02-19 20:48] LABS: BILIRUBIN,URINE NEGATIVE (NEGATIVE); CLARITY,URINE CLEAR (CLEAR); GLUCOSE, URINE (UA) NEGATIVE (NEGATIVE); KETONES,URINE (UA) NEGATIVE (NEGATIVE); LEUKOCYTE ESTERASE, URINE TRACE (NEGATIVE); NITRITE,URINE NEGATIVE (NEGATIVE); OCCULT BLOOD,URINE NEGATIVE (NEGATIVE); PROTEIN,URINE NEGATIVE (NEGATIVE); UROBILINOGEN,URINE 0.2 (NORMAL) E.U./dL (NORMAL)
[2023-02-19 20:57] LABS: BACTERIA,URINE Few /HPF (None Seen); MUCUS,URINE Few Strands; RBC,URINE 0-5 /HPF (0-5); SQUAMOUS EPITHELIAL CELL,UR FEW Squamous (<= Few); WBC,URINE 0-3 /HPF (0-5)
--- NOTE | 2023-02-19 21:35 | PROVIDER PROGRESS NOTE ---
- HPI Chief Complaint: Labor Current : Vital Signs Temperature 98.2 F 02/19/23 20:11 Heart Rate 87 02/19/23 20:11 Respiratory Rate 20 02/19/23 20:11 Blood Pressure 113/75 02/19/23 20:11 Temperature 98.2 F 02/19/23 20:11 Heart Rate 86 02/19/23 20:11 Respiratory Rate 20 02/19/23 20:11 Blood Pressure 113/75 02/19/23 20:11 O2 Saturation If not protocol: Oxygen Flow, liters/minute - Plan Plan: 27yo at 24.2w presenting with concern of having contraction pains. She reports they come and go a few times today and would like to make sure everything is ok. Denies leaking fluid or bleeding. Good movement. care at [facility] and uncomplicated. Denies nausea, vomiting. Normal BM. VSS GEN: NAD CV: Regular rate Resp: Breathing unlabored Abd: soft, nt, no rebound or guarding Ext: nt, no edema Speculum: normal white discharge, os appears closed SVE: closed/long/-3 TV US: 3.6cm CL 3.2cm [place]: no contractions FHR 150s Too early for NST 27yo at 24.2w, false labor - Not currently in labor - PTL precautions - Follow up as scheduled - Discharge to home - Follow up urine culture
[2023-02-19 21:44] VITALS: BP 117/75
== END 2023-02-19 21:23 | disposition home or self-care (01) ==
LOC: WFO 19:54 → FBP 19:57 → WFO 21:23
PROVIDERS: ATTEND Obstetrics & Gynecology
DX: O47.02 False labor before 37 completed weeks of gestation, second trimester (principal); Z3A.24 24 weeks gestation of pregnancy
CPT/HCPCS: 81001; 87086; 99214

== ENCOUNTER 2023-02-23 21:29 | Outpatient (CLI) | payer MEDICAID ==
--- NOTE | 2023-02-24 10:29 | Ultrasound Report ---
PROCEDURE: OB F/U or Repeat INDICATIONS: UTERINE SIZE DATE DISCREPENCY OUTSIDE/PRIOR DATING DATA: Last menstrual period (LMP): 09/02/2022. LMP-based estimated date of delivery (DIAMANTE): 06/09/2023. First dating scan (date and location): 10/19/2022. Estimated date of delivery (DIAMANTE) from first dating scan: 06/10/2023. The below data below was generated using the ultrasound DIAMANTE of 06/10/2023 TECHNIQUE: Real-time scanning was performed of the fetus, with image documentation and biometric measurements. Endovaginal scanning: Not performed COMPARISON: 01/21/2023 FINDINGS: General: A single living intrauterine gestation is present. Presentation: Transverse with head to maternal left Placenta: Placental position is posterior, without previa. Amniotic fluid index: 20.9 cm, within normal limits for gestational age (91.8 percentile). heart rate: 132 beats per minute. Maternal cervical canal: 5.15 cm long; normal length is 2.5 cm or more. biometrics: Biparietal diameter: 7.04 cm, 28 weeks 2 days Head circumference: 25.47 cm, 27 weeks 5 days Abdominal circumference: 21.52 cm, 26 weeks 0 days Femur length: 4.54 cm, 25 weeks 0 days Estimated gestational age from initial scan: 24 weeks 5 days Composite gestational age from present scan: 26 weeks 5 days Estimated weight and percentile: 871.6 g, 89.8 percentile Measurement variability in biometric dating: +/- 10 days from 12-20 weeks gestation, +/- 2 weeks from 20-30 weeks gestation, +/- 3 weeks at 30 weeks gestation or more. Other: Not applicable. IMPRESSION: 1. Living late second trimester intrauterine with no sonographic evidence of complications. 2. Current ultrasound age is 2 weeks greater than clinical age based on LMP and an initial early firs t trimester ultrasound. Reviewed by: Rigoberto Shafer MD on 02/24/2023 10:28 AM PDT Approved by: Rigoberto Shafer MD on 02/24/2023 10:28 AM PDT Station ID: [id number]
== END 2023-02-23 21:30 | disposition home or self-care (01) ==
LOC: DI 21:29
PROVIDERS: ATTEND Nurse Practitioner
DX: O26.842 Uterine size-date discrepancy, second trimester (principal); Z3A.26 26 weeks gestation of pregnancy

== ENCOUNTER 2023-03-12 10:10 | Outpatient (CLI) | payer MEDICAID ==
--- NOTE | 2023-03-12 16:37 | Ultrasound Report ---
PROCEDURE: OB F/U or Repeat INDICATIONS: UTERINE SIZE DATE DISCREPENCY OUTSIDE/PRIOR DATING DATA: Last menstrual period (LMP): 09/02/2022. LMP-based estimated date of delivery (DIAMANTE): 06/09/2023. First dating scan (date and location): 10/19/2022. Estimated date of delivery (DIAMANTE) from first dating scan: 06/10/2023. TECHNIQUE: Real-time scanning was performed of the fetus, with image documentation and biometric measurements. Endovaginal scanning: Not performed COMPARISON: 02/23/2023. FINDINGS: General: A single living intrauterine gestation is present. Presentation: Transverse maternal left Placenta: Placental position is posterior, without previa. Amniotic fluid index: 20.9 cm, normal for gestational age. heart rate: 132 beats per minute. Maternal cervical canal: 5.2 cm long; normal length is 2.5 cm or more. biometrics: Biparietal diameter: 7.0 cm 28 weeks 2 days Head circumference: 25.5 cm 27 weeks 5 days Abdominal circumference: 21.5 cm 26 weeks 0 days Femur length: 4.5 cm 25 weeks 0 days Estimated gestational age from initial scan: 24 weeks 5 days. Composite gestational age from present scan: 26 weeks 5 days Estimated weight and percentile: 872 g, 89.8 percentile. Measurement variability in biometric dating: +/- 10 days from 12-20 weeks gestation, +/- 2 weeks from 20-30 weeks gestation, +/- 3 weeks at 30 weeks gestation or more. Other: Not applicable. IMPRESSION: 1. Single living intrauterine . 2. Estimated weight at the 89.8th percentile. Reviewed by: Leland Garza MD on 03/12/2023 4:36 PM PDT Approved by: Leland Garza MD on 03/12/2023 4:36 PM PDT Station ID: [id number]
== END 2023-03-12 10:11 | disposition home or self-care (01) ==
LOC: DI 10:10
PROVIDERS: ATTEND Nurse Practitioner
DX: O26.843 Uterine size-date discrepancy, third trimester (principal); Z3A.29 29 weeks gestation of pregnancy

== ENCOUNTER 2023-04-12 08:00 | Outpatient (CLI) | payer MEDICAID ==
[2023-04-12 20:48] LABS: BACTERIAL VAGINOSIS DNA NEGATIVE (NEGATIVE); CANDIDA GLABRATA DNA NEGATIVE (NEGATIVE); CANDIDA GROUP DNA NEGATIVE (NEGATIVE); CANDIDA KRUSEI DNA NEGATIVE (NEGATIVE); TRICHOMONAS VAGINALIS DNA NEGATIVE (NEGATIVE)
== END 2023-04-12 23:59 | disposition home or self-care (01) ==
LOC: LAB.WC 08:00
PROVIDERS: ATTEND Nurse Practitioner
DX: N89.8 Other specified noninflammatory disorders of vagina (principal)
CPT/HCPCS: 81514

== ENCOUNTER 2023-04-23 10:20 | Emergency (ER) | payer MEDICAID ==
[2023-04-23 10:31] VITALS: BP 141/77
--- NOTE | 2023-04-23 10:52 | ED Physician Documentation ---
PD HPI FEMALE - Stated complaint Stated Complaint: REAR END PX - Chief complaint Chief Complaint: General - History obtained from History obtained from: Patient - History of Present Illness Timing - onset: How many days ago (has had hemorrhoids with some tenderness for few weeks during the . She is 33 wks gestation. However has had marked pain and tenderness in the past 2 days, increasing. Mild bleeding.) Timing - duration: Days Timing - details: Gradual onset, Still present Associated symptoms: No: Fever, Abdominal pain Contributing factors: Review of Systems Constitutional: denies: Fever, Chills Musculoskeletal: denies: Neck pain, Back pain PD PAST MEDICAL HISTORY - Past Medical History Cardiovascular: None, Other (RLS) Respiratory: None Neuro: None Endocrine/Autoimmune: None GI: GERD (during ), Other : None Psych: Anxiety, ADD/ADHD Musculoskeletal: None Derm: None - Past Surgical History Past Surgical History: Yes General: Bowel surgery (as an ) HEENT: Tonsil/Adenoidectomy - Present Medications Home Medications: Ambulatory Orders Medication Instructions Recorded Confirmed Sertraline HCl 150 mg PO DAILY 01/22/19 04/23/23 Docusate Sodium 100Mg Capsule 100 mg PO DAILY #20 cap 04/23/23 [Colace 100Mg Capsule] Hydrocortisone Supp [Anusol-Hc] 25 mg OR DAILY #4 supp 04/23/23 Lidocaine 1 applic TP Q4H PRN #15 gm 04/23/23 No122/Iron/Folic Acid 1 tab PO DAILY 04/23/23 04/23/23 [ Multi Tablet] - Allergies Allergies/Adverse Reactions: Allergies Allergy/AdvReac Type Severity Reaction Status Date / Time dexamethasone AdvReac Anxiety Verified 04/23/23 10:30 - Social History Does the pt smoke?: No Smoking Status: Former smoker Does the pt drink ETOH?: No Does the pt have substance abuse?: No - Immunizations Immunizations are current?: Yes - POLST Patient has POLST: No PD ED PE NORMAL - Vitals Vital signs reviewed: Yes - General General: Alert and oriented X 3, Well developed/nourished, Other (appears in pain due to hemorrhoids. Is lying on side. ) - Abdomen Abdomen: Soft, Non tender, Other (gravid with fundus above umbilicus c/w dates. Nursing checked FHR by doppler and patient feeling movement. ) - Female Female : Deferred - Rectal Rectal: Other (with nurse present: rectum shows ring of hemorrhoids around anus, mostly soft and nontender. There is one rounded grape sized area that is very tender, purple and firm c/w thrombosed hemorrhoid. ) Results - Vitals Vitals: Oxygen O2 Source Room air Procedures - General procedure General procedure: local lido with epi to the hemorrhoid that is thrombosed. Scalpel then used to incise the apex of it and forceps to remove clots. The hemorrhoid deflated and became less tender. Minimal bleeding. PD Medical Decision Making - ED course Complexity details: considered differential (has had hemorrhoids with one now thrombosed and very painful. Discussed with pt and agreed on lancing it. ), d/w patient Departure - Departure Disposition: 01 Home, Self Care Clinical Impression: Thrombosed external hemorrhoid, Rectal pain Condition: Stable Record reviewed to determine appropriate education?: Yes Instructions: ED Hemorrhoids Prescriptions: Hydrocortisone Supp [Anusol-Hc] 25 mg OR DAILY #4 supp Docusate Sodium 100Mg Capsule [Colace 100Mg Capsule] 100 mg PO DAILY #20 cap Lidocaine 1 applic TP Q4H PRN #15 gm PRN Reason: Pain 1-4 Comments: You did have a clotted/thrombosed portion of the hemorrhoid that we lanced and g ot the clot out. This deflated that area. The remainder of the hemorrhoids are still there with some inflammation. Treat that topically with the topical hydrocortisone and also Preparation H topically. You can also use lidocaine ointment to the area to help with some of the discomfort/pain. The hemorrhoids likely extend internally a bit so he also add a hydrocortisone suppository daily for the next 3 to 4 days. This should help the hemorrhoids deflate. Consider stool softener as well such as docusate. Tylenol if needed for pains. Follow-up with your primary care/[employer]. I sent prescriptions for things to the [facility] pharmacy in [place]. Discharge Date/Time: 04/23/23 12:06
[2023-04-23] MEDS ORDERED: LIDOCAINE OINTMENT 5% 35.44 GM TUBE TOP STA (11:38)
== END 2023-04-23 12:06 | disposition home or self-care (01) ==
LOC: ED 10:20
DX: O22.43 Hemorrhoids in pregnancy, third trimester (principal); Z3A.33 33 weeks gestation of pregnancy; Z87.891 Personal history of nicotine dependence
CPT/HCPCS: 46083; 99283; A9270

== ENCOUNTER 2023-05-03 14:25 | Outpatient (CLI) | payer MEDICAID ==
[2023-05-03 14:34] LABS: HCT - HEMATOCRIT 33.5 % (37.0-47.0); HGB - HEMOGLOBIN 10.5 g/dL (12.0-16.0); MEAN CORPUSCULAR HEMOGLOBIN 27.6 pg (27.0-31.0); MEAN CORPUSCULAR HGB CONC 31.3 g/dL (32.0-36.0); MEAN CORPUSCULAR VOLUME 87.9 fL (81.0-99.0); MEAN PLATELET VOLUME 9.1 fL (7.9-10.8); RED BLOOD COUNT 3.81 10^6/uL (4.20-5.40); WHITE BLOOD COUNT 12.7 x10^3/uL (4.8-10.8)
== END 2023-05-03 14:26 | disposition home or self-care (01) ==
LOC: LAB 14:25
PROVIDERS: ATTEND Nurse Practitioner
DX: Z34.83 Encounter for supervision of other normal pregnancy, third trimester (principal)
CPT/HCPCS: 36415; 82728; 85027

== ENCOUNTER 2023-05-05 08:37 | Outpatient (CLI) | payer MEDICAID ==
--- NOTE | 2023-05-05 20:11 | Ultrasound Report ---
PROCEDURE: OB F/U or Repeat INDICATIONS: UTERINE SIZE DATE DISCREPENCY OUTSIDE/PRIOR DATING DATA: Last menstrual period (LMP): 09/02/2022. LMP-based estimated date of delivery (DIAMANTE): 06/09/2023. First dating scan (date and location): 10/19/2022. Estimated date of delivery (DIAMANTE) from first dating scan: 06/10/2023. The below data below was generated using the ultrasound DIAMANTE of 3 TECHNIQUE: Real-time scanning was performed of the fetus, with image documentation and biometric measurements. Endovaginal scanning: Not performed. COMPARISON: OB ultrasound 03/12/2023 FINDINGS: General: A single living intrauterine gestation is present. Presentation: Cephalic Placenta: Placental position is posterior, without previa. Amniotic fluid index: 16.7 cm, 66th percentile for gestational age. heart rate: 136 beats per minute. Maternal cervical canal: Not well visualized biometrics: Biparietal diameter: 9.1 cm, 37 weeks 0 days Head circumference: 32.5 cm, 36 weeks 6 days Abdominal circumference: 34.5 cm, 38 weeks 6 days Femur length: 6.5 cm, 33 weeks 3 days Estimated gestational age from initial scan: 34 weeks 6 days Composite gestational age from present scan: 36 weeks 4 days Estimated weight and percentile: 3143 g, 96th percentile Measurement variability in biometric dating: +/- 10 days from 12-20 weeks gestation, +/- 2 weeks from 20-30 weeks gestation, +/- 3 weeks at 30 weeks gestation or more. Other: Not applicable. IMPRESSION: 1.Single live intrauterine . 2.Estimated weight 3143 g, 96th percentile for gestational age. 3.Amniotic fluid index is normal at 16.7 cm. Reviewed by: Leland Schmidt MD on 05/05/2023 8:10 PM PDT Approved by: Leland Schmidt MD on 05/05/2023 8:10 PM PDT Station ID: [id number]
== END 2023-05-05 08:38 | disposition home or self-care (01) ==
LOC: DI 08:37
PROVIDERS: ATTEND Nurse Practitioner
DX: O26.843 Uterine size-date discrepancy, third trimester (principal); Z3A.36 36 weeks gestation of pregnancy

== ENCOUNTER 2023-05-05 16:11 | Outpatient (CLI) | payer MEDICAID ==
[2023-05-05 17:43] VITALS: BP 115/66
--- NOTE | 2023-05-05 18:26 | PROVIDER PROGRESS NOTE ---
- HPI Chief Complaint: Labor Current : Current EDU 06/09/23 Gestation 35 Weeks and 0 Days 3 Para 1 Vital Signs Temperature 99.5 F 05/05/23 17:00 Heart Rate 120 H 05/05/23 17:00 Respiratory Rate 18 05/05/23 17:00 Blood Pressure 115/66 05/05/23 17:00 Temperature 99.5 F 05/05/23 17:00 Heart Rate 120 H 05/05/23 17:00 Respiratory Rate 18 05/05/23 17:00 Blood Pressure 115/66 05/05/23 17:00 O2 Saturation If not protocol: Oxygen Flow, liters/minute - Procedures OB Procedure Performed: NST Diagnosis/Indication for NST: labor NST Procedure: NST Procedure Start Date 05/05/23 Start Time 16:22 Stop Time 17:00 Vibroacoustic Stimulation Used No Patient States Movement Yes EFM: 130s, moderate variability, positive 15x15 accelerations, no decelerations [place]: irregular contractions NST reactive Performed and read 05/05/23 Service Date of procedure: 05/05/23 - Plan Plan: 27yo at 35w presenting with cramping pains. Denies leaking fluid or bleeding. Good movement. care at . VSS GEN: NAD CV: Regular rate Resp: Breathing unlabored Abd: nt, mild contractions palpated Ext: nt SVE closed/50/-3 NST reactive 27yo at 35w, false labor - NST reactive - Labor precautions - Follow up as scheduled
== END 2023-05-05 17:10 | disposition home or self-care (01) ==
LOC: WFO 16:11 → FBP 16:13 → WFO 17:10
PROVIDERS: ATTEND Obstetrics & Gynecology
DX: O47.03 False labor before 37 completed weeks of gestation, third trimester (principal); Z3A.35 35 weeks gestation of pregnancy
CPT/HCPCS: 59025

== ENCOUNTER 2023-05-06 17:12 | Outpatient (CLI) | payer MEDICAID ==
[2023-05-06 17:44] VITALS: BP 124/81
[2023-05-06 18:09] LABS: BILIRUBIN,URINE NEGATIVE (NEGATIVE); GLUCOSE, URINE (UA) NEGATIVE (NEGATIVE); KETONES,URINE (UA) NEGATIVE (NEGATIVE); LEUKOCYTE ESTERASE, URINE NEGATIVE (NEGATIVE); NITRITE,URINE NEGATIVE (NEGATIVE); OCCULT BLOOD,URINE NEGATIVE (NEGATIVE); PROTEIN,URINE NEGATIVE (NEGATIVE); UROBILINOGEN,URINE 0.2 (NORMAL) E.U./dL (NORMAL)
[2023-05-06 18:11] LABS: CLARITY,URINE CLEAR (CLEAR)
[2023-05-06] MEDS ORDERED: ACETAMINOPHEN 325 MG TABLET PO PRN (18:45)
[2023-05-06] MEDS ORDERED: LIDOCAINE PATCH 5% TOP PRN (18:46)
--- NOTE | 2023-05-06 18:56 | PROVIDER PROGRESS NOTE ---
- HPI Chief Complaint: Other (patient presenting with back pain and cramping. She has had the back pain for years and twitching in her arms and legs. Positive movement. Denies vaginal bleeding and leakage of fluid.) Current : Vital Signs Temperature 98.2 F 05/06/23 17:23 Heart Rate 93 05/06/23 17:23 Respiratory Rate 20 05/06/23 17:23 Blood Pressure 124/81 H 05/06/23 17:23 Temperature 98.2 F 05/06/23 17:23 Heart Rate 93 05/06/23 17:23 Respiratory Rate 20 05/06/23 17:23 Blood Pressure 124/81 H 05/06/23 17:23 O2 Saturation If not protocol: Oxygen Flow, liters/minute - Exam Gen: Patient would not sit still long enough for a complete NST Back: no point tenderness, patient amble to ambulate Abd: gravid, soft uterine tone SVE: 0/50/-3 - Procedures Diagnosis/Indication for NST: Other NST Procedure: NST Procedure Start Time 16:22 Stop Time 17:00 NST was incomplete because patient was unable to sit still long enough for exam. She stated her back hurt. Positive movement and moderate variability on tracing. - Plan Plan: lidocaine patch and tylenol. Patient is not in labor. She has no obstetrical concerns. Back pain has been a chronic issue. Advised to avoid NSAIDs and to follow up in the office for management.
== END 2023-05-06 19:00 | disposition home or self-care (01) ==
LOC: WFO 17:12 → FBP 17:15 → WFO 19:00
PROVIDERS: ATTEND Obstetrics & Gynecology Obstetrics
DX: O99.891 Other specified diseases and conditions complicating pregnancy (principal); M54.9 Dorsalgia, unspecified
CPT/HCPCS: 81003; 99215; A9270; 81001; 87086

== ENCOUNTER 2023-05-10 08:00 | Outpatient (CLI) | payer MEDICAID | END 2023-05-10 23:59 | disposition home or self-care (01) | LOC: LAB.WC 08:00 | PROVIDERS: ATTEND Obstetrics & Gynecology | DX: Z34.83 Encounter for supervision of other normal pregnancy, third trimester (principal) | CPT/HCPCS: 87797 ==

== ENCOUNTER 2023-05-18 08:00 | Outpatient (CLI) | payer MEDICAID ==
[2023-05-18 16:16] LABS: BILIRUBIN,URINE NEGATIVE (NEGATIVE); GLUCOSE, URINE (UA) NEGATIVE (NEGATIVE); KETONES,URINE (UA) NEGATIVE (NEGATIVE); LEUKOCYTE ESTERASE, URINE NEGATIVE (NEGATIVE); NITRITE,URINE NEGATIVE (NEGATIVE); OCCULT BLOOD,URINE NEGATIVE (NEGATIVE); PROTEIN,URINE NEGATIVE (NEGATIVE); UROBILINOGEN,URINE 0.2 (NORMAL) E.U./dL (NORMAL)
[2023-05-18 16:19] LABS: CLARITY,URINE CLOUDY (CLEAR)
[2023-05-18 16:39] LABS: AMORPHOUS SEDIMENT,UR Moderate /LPF; BACTERIA,URINE Rare /HPF (None Seen); RBC,URINE 0-5 /HPF (0-5); SQUAMOUS EPITHELIAL CELL,UR RARE Squamous (<= Few); WBC,URINE 0-3 /HPF (0-5)
== END 2023-05-18 23:59 | disposition home or self-care (01) ==
LOC: LAB.WC 08:00
PROVIDERS: ATTEND Nurse Practitioner
DX: N30.90 Cystitis, unspecified without hematuria (principal)
CPT/HCPCS: 81001; 87086

== ENCOUNTER 2023-05-18 11:06 | Outpatient (CLI) | payer MEDICAID ==
[2023-05-18 11:23] VITALS: BP 103/78
--- NOTE | 2023-05-18 13:10 | PROVIDER PROGRESS NOTE ---
- HPI Chief Complaint: Labor Check Current : Current EDU 06/09/23 Gestation 36 Weeks and 6 Days 3 Para 1 Vital Signs Temperature 97.3 F L 05/18/23 11:12 Heart Rate 118 H 05/18/23 11:12 Respiratory Rate 16 05/18/23 11:12 Blood Pressure 103/78 05/18/23 11:12 Temperature 97.3 F L 05/18/23 11:12 Heart Rate 118 H 05/18/23 11:12 Respiratory Rate 16 05/18/23 11:12 Blood Pressure 103/78 05/18/23 11:12 O2 Saturation If not protocol: Oxygen Flow, liters/minute 27yo @ 36w6d gestation presents with ctx + bloody show x1 c/b several aches & pains spasticity after dx of RLS since 14yo - worsening now and severe LBP PMH: denies -- though has + pain points c/w fibromyalgia PSH: GI surgery x3 as adopted fallopian pain and surgery to remove hydrosalpynx POB: 4yo boy teresa, 8#6oz, uncomplicated, breastfed x 2 years PGYN: has had irregular periods since of teresa remote h/o CT, s/p tx no h/o problems with her pap Meds: sertraline, FeSO4, colace, PNV All: adhesives Soc: neg x3 Support: MARGIE Colin, same FOB as teresa Confidant: FOB, girlfriends, moms (stepmom, mom, mom) Fam: unremarkable Wellness: eats veggies and walks. - Exam NAD mild ctx to palpation 145 mod heather + A cells no D cells reactive Cx: 2/th/hi/firm/post no blood on glove no signs of ROM. - Procedures OB Procedure Performed: NST NST Procedure: NST Procedure Start Date 05/18/23 Start Time 11:15 Stop Time 11:56 Vibroacoustic Stimulation Used No Patient States Movement Yes 145 mod heather + A cells no D cells reactive toco: poor pickup of ctx mild ctx Q6-10 Service Date of procedure: 05/18/23 Findings: reactive and reasuring NST not in labor - Plan Plan: D/C home with precautions start PO mag
== END 2023-05-18 12:09 | disposition home or self-care (01) ==
LOC: WFO 11:06 → FBP 11:09 → WFO 12:09
PROVIDERS: ATTEND Obstetrics & Gynecology
DX: O47.03 False labor before 37 completed weeks of gestation, third trimester (principal); Z3A.36 36 weeks gestation of pregnancy; N30.90 Cystitis, unspecified without hematuria
CPT/HCPCS: 59025; 81001; 87086; 99215

== ENCOUNTER 2023-05-21 14:09 | Outpatient (CLI) | payer MEDICAID ==
[2023-05-21 14:37] VITALS: BP 106/71
[2023-05-21 15:36] LABS: RUPTURE OF MEMBRANES PLUS NEGATIVE (NEGATIVE)
--- NOTE | 2023-05-25 08:58 | PROVIDER PROGRESS NOTE ---
- HPI Chief Complaint: Leakage of vaginal fluid Current : Current EDU 06/10/23 Gestation 37 Weeks and 1 Days 3 Para 1 Vital Signs Temperature 98.2 F 05/21/23 14:24 Heart Rate 109 H 05/21/23 14:24 Respiratory Rate 20 05/21/23 14:24 Blood Pressure 106/71 05/21/23 14:24 Temperature 98.2 F 05/21/23 14:24 Heart Rate 109 H 05/21/23 14:24 Respiratory Rate 05/21/23 14:24 Blood Pressure 106/71 05/21/23 14:24 O2 Saturation If not protocol: Oxygen Flow, liters/minute - Procedures OB Procedure Performed: NST Diagnosis/Indication for NST: Other (Leaking fluid, rule out labor) NST Procedure: NST Procedure Start Date 05/21/23 Start Time 14:19 Stop Time 15:01 Vibroacoustic Stimulation Used No Patient States Movement Yes EFM: 140s, moderate variability, positive 15x15 accelerations, no decelerations Finderne: no contractions NST reactive/Cat 1 Performed and read 05/21/23 Service Date of procedure: 05/21/23 - Plan Plan: 27yo at 37.2w presents for concern of leaking fluid. Occasional contractions. Denies bleeding. Good movement. care at , complicated by BMI 32, anxiety, depression, GBS POS, varicella NON immune. VSS GEN: NAD NST reactive SVE 1cm ROM PLUS NEG 27yo at 37.2w, false labor - Membranes intact - NST reactive - Follow up as scheduled
== END 2023-05-21 15:50 | disposition home or self-care (01) ==
LOC: WFO 14:09 → FBP 14:12 → WFO 15:50
PROVIDERS: ATTEND Obstetrics & Gynecology
DX: O47.1 False labor at or after 37 completed weeks of gestation (principal); Z3A.37 37 weeks gestation of pregnancy
CPT/HCPCS: 59025; 84112; 99213

== ENCOUNTER 2023-06-01 08:59 | Outpatient (CLI) | payer MEDICAID ==
[2023-06-01 09:53] VITALS: BP 121/67
--- NOTE | 2023-06-01 10:30 | PROCEDURE REPORT ---
- HPI Diagnosis/Indication for NST: Other (pt presents for rule out labor) Current EDU 06/09/23 Gestation 38 Weeks and 6 Days 3 Para 1 Vital Signs Temperature 98.4 F 06/01/23 09:27 Heart Rate 90 06/01/23 09:27 Respiratory Rate 18 06/01/23 09:27 Blood Pressure 121/67 06/01/23 09:27 Temperature 98.4 F 06/01/23 09:27 Heart Rate 90 06/01/23 09:27 Respiratory Rate 18 06/01/23 09:27 Blood Pressure 121/67 06/01/23 09:27 O2 Saturation If not protocol: Oxygen Flow, liters/minute - NST Procedure NST Procedure Start Date 06/01/23 Start Time 09:04 Stop Time 09:39 Vibroacoustic Stimulation Used No Patient States Movement Yes 130 mod heather + A cells no D cells reactive 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 - Results and Plan Findings/Impression: reassuring NST mom not in labor Plan: not in labor 27y0 @ 38&6 here for r/o labor with ctx increasing in frequency and intensity overnight no cx change from clinic 1.5cm not in labor FWB reassuring, NST reactive precautions and instructions reviewed f/u appt is tomorrow.
== END 2023-06-01 10:11 | disposition home or self-care (01) ==
LOC: WFO 08:59 → FBP 09:00 → WFO 10:11
PROVIDERS: ATTEND Obstetrics & Gynecology
DX: O47.1 False labor at or after 37 completed weeks of gestation (principal); Z3A.38 38 weeks gestation of pregnancy
CPT/HCPCS: 59025; 99213

== ENCOUNTER 2023-06-06 16:24 | Outpatient (CLI) | payer MEDICAID ==
[2023-06-06 16:45] VITALS: BP 116/86; O2SAT 100
--- NOTE | 2023-06-06 21:07 | PROVIDER PROGRESS NOTE ---
- HPI Chief Complaint: Labor Check Current : Current EDU 06/09/23 Gestation 39 Weeks and 4 Days 3 Para 1 Vital Signs Temperature 97.7 F 06/06/23 16:33 Heart Rate 77 06/06/23 16:33 Respiratory Rate 17 06/06/23 16:33 Blood Pressure 116/86 H 06/06/23 16:33 O2 Saturation 100 06/06/23 16:33 Temperature 97.7 F 06/06/23 16:33 Heart Rate 77 06/06/23 16:33 Respiratory Rate 17 06/06/23 16:33 Blood Pressure 116/86 H 06/06/23 16:33 O2 Saturation 100 06/06/23 16:33 If not protocol: Oxygen Flow, liters/minute - Procedures OB Procedure Performed: NST NST Procedure: NST Procedure Start Date 06/06/23 Start Time 16:45 Stop Time 18:10 Vibroacoustic Stimulation Used No Patient States Movement Yes EFM: 150s, moderate variability, positive 15x15 accelerations, possible deceleration to 120s so extended monitoring performed Tatamy: no contractions NST reactive Performed and read 06/06/23 Service Date of procedure: 06/06/23 - Plan Plan: 27yo at 39.4w presenting with pelvic pressure. No leaking or bleeding. Good movement. VSS GEN: NAD CV: Regular rate Abd: soft Ext: nt SVE 3/50/-3 27yo at 39.4w, false labor - NST reactive - Plan for IOL this week - Discharge, labor precautions
== END 2023-06-06 18:15 | disposition home or self-care (01) ==
LOC: WFO 16:24 → FBP 16:26 → WFO 18:15
PROVIDERS: ATTEND Obstetrics & Gynecology
DX: O47.1 False labor at or after 37 completed weeks of gestation (principal); Z3A.39 39 weeks gestation of pregnancy
CPT/HCPCS: 59025; 99215

== ENCOUNTER 2023-06-08 16:28 | Outpatient (CLI) | payer MEDICAID ==
[2023-06-08 16:53] VITALS: BP 123/66; O2SAT 98
--- NOTE | 2023-06-08 17:11 | PROVIDER PROGRESS NOTE ---
- HPI Chief Complaint: Labor Check Current : Current EDU 06/09/23 Gestation 39 Weeks and 6 Days 2 Para 1 Vital Signs Temperature 98 F 06/08/23 16:47 Heart Rate 94 06/08/23 16:47 Respiratory Rate 18 06/08/23 16:47 Blood Pressure 123/66 06/08/23 16:47 O2 Saturation 98 06/08/23 16:47 Temperature 98 F 06/08/23 16:47 Heart Rate 94 06/08/23 16:47 Respiratory Rate 18 06/08/23 16:47 Blood Pressure 123/66 06/08/23 16:47 O2 Saturation 98 06/08/23 16:47 If not protocol: Oxygen Flow, liters/minute - Exam 250/-2 - Procedures OB Procedure Performed: NST NST Procedure: NST Procedure Start Date 06/08/23 Start Time 16:45 Stop Time 18:10 Vibroacoustic Stimulation Used No Patient States Movement Yes 39+5 weeks Reactive NST, +accels - Plan Plan: Patient will come in for induction of labor tomorrow. Counseled patient to return for decreased heel movement, regular contractions, vaginal bleeding, leakage of fluid, or any other concerns
== END 2023-06-08 17:30 | disposition home or self-care (01) ==
LOC: WFO 16:28 → FBP 16:33 → WFO 17:30
PROVIDERS: ATTEND Obstetrics & Gynecology Obstetrics
DX: O47.1 False labor at or after 37 completed weeks of gestation (principal); Z3A.39 39 weeks gestation of pregnancy
CPT/HCPCS: 59025; 99213

== ENCOUNTER 2023-06-09 07:42 | Inpatient (IN) | payer MEDICAID ==
[2023-06-09 08:40] LABS: BASOPHILS % (AUTO) 0.3 %; EOSINOPHILS # (AUTO) 0.1 10^3/uL (0.0-0.7); EOSINOPHILS % (AUTO) 1.1 %; HCT - HEMATOCRIT 34.7 % (37.0-47.0); HGB - HEMOGLOBIN 10.9 g/dL (12.0-16.0); LYMPHOCYTES # (AUTO) 2.2 10^3/uL (1.5-3.5); LYMPHOCYTES % (AUTO) 17.8 %; MEAN CORPUSCULAR HGB CONC 31.4 g/dL (32.0-36.0); MEAN CORPUSCULAR VOLUME 86.1 fL (81.0-99.0); MEAN PLATELET VOLUME 9.4 fL (7.9-10.8); MONOCYTES % (AUTO) 7.9 %; NEUTROPHILS # (AUTO) 8.8 10^3/uL (1.5-6.6); NEUTROPHILS % (AUTO) 72.3 %; PLT - PLATELET COUNT 288 10^3/uL (130-450); RED BLOOD COUNT 4.03 10^6/uL (4.20-5.40); RED CELL DISTRIBUTION WIDTH 16.6 % (12.0-15.0); WHITE BLOOD COUNT 12.2 x10^3/uL (4.8-10.8)
[2023-06-09] MEDS ORDERED: LACTATED RINGERS 1,000 ML IV PRN (08:44)
[2023-06-09] MEDS ORDERED: CARBOPROST TROMETHAMINE 250 MCG/ML AMP IM PRN (08:44)
[2023-06-09] MEDS ORDERED: TRANEXAMIC ACID IN NACL 1,000 MG/100 ML BAG IV PRN (08:44)
[2023-06-09] MEDS ORDERED: lidocaine 1% 20 ML MDV ID PRN (08:44)
[2023-06-09] MEDS ORDERED: OXYTOCIN/SODIUM CHLORIDE 500 ML IV PRN (08:44)
[2023-06-09] MEDS ORDERED: LABETALOL 20 MG/4 ML SYRINGE IVP PRN ×3 (08:44)
[2023-06-09] MEDS ORDERED: AMPICILLIN 2 GM in SODIUM CHLORIDE 0.9% MINIBAG 100 ML IV ONE (08:44)
[2023-06-09] MEDS ORDERED: METHYLERGONOVINE 0.2 MG/ML VIAL IM PRN (08:44)
[2023-06-09] MEDS ORDERED: NIFEdipine 10 MG CAPSULE PO PRN (08:44)
[2023-06-09] MEDS ORDERED: miSOPROStoL 200 MCG TABLET BC PRN (08:44)
[2023-06-09] MEDS ORDERED: SODIUM CHLORIDE FLUSH 0.9% 10 ML SYRINGE IVP PRN (08:44)
[2023-06-09] MEDS ORDERED: fentaNYL 100 MCG/2 ML VIAL IVP PRN (08:44)
[2023-06-09] MEDS ORDERED: miSOPROStoL 200 MCG TABLET PR PRN (08:44)
[2023-06-09] MEDS ORDERED: hydrALAZINE INJ 20 MG/ML VIAL IVP PRN ×2 (08:44)
[2023-06-09] MEDS ORDERED: OXYTOCIN 10 UNIT/ML VIAL IM PRN (08:44)
--- NOTE | 2023-06-09 08:52 | HISTORY & PHYSICAL EXAMINATION ---
Admit History - Visit Reason Visit Reason: Other (Induction of labor) - : 3 Parity: 1 : 1 Care: positive: [facility] Complications This : positive: None Smoking Status: Former smoker - Mother's Labs Mother's Blood Type: positive: O Mother's RH: positive: Positive GBS: positive: Group B Strep Positive Rubella Status: positive: Immune - Other Maternal History Other Maternal History: Patient is a 27-year-old -0-1-1 at 40 weeks presenting for induction of labor. has been uncomplicated. Patient has a significant history of restless leg syndrome. She does have a previous surgical history of obstruction in the digestive tract as a that required a hemicolectomy. - HPI Diagnosis/Indication for NST: Other (inductoin of labor) - NST Procedure NST Procedure Start Time 16:45 Stop Time 17:05 reactive NST - Results and Plan Plan: 1. Induction: Risk, benefits, and alternatives discussed at length all questions answered. Decision made to proceed with Pitocin. Patient would like epidural when needed. 2. GBS positive:Prophylaxis Meds/Allgy - Home Medications Home Medications: Ambulatory Orders Medication Instructions Recorded Confirmed Sertraline HCl 150 mg PO DAILY 01/22/19 04/23/23 Docusate Sodium 100Mg Capsule 100 mg PO DAILY #20 cap 04/23/23 [Colace 100Mg Capsule] Hydrocortisone Supp [Anusol-Hc] 25 mg [place] DAILY #4 supp 04/23/23 Lidocaine 1 applic TP Q4H PRN #15 gm 04/23/23 No122/Iron/Folic Acid 1 tab PO DAILY 04/23/23 04/23/23 [ Multi Tablet] Magnesium Glycinate, Mag Oxide 120 mg PO DAILY #60 cap 05/18/23 [Magnesium Glycinate] - Allergies Allergies/Adverse Reactions: Allergies Allergy/AdvReac Type Severity Reaction Status Date / Time dexamethasone AdvReac Anxiety Verified 04/23/23 10:30 Plan for Labor - Plan For Labor I expect patient to be DC'd or transferred within 96 hours.: Yes
[2023-06-09] MEDS ORDERED: LACTATED RINGERS 1,000 ML IV SCH ×2 (09:00→17:00)
[2023-06-09] MEDS ORDERED: OXYTOCIN/SODIUM CHLORIDE 500 ML IV SCH (09:00)
[2023-06-09] MEDS ORDERED: SODIUM CHLORIDE FLUSH 0.9% 10 ML SYRINGE IVP SCH (09:00)
[2023-06-09] MEDS: SERTRALINE 50 MG TABLET PO SCH (10:08)
[2023-06-09] MEDS ORDERED: ROPIVACAINE 0.2% 200 MG/100 ML BAG EP ONE (12:37)
[2023-06-09] MEDS ORDERED: SODIUM CHLORIDE 0.9% 10 ML VIAL IVP ONE (12:59)
[2023-06-09] MEDS ORDERED: LIDOCAINE 2%-EPI 1:100000 20 ML MDV ONE (12:59)
[2023-06-09] MEDS ORDERED: AMPICILLIN 1 GM in SODIUM CHLORIDE 0.9% MINIBAG 100 ML IV SCH (13:00)
[2023-06-09] MEDS ORDERED: ONDANSETRON 4 MG/2 ML VIAL IVP PRN (13:17)
[2023-06-09] MEDS ORDERED: NALBUPHINE 10 MG/ML AMP IVP PRN (13:17)
[2023-06-09] MEDS ORDERED: METOCLOPRAMIDE 10 MG/2 ML VIAL IVP PRN (13:17)
[2023-06-09] MEDS ORDERED: diphenhydrAMINE INJ 50 MG/ML VIAL IVP PRN (13:17)
[2023-06-09] MEDS ORDERED: ROPIVACAINE 0.2% 200 MG/100 ML BAG EP PRN (13:17)
[2023-06-09] MEDS ORDERED: ePHEDrine 50 MG/ML VIAL IVP PRN (13:17)
[2023-06-09] MEDS ORDERED: NALOXONE 0.4 MG/ML VIAL IVP PRN (13:17)
--- NOTE | 2023-06-09 13:17 | ANESTHESIA ---
Pre-Anesthesia VS, & Labs - Diagnosis IOL for IUP - Procedure labor epidural Vital Signs: Temp Pulse Resp BP Pulse Ox O2 Flow Rate 36.6 C 97 20 120/71 06/09/23 08:44 06/09/23 08:44 06/09/23 08:44 06/09/23 08:44 Height: 5 ft 5 in Weight (kg): 92.986 kg Body Mass Index: 34.1 BMI Classification: Obese - NPO >8 hours - Is Patient ?: Yes, No - Lab Results Current Lab Results: Laboratory Tests 06/09/23 08:15: TSH 2.12 06/09/23 08:15: WBC 12.2 H, RBC 4.03 L, Hgb 10.9 L, Hct 34.7 L, MCV 86.1, MCH 27.0, MCHC 31.4 L, RDW 16.6 H, Plt Count 288, MPV 9.4, Neut # (Auto) 8.8 H, Lymph # (Auto) 2.2, Fleming # (Auto) 1.0, Eos # (Auto) 0.1, Baso # (Auto) 0.0, Absolute Nucleated RBC 0.00, Nucleated RBC % 0.0 06/09/23 08:15: Blood Type O POSITIVE, Antibody Screen NEGATIVE Lab results reviewed: Yes Fish Bones: 06/09/23 08:15 Home Medications and Allergies Active Medications Carboprost Tromethamine (Carboprost Tromethamine 250 Mcg/Ml Amp) 250 mcg IM .ONCE PRN PRN Reason: Hemorrhage Fentanyl (Fentanyl 100 Mcg/2 Ml Vial) 50 mcg IVP Q1H PRN PRN Reason: Severe Pain (score 7-10) Hydralazine HCl (Hydralazine Inj 20 Mg/Ml Vial) 5 - 10 mg IVP Q20M PRN; Protocol PRN Reason: SBP> or= 160 OR DBP> or= 110 Hydralazine HCl (Hydralazine Inj 20 Mg/Ml Vial) 10 mg IVP .ONCE PRN; Protocol PRN Reason: SBP> or= 160 OR DBP> or= 110 Lactated Ringer's (Lr) 500 mls @ 999 mls/hr IV PRN PRN PRN Reason: indications Oxytocin/Sodium Chloride (Pitocin/Sodium Chloride) 500 mls @ 999 mls/hr IV PRN PRN; Protocol PRN Reason: POST- HEMORR PREVENTION Tranexamic Acid (Tranexamic 1,000 Mg/100ml-Nacl) 1,000 mg in 100 mls @ 600 mls/hr IV Q30M PRN PRN Reason: EBL >1200mL and within 3hr Lactated Ringer's (Lr) 1,000 mls @ 125 mls/hr IV .Q8H [facility] Last Infusion: 06/09/23 12:50 Dose: 125 mls/hr Oxytocin/Sodium Chloride (Pitocin/Sodium Chloride) 500 mls @ 2 mls/hr IV TITR MARY JANE; Protocol Last Titration: 06/09/23 11:38 Dose: 6 milliunit/min, 6 mls/hr Ampicillin Sodium 1 gm/ Sodium (Chloride) 100 mls @ 200 mls/hr IV Q4H MARY JANE Labetalol HCl (Labetalol 20 Mg/4 Ml Syringe) 20 - 80 mg IVP Q10M PRN; Protocol PRN Reason: SBP> or= 160 OR DBP> or= 110 Labetalol HCl (Labetalol 20 Mg/4 Ml Syringe) 20 mg IVP .ONCE PRN; Protocol PRN Reason: SBP> or= 160 OR DBP> or= 110 Labetalol HCl (Labetalol 20 Mg/4 Ml Syringe) 20 - 40 mg IVP Q10M PRN; Protocol PRN Reason: SBP> or= 160 OR DBP> or= 110 Lidocaine HCl (Lidocaine 1% 20 Ml Mdv) 20 ml ID .ONCE PRN PRN Reason: PERINEAL REPAIR Stop: 06/12/23 08:45 Methylergonovine Maleate (Methylergonovine 0.2 Mg/Ml Vial) 0.2 mg IM .ONCE PRN PRN Reason: Hemorrhage Misoprostol (Misoprostol 200 Mcg Tablet) 600 mcg BC .ONCE PRN PRN Reason: Hemorrhage Misoprostol (Misoprostol 200 Mcg Tablet) 800 mcg OR .ONCE PRN PRN Reason: Hemorrhage Nifedipine (Nifedipine 10 Mg Capsule) 10 - 20 mg PO Q20M PRN; Protocol PRN Reason: SBP> or= 160 OR DBP> or= 110 Oxytocin (Oxytocin 10 Unit/Ml Vial) 10 unit IM .ONCE PRN PRN Reason: Step One if no IV access. Sertraline HCl (Sertraline 50 Mg Tablet) 150 mg PO DAILY [facility] Last Admin: 06/09/23 10:08 Dose: Not Given Sodium Chloride (Sodium Chloride Flush 0.9% 10 Ml Syringe) 10 ml IVP PRN PRN PRN Reason: NEEDED PER PROVIDER ORDERS Sodium Chloride (Sodium Chloride Flush 0.9% 10 Ml Syringe) 10 ml IVP Q8H [facility] Sertraline HCl 150 mg PO DAILY 01/22/19 No122/Iron/Folic Acid [ Multi Tablet] 1 tab PO DAILY 04/23/23 Allergies/Adverse Reactions: Allergies Allergy/AdvReac Type Severity Reaction Status Date / Time dexamethasone AdvReac Anxiety Verified 04/23/23 10:30 Anes History & Medical History - Anesthetic History Anesthesia Complications: reports: No previous complications Family history of Anesthesia Complications: Denies Family history of Malignant Hyperthermia: Denies - Medical History Cardiovascular: reports: None Pulmonary: reports: None Gastrointestinal: reports: GERD (rare symptoms during pregnany), Other Urinary: reports: None Neuro: reports: Other (appears to be severe restless leg syndrome) Musculoskeletal: reports: None Endocrine/Autoimmune: reports: None Blood Disorders: reports: None Skin: reports: None Smoking Status: Former smoker Psychosocial: reports: No issues indicated - Surgical History General: reports: Bowel surgery (as an infant) Eyes Ears Nose Throat (EENT): reports: Tonsil/Adenoidectomy - Obstetrical History : 3 Parity: 1 Complications: reports: None Exam General: Alert, Oriented x3, Cooperative Dental: WNL Mouth Openin Fingerbreadth Neck Mobility: Normal Mallampati classification: II Thyromental Distance: 4-6 cm Respiratory: Lungs clear Cardiovascular: Regular rate Plan Anesthesia Type: Epidural Regional Block: Per Surgeon's request for Post Op pain control Consent for Procedure(s) Verified and Reviewed: Yes Code Status: Attempt Resuscitation ASA classification: 2-Mild systemic disease Is this case an emergency?: No
--- NOTE | 2023-06-09 13:45 | PROVIDER PROGRESS NOTE ---
Labor Progress Note - Uterine Monitoring Uterine Monitoring Mode: positive: External toco Contraction Intensity: positive: Strong - Monitoring Monitor Mode: positive: External ultrasound Heart Rate Variability: positive: Moderate (6-25 bmp) Accelerations: positive: Present, 15x15 Decelerations: positive: None Strip Review: positive: Category I - Vaginal Exam Dilation (in cm): 4-5 Effacement (%): 70 Cervical Position: Midposition - Labor Progress Note Labor Progress Note/Additional Text: Pitocin at 6 Patient has epidural for pain management.
[2023-06-09] MEDS ORDERED: fentaNYL 100 MCG/2 ML VIAL ONE (14:28)
[2023-06-09] MEDS ORDERED: LIDOCAINE-PF 2% 10 ML AMP SUBQ ONE (14:29)
--- NOTE | 2023-06-09 14:38 | PROVIDER PROGRESS NOTE ---
Labor Progress Note - Uterine Monitoring Uterine Monitoring Mode: positive: External toco Contraction Intensity: positive: Strong - Monitoring Monitor Mode: positive: External ultrasound Heart Rate Variability: positive: Moderate (6-25 bmp) Accelerations: positive: Present, 15x15 Decelerations: positive: None Strip Review: positive: Category I - Vaginal Exam Dilation (in cm): 8 Effacement (%): 80 - Labor Progress Note Labor Progress Note/Additional Text: Patient doing well. Epidural was rebolused. Anticipate
--- NOTE | 2023-06-09 16:35 | DELIVERY NOTE ---
Delivery Note - Labor Labor: positive: Augmented by ARM, Augmented by oxytocin - Presentation Presentation: positive: Vertex - Nuchal Cord Nuchal Cord: positive: None - Anesthetic Anesthetic Type: - Amniotic Fluid Description Amniotic Fluid Description: positive: Clear - Episiotomy Type Episiotomy Type: positive: None - Laceration Laceration: positive: Other (superficial skid duc that required one [id number] suture) - Suture Suture Type: positive: Vicryl Suture Size: positive: 4-0 - Delivery Outcome Delivery Outcome: positive: Livebirth - : positive: Placed in direct skin contact with mother sex: positive: Male - Cord Cord: positive: 3 vessels - Placenta Placenta: positive: Intact, Spontaneous - Estimated Blood Loss Estimated Blood Loss (in cc): 150 - Post Delivery Events Post Delivery Events: positive: No post delivery events
--- NOTE | 2023-06-09 16:37 | PROCEDURE REPORT ---
Hospitalist Procedure Note - Procedure Note Procedure Note: Normal spontaneous vaginal delivery Stage I: Patient is a presenting for induction of labo. Pitocin sstarted. AROM with clear fluid. FHTs remained reassuring throughout the first stage. Patient received an epidural for anesthesia. Stage II: Male was atraumatcally delivered from MORENO position. There was no nuchal cord. The anterior shoulder was delivered without difficulty followed by the posterior shoulder and body. Infant was vigorous at delivery. Infant was bulb suctioned and cord was doubly clamped and cut. Infant was placed on mom. Weight and APGARS pending Stage III: Gentle cord traction and crede maneuver were used. Placenta delivered spontaneously. Placenta was noted to not be intact. 3 vessel cord. Course: Uterine tone was firm with massage after delivery of the placenta. Oxytocin was administered IV. Superficial vaginal laceration repaired with [id number] suture of 4-0 vicryl. Hemostasis was excellent. EBL 150 mL.
[2023-06-09] MEDS ORDERED: ACETAMINOPHEN 325 MG TABLET PO PRN (16:39)
[2023-06-09] MEDS: IBUPROFEN 600 MG TABLET PO SCH (19:45)
[2023-06-10] MEDS: IBUPROFEN 600 MG TABLET PO SCH ×2 (04:03→10:26)
[2023-06-10] MEDS ORDERED: DOCUSATE SODIUM 100 MG CAPSULE PO SCH (09:00)
[2023-06-10] MEDS: SERTRALINE 50 MG TABLET PO SCH (10:26)
--- NOTE | 2023-06-10 14:15 | Discharge Plan ---
Discharge Plan Problem Reviewed?: Yes Disposition: Home, Self Care Condition: Good Diet: Regular Activity Restrictions: No Restrictions Instruction Topics: Vaginal After, Depression No Smoking: If you smoke, Please STOP! Call for help. Follow-up with: Marietta Guevara ARNP [Provider Admit Priv/Credential] -
--- NOTE | 2023-06-10 14:29 | DISCHARGE SUMMARY ---
"Discharge Summary Admit Date: 06/09/23 Discharge Date: 06/10/23 Discharging Provider: Nikolai Heaton MD Condition at Discharge: Good Discharge Disposition: 01 Home, Self Care - DIAGNOSES Admission Diagnoses: 40 weeks gestation Induction of labor Restless leg syndrome Discharge Diagnoses with Status of Each Condition: 40 weeks gestation: Delivered Induction of labor: Delivered Restless leg syndrome: Stable Delivery of live escalera Status post spontaneous vaginal delivery - HPI History of Present Illness: Subjective Patient reports she is doing well. Lochia appropriate. Denies heavy bleeding. Ambulating. Pelvic and abdominal pain well-controlled. Tolerating oral intake. Diet: Regular. Voiding without difficulty. Passing flatus. Denies BM. Patient is bonding with baby in room Breast feeding going well. Denies feeling lightheaded, dizzy or excessively fatigued. Objective General: Alert, oriented, no apparent distress. Cardiovascular: Regular rate. Regular rhythm. Lungs: No increased work of breathing. Abdomen: Uterus firm. Below umbilicus. No guarding or rebound. Extremities: No pain on palpation. No cords palpated. Distal pulses intact. - CONSULTS | PROCEDURES Consultations: Anesthesia - HOSPITAL COURSE Hospital Course: Patient was admitted at 40 weeks gestation for induction of labor. Patient was started on oxytocin and received ampicillin for GBS sepsis prophylaxis. She received an epidural for pain control. She had an uncomplicated vaginal delivery. course was unremarkable and she desired to be discharged on day 1. - ALLERGIES Allergies/Adverse Reactions: Allergies Allergy/AdvReac Type Severity Reaction Status Date / Time dexamethasone AdvReac Anxiety Verified 04/23/23 10:30 - MEDICATIONS Home Medications: Ambulatory Orders Medication Instructions Recorded Confirmed Sertraline HCl 150 mg PO DAILY 01/22/19 04/23/23 Docusate Sodium 100Mg Capsule 100 mg PO DAILY #20 cap 04/23/23 [Colace 100Mg Capsule] Hydrocortisone Supp [Anusol-Hc] 25 mg [place] DAILY #4 supp 04/23/23 Lidocaine 1 applic TP Q4H PRN #15 gm 04/23/23 No122/Iron/Folic Acid 1 tab PO DAILY 04/23/23 04/23/23 [ Multi Tablet] Magnesium Glycinate, Mag Oxide 120 mg PO DAILY #60 cap 05/18/23 [Magnesium Glycinate] - LABS Result Diagrams: 06/09/23 08:15 - FOLLOW UP Follow Up: With OLINDA Velasquez in 1 week at [facility] - TIME SPENT Time Spent in Discharge (Minutes): 20"
[2023-06-10 14:39] VITALS: BP 106/58; O2SAT 99
--- NOTE | 2023-06-10 21:29 | Labor Flowsheet ---
Labor Flowsheet Datetime Report Generated by CPN: 06/10/2023 21:29 Datetime: 06/10/2023 14:28 VITAL SIGNS NBP Sys/Karla/Mean (mmHg): 106 : 58 : 70 Pulse: 83 Datetime: 06/10/2023 00:15 SpO2 (%): 99 Datetime: 06/09/2023 16:31 Stage of : Recovery Datetime: 06/09/2023 16:26 MEDICATIONS Pitocin (milliunits): Increased to @ 999 Datetime: 06/09/2023 16:19 Pushing Progress: Perineal Bulging; Rectal Bulging; Molding Noted; Caput Noted Datetime: 06/09/2023 16:17 LaborFlag: OB Triage Datetime: 06/09/2023 16:15 UTERINE ACTIVITY Monitor Mode: External Frequency (min): 2 Quality: Strong Duration (sec): 60 Pattern: Normal: <= 5 Contractions in 10 Minutes Resting Tone (Palpate): Relaxed ASSESSMENT A Monitor Mode: Telemetry FHR Baseline Rate : 140 Variability: Moderate 6-25 bpm Accelerations: 15X15 Decelerations: Early Category: Category I Datetime: 06/09/2023 15:37 STAGE 2 Pushing: Coached on Pushing; Urge to Push Pushing Position: Pushing with Contractions; Pushing Lithotomy Datetime: 06/09/2023 15:35 VAGINAL EXAM Dilatation (cm): 10.0 Effacement (%): 0 Station: 1 Exam by: Baltes COMMUNICATION Communication: RN at Bedside; Provider at Bedside Datetime: 06/09/2023 15:29 Temperature (C): 36.8 Datetime: 06/09/2023 15:00 Comments: Isolated variable. No intervention required. Datetime: 06/09/2023 14:30 Contraction Comments: Unable to adequately assess d/t pt position Datetime: 06/09/2023 14:00 I/O Interventions: Boucher Cath Inserted Patient Care Comments: 400ml UOP with Boucher Datetime: 06/09/2023 13:42 Membrane Status: Ruptured Membranes Ruptured Date/Time: 06/09/2023 13:45 Membranes Rupture Method: Artificial Amniotic Fluid Color: Clear Amniotic Fluid Amount: Moderate Datetime: 06/09/2023 13:25 PATIENT CARE IV/Blood Work: IV Bolus Given ml @ 300ml @ 600ml/hr Datetime: 06/09/2023 13:00 Epidural Procedure Other: Pump Started Datetime: 06/09/2023 12:57 Epidural Procedure: Test Dose Datetime: 06/09/2023 12:28 PROCEDURE TIME OUT Procedure Verify: Correct Patient Identity; Correct Side and Site are Marked; Accurate Procedure Co nsent Form; Agreement on Procedure to be Done; Correct Patient Position; Addressed Need to Administer Antibiotics or Fluids for Irrigation ANESTHESIA Anesthesia Plans: Epidural Epidural Positioning: Sitting Datetime: 06/09/2023 12:23 Provider Notified (Name): [employer] Christos Datetime: 06/09/2023 12:22 Anesthesia Comments: anesthesia here to see pt. Datetime: 06/09/2023 12:18 Medication Comments: started using nitrous oxide Datetime: 06/09/2023 12:00 Monitor Interventions for UA: [place] Adjusted Datetime: 06/09/2023 11:45 Monitor Interventions for FHR: Ultrasound Adjusted FHR Baseline Changes: No Baseline Change Actions for Decelerations: Other Datetime: 06/09/2023 11:30 Pitocin Checklist: At Least 1 Acceleration of 15 bpm x 15 Seconds in 30 Minutes or Adequate Variabi lity; No More than 1 Late Deceleration Occurred in Past 30 Minutes; No More than 2 Variable Decelerat ions > 60 Seconds in Duration and decreasing >60 bpm in 30 minutes; No More than 5 Uterine Contractio ns in 10 Minutes for any 20 Minute Interval; Uterus Palpates Soft between Contractions Datetime: 06/09/2023 09:57 Patient Position/Activity: Birthing Ball Datetime: 06/09/2023 09:51 Antibiotics: Ampicillin IV 2 Gm Datetime: 06/09/2023 08:33 Vaginal Bleeding: Normal Show Cervix, Consistency: Soft Cervix, Position: Midposition Datetime: 06/06/2023 18:02 Communication Comments: Dr. Cayabyab at bedside Datetime: 05/05/2023 16:50 MATERNAL ASSESSMENT Level of Consciousness: Alert DTR's/Clonus: No Clonus Headache: Denies Datetime: 05/05/2023 16:31 PAIN Pain Scale: 5 Pain Presence: Intermittent Pain Type: Cramping; Sharp Pain Location: Abdomen; Back; Perineum Pain Relief Measures: Comfort Measures Pain Coping: Other (Annotations: Pt grimacing and moving with cramping discomfort and movemen t.) Pain Assessment Comments: Encouraged Pt to increase hydration, rest and take Tylenol for cramping a nd overall body discomfort.
== END 2023-06-10 19:15 | disposition home or self-care (01) | DRG 807 ==
LOC: WFO 07:42 → FBP 07:45 → WFO 08:45 → FBP 08:45 → UNDOADMIN 08:45
PROVIDERS: ADMIT Obstetrics & Gynecology Obstetrics; ATTEND Obstetrics & Gynecology
PROC: 10E0XZZ Delivery of Products of Conception, External Approach (ICD-10-PCS; principal; 2023-06-09)
PROC: 10907ZC Drainage of Amniotic Fluid, Therapeutic from Products of Conception, Via Natural or Artificial Opening (ICD-10-PCS; 2023-06-09)
DX: O99.354 Diseases of the nervous system complicating childbirth (principal); Z37.0 Single live birth; G25.81 Restless legs syndrome; Z3A.40 40 weeks gestation of pregnancy; O99.824 Streptococcus B carrier state complicating childbirth; Z04.9 Encounter for examination and observation for unspecified reason; Z87.891 Personal history of nicotine dependence; O99.214 Obesity complicating childbirth
CPT/HCPCS: 36415; 84443; 85025; 86850; 86900; 86901; A9270; J7120

== ENCOUNTER 2024-04-05 14:29 | Outpatient (CLI) | payer MEDICAID ==
[2024-04-05 20:34] LABS: BASOPHILS # (AUTO) 0.1 10^3/uL (0.0-0.1); BASOPHILS % (AUTO) 0.8 %; EOSINOPHILS # (AUTO) 0.2 10^3/uL (0.0-0.7); EOSINOPHILS % (AUTO) 1.9 %; HCT - HEMATOCRIT 45.3 % (37.0-47.0); HGB - HEMOGLOBIN 13.8 g/dL (12.0-16.0); LYMPHOCYTES # (AUTO) 2.9 10^3/uL (1.5-3.5); LYMPHOCYTES % (AUTO) 33.1 %; MEAN CORPUSCULAR HEMOGLOBIN 29.1 pg (27.0-31.0); MEAN CORPUSCULAR HGB CONC 30.5 g/dL (32.0-36.0); MEAN CORPUSCULAR VOLUME 95.6 fL (81.0-99.0); MEAN PLATELET VOLUME 10.4 fL (7.9-10.8); MONOCYTES # (AUTO) 0.7 10^3/uL (0.0-1.0); MONOCYTES % (AUTO) 7.5 %; NEUTROPHILS # (AUTO) 4.9 10^3/uL (1.5-6.6); NEUTROPHILS % (AUTO) 56.4 %; PLT - PLATELET COUNT 294 10^3/uL (130-450); RED BLOOD COUNT 4.74 10^6/uL (4.20-5.40); RED CELL DISTRIBUTION WIDTH 13.2 % (12.0-15.0); WHITE BLOOD COUNT 8.8 x10^3/uL (4.8-10.8)
[2024-04-05 20:55] LABS: ALBUMIN 4.5 g/dL (3.2-5.5); ALBUMIN/GLOBULIN RATIO 1.6 (1.0-2.2); BILIRUBIN,TOTAL 0.4 mg/dL (0.2-1.0); CALCIUM 9.7 mg/dL (8.5-10.3); CREATININE 0.7 mg/dL (0.6-1.3); POTASSIUM 3.9 mmol/L (3.5-4.5); TOTAL PROTEIN 7.3 g/dL (6.4-8.9)
[2024-04-05 21:06] LABS: THYROID STIMULATING HORMONE 1.6 uIU/mL (0.34-5.60)
== END 2024-04-05 14:30 | disposition home or self-care (01) ==
LOC: LAB.S 14:29
PROVIDERS: ATTEND Internal Medicine
DX: R53.83 Other fatigue (principal); R63.5 Abnormal weight gain
CPT/HCPCS: 36415; 80053; 82607; 84443; 85025

== ENCOUNTER 2024-04-22 22:35 | Emergency (ER) | payer MEDICAID ==
[2024-04-22 22:45] VITALS: BP 136/79; O2SAT 96
--- NOTE | 2024-04-22 23:08 | XRAY Report ---
PROCEDURE: Finger(s) RT INDICATIONS: Trauma TECHNIQUE: AP hand, 2 views of the third finger(s) acquired. COMPARISON: None. FINDINGS: Bones: No acute displaced fracture. No dislocation. Soft tissues: No suspicious calcifications IMPRESSION: No acute radiographic abnormality. If there is high concern for occult injury, consider repeat radiog griffin or cross-sectional imaging. Reviewed by: Cresencio Gaytan MD on 04/22/2024 11:07 PM PDT Approved by: Cresencio Gaytan MD on 04/22/2024 11:07 PM PDT Station ID: [id number]
--- NOTE | 2024-04-22 23:21 | ED Physician Documentation ---
PD HPI UPPER EXT INJURY - Stated complaint Stated Complaint: R HAND INJ - Chief complaint Chief Complaint: Trauma Ext - History obtained from History obtained from: Patient - Additonal information Additional information: HPI from patient. Patient c/o right middle finger pain, sudden onset when the digit became crushed between floor and a rocking chair that was being used. She is right hand dominant. Denies numbness. Denies weakness although ROM is limited due to pain so difficult to assess strength in flexion/extension. The injury occurred at approximately 21:30 tonight. Pain is described as dull throbbing. PD PAST MEDICAL HISTORY - Past Medical History Past Medical History: Yes Cardiovascular: None Respiratory: None Neuro: Other Endocrine/Autoimmune: None GI: GERD, Other : None Psych: Anxiety, ADD/ADHD Musculoskeletal: None Derm: None - Past Surgical History Past Surgical History: Yes General: Bowel surgery HEENT: Tonsil/Adenoidectomy - Present Medications Home Medications: Ambulatory Orders Medication Instructions Recorded Confirmed Sertraline HCl 150 mg PO DAILY 01/22/19 04/23/23 Docusate Sodium 100Mg Capsule 100 mg PO DAILY #20 cap 04/23/23 [Colace 100Mg Capsule] Hydrocortisone Supp [Anusol-Hc] 25 mg AK DAILY #4 supp 04/23/23 Lidocaine 1 applic TP Q4H PRN #15 gm 04/23/23 No122/Iron/Folic Acid 1 tab PO DAILY 04/23/23 04/23/23 [ Multi Tablet] Magnesium Glycinate, Mag Oxide 120 mg PO DAILY #60 cap 05/18/23 [Magnesium Glycinate] - Allergies Allergies/Adverse Reactions: Allergies Allergy/AdvReac Type Severity Reaction Status Date / Time dexamethasone AdvReac Anxiety Verified 04/22/24 22:38 - Social History Does the pt smoke?: No Smoking Status: Never smoker Does the pt drink ETOH?: No Does the pt have substance abuse?: No - Immunizations Immunizations are current?: Yes - POLST Patient has POLST: No PD ED PE NORMAL - Vitals Vital signs reviewed: Yes - General General: Alert and oriented X 3, No acute distress, Well developed/nourished PD ED PE EXPANDED - Extremities MIKE UE/Hands Visual: 1 - swelling, tenderness (the digit is TTP and circumferentially edematous distal to PIP joint, but most notably (both tenderness and swelling) along middle phalanx. Brisk capillary refill at tip. no nail injury. no echymosis, abrasion, laceration) Results - Vitals Vitals: Oxygen O2 Source Room air - Rads (name of study) xrays hand, right middle finger Relevant Findings:: Prelim report reviewed, See rad report PD Medical Decision Making - ED course Complexity details: considered differential, d/w patient ED course: No evidence of injury (fracture, dislocation) on xrays. Splint placed for comfort and to speed healing. She declines analgesics, both in ED as well as rx. Says she will take ibuprofen when she gets home. Results d/w patient, return precautions reviewed, prognosis/expected course of pain/healing reviewed. Departure - Departure Disposition: Home, Self Care Clinical Impression: Crush injury to finger Qualifiers: Encounter type: initial encounter Qualified Code(s): S67.10XA - Crushing injury of unspecified finger(s), initial encounter Condition: Good Instructions: ED Crush Injury Finger No Fx Comments: There is no evidence of acute injury on the x-rays; specifically, no evidence of fracture or dislocation. We have placed a splint on your finger for purposes of both comfort as well and is immobilization to speed the healing process. As we discussed, the pain and swelling will likely worsen over the next 1 to 2 days, but should level off after that and improve every day afterwards. If you find that you are not improving within 3 to 4 days, seek follow-up with your primary care provider for reevaluation. Discharge Date/Time: 04/22/24 23:39
== END 2024-04-22 23:39 | disposition home or self-care (01) ==
LOC: ED 22:35
DX: S67.192A Crushing injury of right middle finger, initial encounter (principal); W23.1XXA Caught, crushed, jammed, or pinched between stationary objects, initial encounter
CPT/HCPCS: 99283